=== PATIENT | female | born 1945 | race African-American/Black ===

== ENCOUNTER 2016-08-27 08:21 | Inpatient (IN) | payer MEDICARE, MEDICAID ==
[2016-08-27] MEDS ORDERED: Aspirin Low Dose CHEW TAB* 81 MG PO ONE (08:46)
--- NOTE | 2016-08-27 09:34 | RAD ---
Indication: Chest pain. Single frontal view of the chest performed at 0917 hours was reviewed. Comparison is made with previous exam dated February 03, 2015. No mediastinal shift is noted. There is cardiomegaly. Lung peguero demonstrate no pleural fluid, pneumonia or pneumothorax. IMPRESSION: CARDIOMEGALY WITH NO ACTIVE CARDIOPULMONARY DISEASE.
[2016-08-27] MEDS ORDERED: Ondansetron INJ* 2 MG/ML VIAL ONE (09:47)
[2016-08-27 09:48] LABS: Hematocrit 29 % (35-47); Hemoglobin 9.8 g/dl (12.0-16.0); Mean Corpuscular HGB Conc 34 g/dl (31-36); Mean Corpuscular Hemoglobin 26 pg (27-31); Mean Corpuscular Volume 78 fL (80-97); Mean Platelet Volume 8 um3 (7.4-10.4); Red Blood Count 3.78 10^6/ul (4.0-5.4); Red Cell Distribution Width 16 % (10.5-15); White Blood Count 13.8 10^3/ul (3.5-10.8)
[2016-08-27] MEDS ORDERED: Ondansetron INJ* 2 MG/ML VIAL IV ONE (09:54)
[2016-08-27 10:07] LABS: Albumin 2.9 g/dL (3.2-5.2); BUN/Creatinine Ratio 15.2 (8-20); Calcium 8.8 mg/dL (8.6-10.3); EGFR African American 43.9 (>60); EGFR Non-African American 34.2 (>60); Globulin 6.3 g/dL (2-4); Magnesium 1.9 mg/dL (1.9-2.7); Potassium 3.5 mmol/L (3.5-5.0); Total Bilirubin 0.4 mg/dL (0.2-1.0); Total Protein 9.2 g/dL (6.4-8.9)
[2016-08-27 10:08] LABS: Troponin I 0.03 ng/mL (<0.04)
[2016-08-27 10:43] LABS: T4 8.38 mcg/mL (6.09-12.23)
[2016-08-27 10:44] LABS: TSH (Thyroid Stimulating Horm) 0.89 mcIU/mL (0.34-5.60)
[2016-08-27] MEDS ORDERED: Levofloxacin 750 MG IVPREMIX(* 750 MG/150 ML BAG IVPB ONE (11:44)
[2016-08-27 12:01] LABS: C Reactive Protein 187.73 mg/L (< 5.00)
[2016-08-27 14:02] LABS: Urine Bacteria Absent (Absent); Urine Bilirubin Negative (Negative); Urine Glucose Negative (Negative); Urine Nitrite Negative (Negative)
[2016-08-27] MEDS ORDERED: Acetaminophen SUPP* 650 MG SUPP PR ONE (14:09)
--- NOTE | 2016-08-27 14:19 | RAD ---
Indication: Back pain, known aortic dissection. Real-time sonography of the abdominal was performed. Correlation is made with CTA of the chest dated July 17, 2016 CTA of the abdomen and pelvis dated February 03, 2015. The proximal aorta measures 27 x 27 mm, mid aorta measures 23 x 25 mm, distal aorta measures 21 x 19 mm. There is an intimal flap noted consistent with an aortic dissection. Right common iliac artery demonstrates 13 x 15 mm. The left common iliac artery measures 10 x 14 mm. The aortic dissection appears to be similar in appearance to that of the CT performed on February 03, 2015. No aneurysmal dilatation is noted. No extraluminal hematoma is noted. IMPRESSION: No evidence of abdominal aortic aneurysm is noted. Chronic aortic dissection. No evidence of extraluminal hematoma is noted.
[2016-08-27] MEDS ORDERED: NS 0.9% 1000 ML* 1,000 ML IV ONE ×2 (14:33→14:46)
[2016-08-27] MEDS ORDERED: Vancomycin per Pharmacy* NOTE FOLLOW UP PRN (15:15)
--- NOTE | 2016-08-27 15:29 | RAD ---
HISTORY: Confusion COMPARISONS: Head CT dated December 29, 2014 TECHNIQUE: Multiple contiguous axial CT scans were obtained of the head without intravenous contrast. FINDINGS: HEMORRHAGE/INFARCT: There is no hemorrhage or acute infarct. MASSES/SHIFT: There is no mass or shift. EXTRA-AXIAL SPACES: There are no extra-axial fluid collections. SULCI AND VENTRICLES: The sulci and ventricles are normal in size and position for the patient's stated age. CEREBRUM: There are no focal parenchymal abnormalities. BRAINSTEM: There are no focal parenchymal abnormalities. CEREBELLUM: There are no focal parenchymal abnormalities. VESSELS: The vessels are grossly normal. PARANASAL SINUSES: There is near-fluid level within the left maxillary sinus ORBITS: The orbits are unremarkable. BONES AND SOFT TISSUE: No bone or soft tissue abnormalities are noted. OTHER: None IMPRESSION: NO ACUTE INTRACRANIAL PATHOLOGY. MILD SINUS MUCOSAL INFLAMMATORY DISEASE, WITH AN AIR-FLUID LEVEL IN THE LEFT MAXILLARY SINUS. IN THE CORRECT CLINICAL SETTING, THIS MAY REPRESENT ACUTE SINUSITIS
[2016-08-27] MEDS ORDERED: Vancomycin(*) 1,250 MG in NS 0.9% 250 ML* 250 ML IVPB ONE (15:45)
[2016-08-27] MEDS ORDERED: NS 0.9% 1000 ML* 2,000 ML IV ONE (15:55)
[2016-08-27] MEDS ORDERED: Acetaminophen IV 1GM/100ML * 1,000 MG in PREMIX* 0 ML IVPB ONE (16:03)
[2016-08-27] MEDS ORDERED: Labetalol IV* 5 MG/ML 20 ML VIAL IV PUSH ONE (16:04)
[2016-08-27] MEDS ORDERED: Meropenem 1 GM PREMIX(*) 1 GM/50 ML BAG IV SCH (16:30)
[2016-08-27] MEDS ORDERED: Acetaminophen IV 1GM/100ML * 100 ML ONE (16:32)
[2016-08-27 17:00] LABS: Benzodiazepine Urine Screen None Detected (None Detect)
[2016-08-27] MEDS: Cefepime(*) 1 GM in NS 0.9% 50 ML* 50 ML IVPB SCH (18:08)
--- NOTE | 2016-08-27 18:55 | ED ---
Ankur Estrada Billy, scribed for Erik Pires MD on 08/27/16 at 0843 . HPI Chest Pain - HPI Summary HPI Summary: Patient is a 71 year-old female coming to [facility] for evaluation of ongoing pain behind the left shoulder blade that radiates to the left anterior chest. The pain has been gradually worsening over the last week. Family, who is in the room with her in the ED, states that she began to notice that the patient had become visibly uncomfortable 2 days ago. She also states that the patient had been behaving somewhat differently from normal. Positive dry cough. Denies nausea, vomiting, or abdominal pain. She has a history of an aortic dissection. - History of Current Complaint Chief Complaint: EDChestPainROMI Time Seen by Provider: 08/27/16 08:38 Hx Obtained From: Patient, Family/Evidence Technician Onset/Duration: Started Days Ago Timing: Constant Initial Severity: Moderate Current Severity: Moderate Pain Intensity: 6 Pain Scale Used: 0-10 Numeric Chest Pain Location: Left Anterior Chest Pain Radiates: Yes Chest Pain Radiates To:: Shoulder Associated Signs and Symptoms: Positive: Chest Pain, Nonproductive Cough. Negative: Nausea, Abdominal Pain, Vomiting - Additional Pertinent History Primary Care Physician: ANDRE - Allergy/Home Medications Allergies/Adverse Reactions: Allergies Allergy/AdvReac Type Severity Reaction Status Date / Time Amoxicillin Allergy Intermediate Itching Verified 05/02/16 12:57 Home Medications: Home Medications Labetalol TAB* [Trandate TAB*] 200 mg PO BID 08/27/16 [History Confirmed ] PMH/Surg Hx/FS Hx/Imm Hx Endocrine/Hematology History: Denies: Hx Diabetes Cardiovascular History: Reports: Hx Aneurysm - Ascending Aortic Aneurysm, Hx Embolism - PE, Hx Hypertension Denies: Hx Cardiac Arrest Respiratory History: Reports: Hx Pulmonary Embolism GI History: Reports: Hx Gastroesophageal Reflux Disease Denies: Other GI Disorders History: Denies: Hx Renal Disease Musculoskeletal History: Denies: Hx Arthritis, Hx Osteoporosis Sensory History: Reports: Hx Contacts or Glasses Denies: Hx Hearing Aid Opthamlomology History: Reports: Hx Contacts or Glasses - Cancer History Hx Chemotherapy: No Hx Radiation Therapy: No - Surgical History Surgery Procedure, Year, and Place: right leg fx repair 1987, bunion repair 2014 Hx Anesthesia Reactions: No Infectious Disease History: No Infectious Disease History: Denies: Traveled Outside the [place] in Last 30 Days - Family History Family History: No family history of breast cancer, malignant hyperthermia, or anesthesia reaction. - Social History Alcohol Use: None Substance Use Type: Reports: None Smoking Status (MU): Former Smoker Type: Cigarettes Amount Used/How Often: 5-6/DAY Length of Time of Smoking/Using Tobacco: 46 years Have You Smoked in the Last Year: No Review of Systems Positive: Chest Pain Positive: Cough Negative: Vomiting, Nausea Musculoskeletal: Other - left shoulder blade pain All Other Systems Reviewed And Are Negative: Yes Physical Exam - Summary Physical Exam Summary: VITAL SIGNS: Reviewed. GENERAL: Patient is a well-developed and nourished female who is lying comfortable in the stretcher. Patient is not in any acute respiratory distress. She is slightly anxious. HEAD AND FACE: No signs of trauma. No ecchymosis, hematomas or skull depressions. No sinus tenderness. EYES: PERRLA, EOMI x 2, No injected conjunctiva, no nystagmus. EARS: Hearing grossly intact. Ear canals and tympanic membranes are within normal limits. MOUTH: Oropharynx within normal limits. NECK: Supple, trachea is midline, no adenopathy, no JVD, no carotid bruit, no c- spine tenderness, neck with full ROM. CHEST: Symmetric, no tenderness at palpation LUNGS: Clear to auscultation bilaterally. No wheezing or crackles. CVS: Regular rate and rhythm, S1 and S2 present, no murmurs or gallops appreciated. ABDOMEN: Soft, non-tender. No signs of distention. No rebound no guarding, and no masses palpated. Bowel sounds are normal. EXTREMITIES: FROM in all major joints, no edema, no cyanosis or clubbing. NEURO: Alert and oriented x 3. No acute neurological deficits. Speech is normal and follows commands. SKIN: Dry and warm Triage Information Reviewed: Yes Vital Signs On Initial Exam: Initial Vitals Temp Pulse Resp BP Pulse Ox 100.3 F 114 18 141/72 97 08/27/16 08:28 08/27/16 08:28 08/27/16 08:28 08/27/16 08:28 08/27/16 08:28 Vital Signs Reviewed: Yes Diagnostics - Vital Signs Vital Signs Temp Pulse Resp BP Pulse Ox 08/27/16 08:33 100.3 F 114 18 141/72 97 08/27/16 08:28 100.3 F 114 18 141/72 97 - Laboratory Lab Results: Lab Results 08/27/16 08/27/16 08/27/16 Range/Units 09:37 09:37 09:37 WBC 13.8 H (3.5-10.8) 10^3/ul RBC 3.78 L (4.0-5.4) 10^6/ul Hgb 9.8 L (12.0-16.0) g/dl Hct 29 L (35-47) % MCV 78 L (80-97) fL MCH 26 L (27-31) pg MCHC 34 (31-36) g/dl RDW 16 H (10.5-15) % Plt Count 295 (150-450) 10^3/ul MPV 8 (7.4-10.4) um3 Neut % (Auto) 83.5 H (38-83) % Lymph % (Auto) 9.1 L (25-47) % [place] % (Auto) 6.7 (1-9) % Eos % (Auto) 0.3 (0-6) % Baso % (Auto) 0.4 (0-2) % Absolute Neuts (auto) 11.5 H (1.5-7.7) 10^3/ul Absolute Lymphs (auto) 1.3 (1.0-4.8) 10^3/ul Absolute Monos (auto) 0.9 H (0-0.8) 10^3/ul Absolute Eos (auto) 0 (0-0.6) 10^3/ul Absolute Basos (auto) 0.1 (0-0.2) 10^3/ul Absolute Nucleated RBC 0 10^3/ul Nucleated RBC % 0 Sodium 129 L (133-145) mmol/L Potassium 3.5 (3.5-5.0) mmol/L Chloride 98 L (101-111) mmol/L Carbon Dioxide 24 (22-32) mmol/L Anion Gap 7 (2-11) mmol/L BUN 23 (6-24) mg/dL Creatinine 1.51 H (0.51-0.95) mg/dL Est GFR ( Amer) 43.9 (>60) Est GFR (Non-Af Amer) 34.2 (>60) BUN/Creatinine Ratio 15.2 (8-20) Glucose 136 H (70-100) mg/dL Lactic Acid 1.9 (0.5-2.0) mmol/L Calcium 8.8 (8.6-10.3) mg/dL Magnesium 1.9 (1.9-2.7) mg/dL Total Bilirubin 0.40 (0.2-1.0) mg/dL AST 14 (13-39) U/L ALT 13 (7-52) U/L Alkaline Phosphatase 45 (34-104) U/L Total Creatine Kinase 61 (10-223) U/L Troponin I 0.03 (<0.04) ng/mL C-Reactive Protein 187.73 H (< 5.00) mg/L B-Natriuretic Peptide ( - 100) pg/mL Total Protein 9.2 H (6.4-8.9) g/dL Albumin 2.9 L (3.2-5.2) g/dL Globulin 6.3 H (2-4) g/dL Albumin/Globulin Ratio 0.5 L (1-3) TSH 0.89 (0.34-5.60) mcIU/mL Thyroxine (T4) 8.38 (6.09-12.23) mcg/mL Urine Color Urine Appearance Urine pH (5-9) Ur Specific [place] (1.010-1.030) Urine Protein (Negative) Urine Ketones (Negative) Urine Blood (Negative) Urine Nitrate (Negative) Urine Bilirubin (Negative) Urine Urobilinogen (Negative) Ur Leukocyte Esterase (Negative) Urine WBC (Auto) (Absent) Urine RBC (Auto) (Absent) Ur Squamous Epith Cells (Absent) Urine Bacteria (Absent) Urine Glucose (Negative) 08/27/16 08/27/16 08/27/16 Range/Units 09:37 12:50 13:38 WBC (3.5-10.8) 10^3/ul RBC (4.0-5.4) 10^6/ul Hgb (12.0-16.0) g/dl Hct (35-47) % MCV (80-97) fL MCH (27-31) pg MCHC (31-36) g/dl RDW (10.5-15) % Plt Count (150-450) 10^3/ul MPV (7.4-10.4) um3 Neut % (Auto) (38-83) % Lymph % (Auto) (25-47) % [place] % (Auto) (1-9) % Eos % (Auto) (0-6) % Baso % (Auto) (0-2) % Absolute Neuts (auto) (1.5-7.7) 10^3/ul Absolute Lymphs (auto) (1.0-4.8) 10^3/ul Absolute Monos (auto) (0-0.8) 10^3/ul Absolute Eos (auto) (0-0.6) 10^3/ul Absolute Basos (auto) (0-0.2) 10^3/ul Absolute Nucleated RBC 10^3/ul Nucleated RBC % Sodium (133-145) mmol/L Potassium (3.5-5.0) mmol/L Chloride (101-111) mmol/L Carbon Dioxide (22-32) mmol/L Anion Gap (2-11) mmol/L BUN (6-24) mg/dL Creatinine (0.51-0.95) mg/dL Est GFR ( Amer) (>60) Est GFR (Non-Af Amer) (>60) BUN/Creatinine Ratio (8-20) Glucose (70-100) mg/dL Lactic Acid (0.5-2.0) mmol/L Calcium (8.6-10.3) mg/dL Magnesium (1.9-2.7) mg/dL Total Bilirubin (0.2-1.0) mg/dL AST (13-39) U/L ALT (7-52) U/L Alkaline Phosphatase (34-104) U/L Total Creatine Kinase (10-223) U/L Troponin I 0.04 H* (<0.04) ng/mL C-Reactive Protein (< 5.00) mg/L B-Natriuretic Peptide 224 H ( - 100) pg/mL Total Protein (6.4-8.9) g/dL Albumin (3.2-5.2) g/dL Globulin (2-4) g/dL Albumin/Globulin Ratio (1-3) TSH (0.34-5.60) mcIU/mL Thyroxine (T4) (6.09-12.23) mcg/mL Urine Color Yellow Urine Appearance Clear Urine pH 5.0 (5-9) Ur Specific [place] 1.019 (1.010-1.030) Urine Protein 2+(100 mg/dl) H (Negative) Urine Ketones Negative (Negative) Urine Blood 1+ H (Negative) Urine Nitrate Negative (Negative) Urine Bilirubin Negative (Negative) Urine Urobilinogen Negative (Negative) Ur Leukocyte Esterase Negative (Negative) Urine WBC (Auto) Absent (Absent) Urine RBC (Auto) 1+(3-5/hpf) H (Absent) Ur Squamous Epith Cells Present H (Absent) Urine Bacteria Absent (Absent) Urine Glucose Negative (Negative) Result Diagrams: 08/27/16 09:37 08/27/16 09:37 Lab Statement: Any lab studies that have been ordered have been reviewed, and results considered in the medical decision making process. - Radiology CXR Radiology Interpretation Completed By: Radiologist - Cardiomegaly. No acute findings. - Ultrasound No standard instances Ultrasound Interpretation Completed By: Radiologist - Abdominal aorta ultrasound : No evidence of abdominal aortic aneurysm is noted. Chronic aortic dissection. No evidence of extraluminal hematoma is noted. - EKG 1007 EKG Interpretation: sinus tachycardia 108 bpm, ST depressions in V4-V6 EKG Comparison: No Significant Change - Compared to 02/03/15 Chest Pain Course/Dx - Course Assessment/Plan: Patient is a 71 year-old female coming to [facility] for evaluation of ongoing pain behind the left shoulder blade that radiates to the left anterior chest. The pain has been gradually worsening over the last week. Family , who is in the room with her in the ED, states that she began to notice that the patient had become visibly uncomfortable 2 days ago. She also states that the patient had been behaving somewhat differently from normal. Positive dry cough. Denies nausea, vomiting, or abdominal pain. She has a history of an aortic dissection. Test results WNL except for WBC of 13.8, Hgb of 9.8, Hct of 29. The patient does not have any bandemia. Sodium is 129, BUN of 23, and creatinine of 1.51 which is consistent with acute on chronic renal failure. Glucose is 136. Troponin of 0.03, CRP of 187.73, and BNP is 224. UA is negative for UTI. The second troponin is 0.04. CXR shows cardiomegaly without acute cardiopulmonary disease, however my own review of the CXR shows that the patient may be develop left lower lobe and right lower lobe pneumonia, and since the patient has an increased WBC, CRP, and fever, the patient was given Levaquin and Tylenol as well as continued hydration. The patient has a history of AAA therefore I ordered an ultrasound of the aorta which showed No evidence of abdominal aortic aneurysm is noted. Chronic aortic dissection. No evidence of extraluminal hematoma is noted. At this time, I discussed my physical exam findings with Dr. Benitez who assessed the patient. She also started the patient on Meropenem as well as Vancomycin. - Chest Pain Differential Diagnosis/HQI/PQRI: Acute VA, Angina, CHF, Chest Wall, Lower Respiratory Infection - Diagnoses Provider Diagnoses: pneumonia r/o sepsis, elevated troponin r/o ACS - Provider Notifications Discussed Care Of Patient With: Maritza Benitez - Accepts admission. Time Discussed With Above Provider: 13:44 Discharge - Discharge Plan Condition: Guarded Disposition: ADMITTED TO [facility] The documentation as recorded by the Ankur francois Billy accurately reflects the service I personally performed and the decisions made by me, Erik Pires MD.
--- NOTE | 2016-08-27 21:45 | HP ---
HOSPITAL MEDICINE HISTORY AND PHYSICAL: DATE OF ADMISSION: 08/27/16 PRIMARY CARE PHYSICIAN: Erik Flores MD ATTENDING PHYSICIAN: Dr. Emanuel Kerr* (dictation provided by Lakeisha Marin NP ) CHIEF COMPLAINT: Altered mental status. HISTORY OF PRESENT ILLNESS: Ms. Johnston is a 71-year-old female with a past medical history of hypertension, history of PE, and history of aortic dissection who presents today to the hospital with concern for nausea, vomiting , and altered mental status. Ms. Johnston is quite confused in the emergency room and not able to provide any reliable information. She lives with her daughter, Jesus, but her daughter is also not very clear on the events preceding her presentation to the ED. The best that I can ascertain the patient has been sick for about a week. The daughter noted that she did have some nausea and vomiting and just appeared unwell. She does not know whether the patient had a fever. She saw the patient today and noted that she seemed very confused and therefore brought her to the emergency room for evaluation. In the emergency room, Ms. Johnston again has altered mental status with confusion and lethargy. She does awaken to voice. She has a fever to 103.1. She has mild leukocytosis with a white count of 13.8 and her CRP is elevated at 187.73. Her creatinine is 1.51 which is essentially at her baseline. Her lactic acid is only 1.9. Urine shows no evidence of infection. Chest x-ray is read as showing no infiltrate, but there is concern for possible infiltrate per my view along the left side. PAST MEDICAL HISTORY: 1. Hypertension. 2. PE, on DVT. 3. History of aortic dissection, type B. 4. History of GERD. MEDICATIONS: Outpatient are listed only to be labetalol 200 mg p.o. b.i.d., which the daughter confirms and that she only takes 1 tablet twice daily. ALLERGIES: AMOXICILLIN, which causes itching. FAMILY HISTORY: Unobtainable. SOCIAL HISTORY: Supportive that the patient was a previous smoker, but I am unable to confirm this with her. No report of alcoholism. The patient lives with her daughter, Jesus, with phone number . REVIEW OF SYSTEMS: Unobtainable. PHYSICAL EXAMINATION GENERAL: Ms. Johnston is lying in the bed. She is lying on her side and appears uncomfortable. She awakens easily to voice. She knows her name, but is not able to tell me where she is. She moves all extremities equally. She has some difficulty following instructions, but is able to technology auditor by both hands and follow commands to take deep inspirations for the exam. VITAL SIGNS: Temperature 103.1, heart rate 113, respiratory rate 22, O2 saturation 97% on room air, and blood pressure 201/103. LUNGS: Clear to auscultation bilaterally with no accessory muscle use and good aeration. HEART: S1, S2. No murmur, rub, or gallop and regular. ABDOMEN: Soft and nontender with bowel sounds positive x4. EXTREMITIES: No cyanosis. No edema. SKIN: Intact. DIAGNOSTIC STUDIES/LAB DATA: WBC 13.8, hemoglobin 9.8, hematocrit 29, and platelet count 295. Sodium 129, potassium 3.5, chloride 98, serum bicarbonate 24, BUN 23, creatinine 1.51, glucose 136, and lactic acid 1.9. Troponin 0.03. CRP 187.73. BNP 224. Urine shows no evidence of infection. Chest x-ray is read as showing no infiltrate or acute abnormality. Question whether perhaps there are an early infiltrate on the left. Aorta ultrasound: "No evidence of abdominal aortic aneurysm is noted. Chronic aortic dissection. No evidence of intraluminal hematoma is noted." Brain CT shows "no acute intracranial pathology. Mild sinus mucosal inflammatory disease with air fluid level in the left maxillary sinus." ASSESSMENT: Ms. Johnston is a 71-year-old female with a past medical history of hypertension, aortic dissection, and pulmonary embolism who presents today to the hospital with concern for altered mental status in the setting of a week- long history of illness with nausea and vomiting. In the emergency room, she has tachycardia, fever to 103, and altered mental status consistent with severe sepsis. Our plans are for admission to the intensive care unit for the following : 1. Severe sepsis: The patient received Levaquin in the emergency room. I plan to switch over to broad-spectrum antibiotics with vancomycin and cefepime. The patient has a history of MRSA in a wound in the past. The source of her infection is not clear. She has no focal tenderness in the abdomen or along the spine. Her skin is intact. Chest x-ray is normal. Urine is normal. She is able to move her neck freely on command without any evidence of pain. Plans are for now to continue with broad-spectrum antibiotics and IV fluids and await results from blood cultures to guide further testing. 2. Hypertension: The patient's blood pressure is dramatically elevated in the emergency room to approximately 211 systolically. Plan to hydrate and provide her with a one-time dose of labetalol. We will resume home labetalol when appropriate based on clinical course. 3. History of aortic dissection: The patient's aortic ultrasound showed chronic dissection, but no acute intraluminal hematoma. 4. DVT prophylaxis: Heparin subcu and SCDs. 5. Code status: Full code. TIME SPENT: Approximately 75 minutes was spent in the admission of this patient , more than half of the time was spent with the patient at the bedside reviewing the events leading up to this hospitalization, performing the physical examination, and reviewing my plan of care. LAKEISHA MARIN NP CC: Dr. Flores* [id number]/[facility] #: [id number] GEORGINA
[2016-08-27] MEDS: Acetaminophen TAB* 325 MG PO PRN (21:58)
[2016-08-27] MEDS ORDERED: Heparin VIAL(*) 5000 UNITS/ML VIAL (FIVE THOUSAND) SUBCUT SCH (22:00)
[2016-08-28] MEDS: Vancomycin(*) 1,500 MG in NS 0.9% 250 ML* 250 ML IVPB SCH ×2 (04:10→16:57)
[2016-08-28] MEDS: Cefepime(*) 1 GM in NS 0.9% 50 ML* 50 ML IVPB SCH ×2 (05:46→18:36)
[2016-08-28] MEDS: Acetaminophen TAB* 325 MG PO PRN ×4 (05:47→23:49)
[2016-08-28 06:00] LABS: Hematocrit 28 % (35-47); Hemoglobin 9.5 g/dl (12.0-16.0); Mean Corpuscular HGB Conc 34 g/dl (31-36); Mean Corpuscular Hemoglobin 26 pg (27-31); Mean Corpuscular Volume 77 fL (80-97); Mean Platelet Volume 8 um3 (7.4-10.4); Red Blood Count 3.64 10^6/ul (4.0-5.4); Red Cell Distribution Width 16 % (10.5-15); White Blood Count 12.8 10^3/ul (3.5-10.8)
[2016-08-28 06:11] LABS: BUN/Creatinine Ratio 14.2 (8-20); Calcium 8.5 mg/dL (8.6-10.3); EGFR African American 57.3 (>60); EGFR Non-African American 44.5 (>60); Potassium 3.6 mmol/L (3.5-5.0)
--- NOTE | 2016-08-28 12:22 | PN ---
Progress Note - Progress Note Note: CRITICAL CARE MEDICINE Date: 08/28/16 Time: 1100 SUBJECTIVE: Patient seen and examined. PHYSICAL EXAM: Vital Signs: Reviewed. Neurologic: communicating, nonfocal. HEENT: pupils equal. Sclera anicteric. Trachea midline. Cardiovascular: S1 S2, bp up a little Respiratory: mild rhonchi in left base Abdomen: Soft, nt. No r/g/r. Extremities: Warm. Access: piv LABS: Reviewed. IMAGING: Reviewed. MEDICATIONS: Reviewed. ASSESSMENT/PLAN: 71 F Admitted with sepsis and hypertensive urgency and acute encephlopathy - multifactorial, incl septic. Encephalopathy has dissipated. No clear septic source but BC still pending. Needs f/u to question whether further imaging needed. Pt tells me much of this seemed to come on about a week ago after she ate [place] food. Can check stool culture for what its worth. Question more viral gastroenteritis. On broad spectrum abx for now and again f/u cx. Consider CT abd but no abd complaints nor exam pointing that way currently. HTN is better, but needs to resume her outpt labetalol po Ok for floor Supportive and preventative care as ordered. SUP: po VTE prophylaxis: heparin Mcbride catheter out Disposition: floor Code Status: Full Critical Care Time: 25min FLaury Kerr DO
[2016-08-28] MEDS: Labetalol TAB* 200 MG PO SCH ×2 (12:34→20:58)
[2016-08-28] MEDS: NS 0.9% 1000 ML* 1,000 ML IV SCH (14:30)
[2016-08-28] MEDS: Heparin VIAL(*) 5000 UNITS/ML VIAL (FIVE THOUSAND) SUBCUT SCH ×2 (14:31→21:32)
[2016-08-28] MEDS ORDERED: PROCHLORPERAZINE INJ 5 MG/ML 2 ML VIAL ONE (17:53)
[2016-08-28] MEDS ORDERED: Metoprolol Tartrate IV* 1 MG/ML 5 ML VIAL IV PRN (19:53)
[2016-08-29] MEDS: NS 0.9% 1000 ML* 1,000 ML IV SCH ×2 (02:39→19:45)
[2016-08-29] MEDS: Vancomycin(*) 1,500 MG in NS 0.9% 250 ML* 250 ML IVPB SCH (03:48)
[2016-08-29] MEDS: Heparin VIAL(*) 5000 UNITS/ML VIAL (FIVE THOUSAND) SUBCUT SCH ×3 (05:45→22:11)
[2016-08-29 06:25] LABS: Hematocrit 26 % (35-47); Hemoglobin 8.9 g/dl (12.0-16.0); Mean Corpuscular HGB Conc 34 g/dl (31-36); Mean Corpuscular Hemoglobin 26 pg (27-31); Mean Corpuscular Volume 78 fL (80-97); Mean Platelet Volume 8 um3 (7.4-10.4); Red Blood Count 3.36 10^6/ul (4.0-5.4); Red Cell Distribution Width 16 % (10.5-15); White Blood Count 9.7 10^3/ul (3.5-10.8)
[2016-08-29 06:36] LABS: BUN/Creatinine Ratio 11.9 (8-20); Calcium 8.4 mg/dL (8.6-10.3); EGFR African American 58.4 (>60); EGFR Non-African American 45.4 (>60); Potassium 3.3 mmol/L (3.5-5.0)
[2016-08-29] MEDS: Cefepime(*) 1 GM in NS 0.9% 50 ML* 50 ML IVPB SCH (06:50)
--- NOTE | 2016-08-29 08:58 | PN ---
Subjective Date of Service: 08/29/16 Interval History: Feels better. She states she has had a cough with white sputum for about a week , SOB, both progressive but better today. No new c/o. She states she quit smoking 3 yrs ago. Objective Active Medications: Acetaminophen (Tylenol Tab*) 650 mg PO Q4H PRN PRN Reason: FEVER Last Admin: 08/28/16 23:49 Dose: 650 mg Guaifenesin (Robitussin*) 10 ml PO QID [facility] Heparin Sodium (Porcine) (Heparin Vial(*)) 5,000 units SUBCUT Q8HR [facility] Last Admin: 08/29/16 05:45 Dose: 5,000 units Vancomycin HCl 1,500 mg/ (Sodium Chloride) 250 mls @ 166.667 mls/hr IVPB Q12H [facility] Last Admin: 08/29/16 03:48 Dose: 166.667 mls/hr Cefepime HCl 1 gm/ Sodium (Chloride) 50 mls @ 100 mls/hr IVPB Q12H [facility] Last Admin: 08/29/16 06:50 Dose: 100 mls/hr Sodium Chloride (Ns 0.9% 1000 Ml*) 1,000 mls @ 50 mls/hr IV PER RATE [facility] Labetalol HCl (Trandate Tab*) 200 mg PO BID [facility] Last Admin: 08/28/16 20:58 Dose: 200 mg Metoprolol Tartrate (Lopressor Iv*) 5 mg IV Q6H PRN PRN Reason: BLOOD PRESSURE Pharmacy Consult (Vancomycin Per Pharmacy*) 1 note FOLLOW UP . PRN PRN Reason: PER PROTOCOL Pharmacy Profile Note (Vancomycin Trough Check) 1 note FOLLOW UP 1530 ONE Stop: 08/29/16 15:31 Vital Signs 08/28/16 08/28/16 08/28/16 09:00 10:00 11:00 Temperature 100.6 F 100.8 F 101.5 F Pulse Rate 98 100 90 Respiratory 22 27 26 Rate Blood Pressure 153/96 144/77 165/85 (mmHg) O2 Sat by Pulse 95 94 96 Oximetry 08/28/16 08/28/16 08/28/16 16:21 16:27 19:17 Temperature 99.6 F 99.6 F 100.8 F Pulse Rate 86 86 95 Respiratory 17 17 16 Rate Blood Pressure 136/75 136/75 171/83 (mmHg) O2 Sat by Pulse 96 96 97 Oximetry 08/28/16 08/28/16 08/28/16 19:34 22:45 23:22 Temperature 98.8 F Pulse Rate Respiratory 17 Rate Blood Pressure 172/76 (mmHg) O2 Sat by Pulse Oximetry 08/28/16 08/29/16 08/29/16 23:49 02:16 03:41 Temperature 99.2 F 99.6 F Pulse Rate 86 86 Respiratory 16 20 Rate Blood Pressure 140/79 138/72 (mmHg) O2 Sat by Pulse 99 99 97 Oximetry 08/29/16 07:28 Temperature 100.5 F Pulse Rate 91 Respiratory 17 Rate Blood Pressure 147/83 (mmHg) O2 Sat by Pulse 98 Oximetry Oxygen Devices in Use Now: None Appearance: Alert, in chair. In good spirits. Looks comfortable. Occ mild productive cough. Eyes: No Scleral Icterus Ears/Nose/Mouth/Throat: Clear Oropharnyx, Mucous Membranes Moist Neck: NL Appearance and Movements; NL JVP, No Thyroid Enlargement, Masses Respiratory: Symmetrical Chest Expansion and Respiratory Effort, Clear to Auscultation, Clear to Percussion Cardiovascular: NL Sounds; No Murmurs; No JVD, RRR, No Edema, - Extremities: No Edema, No Clubbing, Cyanosis, - Skin: No Rash or Ulcers, No Nodules or Sclerosis, - Neurological: Alert and Oriented x 3, NL Sensation Result Diagrams: 08/29/16 06:14 08/29/16 06:14 Additional Lab and Data: Lab Results 08/27/16 08/27/16 08/27/16 Range/Units 09:37 09:37 09:37 WBC 13.8 H (3.5-10.8) 10^3/ul RBC 3.78 L (4.0-5.4) 10^6/ul Hgb 9.8 L (12.0-16.0) g/dl Hct 29 L (35-47) % MCV 78 L (80-97) fL MCH 26 L (27-31) pg MCHC 34 (31-36) g/dl RDW 16 H (10.5-15) % Plt Count 295 (150-450) 10^3/ul MPV 8 (7.4-10.4) um3 Neut % (Auto) 83.5 H (38-83) % Lymph % (Auto) 9.1 L (25-47) % Phelps % (Auto) 6.7 (1-9) % Eos % (Auto) 0.3 (0-6) % Baso % (Auto) 0.4 (0-2) % Absolute Neuts (auto) 11.5 H (1.5-7.7) 10^3/ul Absolute Lymphs (auto) 1.3 (1.0-4.8) 10^3/ul Absolute Monos (auto) 0.9 H (0-0.8) 10^3/ul Absolute Eos (auto) 0 (0-0.6) 10^3/ul Absolute Basos (auto) 0.1 (0-0.2) 10^3/ul Absolute Nucleated RBC 0 10^3/ul Nucleated RBC % 0 Sodium 129 L (133-145) mmol/L Potassium 3.5 (3.5-5.0) mmol/L Chloride 98 L (101-111) mmol/L Carbon Dioxide 24 (22-32) mmol/L Anion Gap 7 (2-11) mmol/L BUN 23 (6-24) mg/dL Creatinine 1.51 H (0.51-0.95) mg/dL Est GFR ( Amer) 43.9 (>60) Est GFR (Non-Af Amer) 34.2 (>60) BUN/Creatinine Ratio 15.2 (8-20) Glucose 136 H (70-100) mg/dL Lactic Acid 1.9 (0.5-2.0) mmol/L Calcium 8.8 (8.6-10.3) mg/dL Magnesium 1.9 (1.9-2.7) mg/dL Total Bilirubin 0.40 (0.2-1.0) mg/dL AST 14 (13-39) U/L ALT 13 (7-52) U/L Alkaline Phosphatase 45 (34-104) U/L Total Creatine Kinase 61 (10-223) U/L Troponin I 0.03 (<0.04) ng/mL C-Reactive Protein 187.73 H (< 5.00) mg/L B-Natriuretic Peptide ( - 100) pg/mL Total Protein 9.2 H (6.4-8.9) g/dL Albumin 2.9 L (3.2-5.2) g/dL Globulin 6.3 H (2-4) g/dL Albumin/Globulin Ratio 0.5 L (1-3) TSH 0.89 (0.34-5.60) mcIU/mL Thyroxine (T4) 8.38 (6.09-12.23) mcg/mL Urine Color Urine Appearance Urine pH (5-9) Ur Specific [place] (1.010-1.030) Urine Protein (Negative) Urine Ketones (Negative) Urine Blood (Negative) Urine Nitrate (Negative) Urine Bilirubin (Negative) Urine Urobilinogen (Negative) Ur Leukocyte Esterase (Negative) Urine WBC (Auto) (Absent) Urine RBC (Auto) (Absent) Ur Squamous Epith Cells (Absent) Urine Bacteria (Absent) Urine Glucose (Negative) 08/27/16 08/27/16 08/27/16 Range/Units 09:37 12:50 13:38 WBC (3.5-10.8) 10^3/ul RBC (4.0-5.4) 10^6/ul Hgb (12.0-16.0) g/dl Hct (35-47) % MCV (80-97) fL MCH (27-31) pg MCHC (31-36) g/dl RDW (10.5-15) % Plt Count (150-450) 10^3/ul MPV (7.4-10.4) um3 Neut % (Auto) (38-83) % Lymph % (Auto) (25-47) % Phelps % (Auto) (1-9) % Eos % (Auto) (0-6) % Baso % (Auto) (0-2) % Absolute Neuts (auto) (1.5-7.7) 10^3/ul Absolute Lymphs (auto) (1.0-4.8) 10^3/ul Absolute Monos (auto) (0-0.8) 10^3/ul Absolute Eos (auto) (0-0.6) 10^3/ul Absolute Basos (auto) (0-0.2) 10^3/ul Absolute Nucleated RBC 10^3/ul Nucleated RBC % Sodium (133-145) mmol/L Potassium (3.5-5.0) mmol/L Chloride (101-111) mmol/L Carbon Dioxide (22-32) mmol/L Anion Gap (2-11) mmol/L BUN (6-24) mg/dL Creatinine (0.51-0.95) mg/dL Est GFR ( Amer) (>60) Est GFR (Non-Af Amer) (>60) BUN/Creatinine Ratio (8-20) Glucose (70-100) mg/dL Lactic Acid (0.5-2.0) mmol/L Calcium (8.6-10.3) mg/dL Magnesium (1.9-2.7) mg/dL Total Bilirubin (0.2-1.0) mg/dL AST (13-39) U/L ALT (7-52) U/L Alkaline Phosphatase (34-104) U/L Total Creatine Kinase (10-223) U/L Troponin I 0.04 H* (<0.04) ng/mL C-Reactive Protein (< 5.00) mg/L B-Natriuretic Peptide 224 H ( - 100) pg/mL Total Protein (6.4-8.9) g/dL Albumin (3.2-5.2) g/dL Globulin (2-4) g/dL Albumin/Globulin Ratio (1-3) TSH (0.34-5.60) mcIU/mL Thyroxine (T4) (6.09-12.23) mcg/mL Urine Color Yellow Urine Appearance Clear Urine pH 5.0 (5-9) Ur Specific [place] 1.019 (1.010-1.030) Urine Protein 2+(100 mg/dl) H (Negative) Urine Ketones Negative (Negative) Urine Blood 1+ H (Negative) Urine Nitrate Negative (Negative) Urine Bilirubin Negative (Negative) Urine Urobilinogen Negative (Negative) Ur Leukocyte Esterase Negative (Negative) Urine WBC (Auto) Absent (Absent) Urine RBC (Auto) 1+(3-5/hpf) H (Absent) Ur Squamous Epith Cells Present H (Absent) Urine Bacteria Absent (Absent) Urine Glucose Negative (Negative) Microbiology and Other Data: Microbiology 08/28/16 05:36 Aerobic Blood Culture - Preliminary Blood Venous No Growth Day 1 Anaerobic Blood Culture - Preliminary No Growth Day 1 Assess/Plan/Problems-Billing Assessment: - Patient Problems (1) Severe sepsis Current Visit: Yes Status: Acute Code(s): A41.9 - SEPSIS, UNSPECIFIED ORGANISM; R65.20 - SEVERE SEPSIS WITHOUT SEPTIC SHOCK SNOMED Code(s): 90815402 Comment: With metabolic encephalopathy. Due to COPD exacerbation/acute bronchitis. Improved. Continue cefepime, vanco. Add guaifenesin. (2) HTN (hypertension) Current Visit: Yes Status: Acute Code(s): I10 - ESSENTIAL (PRIMARY) HYPERTENSION SNOMED Code(s): 11547850 Comment: Continue labetalol.
[2016-08-29] MEDS: guaiFENesin LIQ* 100 MG/5 ML UDC PO SCH ×4 (09:13→19:39)
[2016-08-29] MEDS: Labetalol TAB* 200 MG PO SCH ×2 (09:13→19:38)
[2016-08-29] MEDS: Acetaminophen TAB* 325 MG PO PRN ×2 (09:13→19:38)
[2016-08-29] MEDS ORDERED: Vancomycin Trough Check NOTE FOLLOW UP ONE (15:30)
[2016-08-29] MEDS: DOXYcycline IV* 100 MG in NS 0.9% 250 ML* 250 ML IVPB SCH (17:47)
[2016-08-30] MEDS: NS 0.9% 1000 ML* 1,000 ML IV SCH (01:22)
[2016-08-30] MEDS: Heparin VIAL(*) 5000 UNITS/ML VIAL (FIVE THOUSAND) SUBCUT SCH ×3 (05:30→21:21)
[2016-08-30] MEDS: DOXYcycline IV* 100 MG in NS 0.9% 250 ML* 250 ML IVPB SCH (05:31)
[2016-08-30] MEDS: Labetalol TAB* 200 MG PO SCH ×2 (09:13→20:34)
[2016-08-30] MEDS: guaiFENesin LIQ* 100 MG/5 ML UDC PO SCH ×4 (09:13→20:34)
[2016-08-30] MEDS ORDERED: amLODIPine TAB* 5 MG PO SCH (14:00)
--- NOTE | 2016-08-30 15:30 | PN ---
Subjective Date of Service: 08/30/16 Interval History: pt feels well. still has occasional dry cough. Poor historian. Had left flank pain that resolved several days ago. Denies diarrhea or abd pain. does not remember any symptoms prior to her arrival to ED apart for feeing unwell and fever x 2-3 days. Objective Active Medications: Acetaminophen (Tylenol Tab*) 650 mg PO Q4H PRN PRN Reason: FEVER Last Admin: 08/29/16 19:38 Dose: 650 mg Amlodipine Besylate (Norvasc Tab*) 5 mg PO DAILY [facility] Last Admin: 08/30/16 14:22 Dose: 5 mg Doxycycline Hyclate (Vibramycin Cap(*)) 100 mg PO BID [facility] Guaifenesin (Robitussin*) 10 ml PO QID [facility] Last Admin: 08/30/16 12:40 Dose: 10 ml Heparin Sodium (Porcine) (Heparin Vial(*)) 5,000 units SUBCUT Q8HR [facility] Last Admin: 08/30/16 12:46 Dose: 5,000 units Labetalol HCl (Trandate Tab*) 200 mg PO BID [facility] Last Admin: 08/30/16 09:13 Dose: 200 mg Metoprolol Tartrate (Lopressor Iv*) 5 mg IV Q6H PRN PRN Reason: BLOOD PRESSURE Vital Signs 08/29/16 08/29/16 08/29/16 19:16 19:49 20:44 Temperature 100.2 F 99.3 F Pulse Rate 87 80 Respiratory 16 22 Rate Blood Pressure 172/85 114/70 (mmHg) O2 Sat by Pulse 98 97 Oximetry 08/29/16 08/30/16 08/30/16 23:13 03:43 07:38 Temperature 98.8 F 98.3 F 98.8 F Pulse Rate 85 83 82 Respiratory 18 21 Rate Blood Pressure 136/70 152/81 165/80 (mmHg) O2 Sat by Pulse 97 99 99 Oximetry 08/30/16 08:00 Temperature Pulse Rate Respiratory 16 Rate Blood Pressure (mmHg) O2 Sat by Pulse Oximetry Oxygen Devices in Use Now: None Appearance: 71 yo F in nAD, aAOx3, poor historian Eyes: No Scleral Icterus, PERRLA Ears/Nose/Mouth/Throat: NL Teeth, Lips, Gums, Mucous Membranes Moist Neck: NL Appearance and Movements; NL JVP, Trachea Midline Respiratory: Symmetrical Chest Expansion and Respiratory Effort, Clear to Auscultation Cardiovascular: NL Sounds; No Murmurs; No JVD, RRR Abdominal: NL Sounds; No Tenderness; No Distention, No Hepatosplenomegaly Lymphatic: No Cervical Adenopathy Extremities: No Edema, No Clubbing, Cyanosis Skin: No Rash or Ulcers, No Nodules or Sclerosis Neurological: Alert and Oriented x 3, NL Muscle Strength and Tone Result Diagrams: 08/29/16 06:14 08/29/16 06:14 Additional Lab and Data: Lab Results 08/27/16 08/27/16 08/27/16 Range/Units 09:37 09:37 09:37 WBC 13.8 H (3.5-10.8) 10^3/ul RBC 3.78 L (4.0-5.4) 10^6/ul Hgb 9.8 L (12.0-16.0) g/dl Hct 29 L (35-47) % MCV 78 L (80-97) fL MCH 26 L (27-31) pg MCHC 34 (31-36) g/dl RDW 16 H (10.5-15) % Plt Count 295 (150-450) 10^3/ul MPV 8 (7.4-10.4) um3 Neut % (Auto) 83.5 H (38-83) % Lymph % (Auto) 9.1 L (25-47) % Pettis % (Auto) 6.7 (1-9) % Eos % (Auto) 0.3 (0-6) % Baso % (Auto) 0.4 (0-2) % Absolute Neuts (auto) 11.5 H (1.5-7.7) 10^3/ul Absolute Lymphs (auto) 1.3 (1.0-4.8) 10^3/ul Absolute Monos (auto) 0.9 H (0-0.8) 10^3/ul Absolute Eos (auto) 0 (0-0.6) 10^3/ul Absolute Basos (auto) 0.1 (0-0.2) 10^3/ul Absolute Nucleated RBC 0 10^3/ul Nucleated RBC % 0 Sodium 129 L (133-145) mmol/L Potassium 3.5 (3.5-5.0) mmol/L Chloride 98 L (101-111) mmol/L Carbon Dioxide 24 (22-32) mmol/L Anion Gap 7 (2-11) mmol/L BUN 23 (6-24) mg/dL Creatinine 1.51 H (0.51-0.95) mg/dL Est GFR ( Amer) 43.9 (>60) Est GFR (Non-Af Amer) 34.2 (>60) BUN/Creatinine Ratio 15.2 (8-20) Glucose 136 H (70-100) mg/dL Lactic Acid 1.9 (0.5-2.0) mmol/L Calcium 8.8 (8.6-10.3) mg/dL Magnesium 1.9 (1.9-2.7) mg/dL Total Bilirubin 0.40 (0.2-1.0) mg/dL AST 14 (13-39) U/L ALT 13 (7-52) U/L Alkaline Phosphatase 45 (34-104) U/L Total Creatine Kinase 61 (10-223) U/L Troponin I 0.03 (<0.04) ng/mL C-Reactive Protein 187.73 H (< 5.00) mg/L B-Natriuretic Peptide ( - 100) pg/mL Total Protein 9.2 H (6.4-8.9) g/dL Albumin 2.9 L (3.2-5.2) g/dL Globulin 6.3 H (2-4) g/dL Albumin/Globulin Ratio 0.5 L (1-3) TSH 0.89 (0.34-5.60) mcIU/mL Thyroxine (T4) 8.38 (6.09-12.23) mcg/mL Urine Color Urine Appearance Urine pH (5-9) Ur Specific [place] (1.010-1.030) Urine Protein (Negative) Urine Ketones (Negative) Urine Blood (Negative) Urine Nitrate (Negative) Urine Bilirubin (Negative) Urine Urobilinogen (Negative) Ur Leukocyte Esterase (Negative) Urine WBC (Auto) (Absent) Urine RBC (Auto) (Absent) Ur Squamous Epith Cells (Absent) Urine Bacteria (Absent) Urine Glucose (Negative) 08/27/16 08/27/16 08/27/16 Range/Units 09:37 12:50 13:38 WBC (3.5-10.8) 10^3/ul RBC (4.0-5.4) 10^6/ul Hgb (12.0-16.0) g/dl Hct (35-47) % MCV (80-97) fL MCH (27-31) pg MCHC (31-36) g/dl RDW (10.5-15) % Plt Count (150-450) 10^3/ul MPV (7.4-10.4) um3 Neut % (Auto) (38-83) % Lymph % (Auto) (25-47) % Pettis % (Auto) (1-9) % Eos % (Auto) (0-6) % Baso % (Auto) (0-2) % Absolute Neuts (auto) (1.5-7.7) 10^3/ul Absolute Lymphs (auto) (1.0-4.8) 10^3/ul Absolute Monos (auto) (0-0.8) 10^3/ul Absolute Eos (auto) (0-0.6) 10^3/ul Absolute Basos (auto) (0-0.2) 10^3/ul Absolute Nucleated RBC 10^3/ul Nucleated RBC % Sodium (133-145) mmol/L Potassium (3.5-5.0) mmol/L Chloride (101-111) mmol/L Carbon Dioxide (22-32) mmol/L Anion Gap (2-11) mmol/L BUN (6-24) mg/dL Creatinine (0.51-0.95) mg/dL Est GFR ( Amer) (>60) Est GFR (Non-Af Amer) (>60) BUN/Creatinine Ratio (8-20) Glucose (70-100) mg/dL Lactic Acid (0.5-2.0) mmol/L Calcium (8.6-10.3) mg/dL Magnesium (1.9-2.7) mg/dL Total Bilirubin (0.2-1.0) mg/dL AST (13-39) U/L ALT (7-52) U/L Alkaline Phosphatase (34-104) U/L Total Creatine Kinase (10-223) U/L Troponin I 0.04 H* (<0.04) ng/mL C-Reactive Protein (< 5.00) mg/L B-Natriuretic Peptide 224 H ( - 100) pg/mL Total Protein (6.4-8.9) g/dL Albumin (3.2-5.2) g/dL Globulin (2-4) g/dL Albumin/Globulin Ratio (1-3) TSH (0.34-5.60) mcIU/mL Thyroxine (T4) (6.09-12.23) mcg/mL Urine Color Yellow Urine Appearance Clear Urine pH 5.0 (5-9) Ur Specific [place] 1.019 (1.010-1.030) Urine Protein 2+(100 mg/dl) H (Negative) Urine Ketones Negative (Negative) Urine Blood 1+ H (Negative) Urine Nitrate Negative (Negative) Urine Bilirubin Negative (Negative) Urine Urobilinogen Negative (Negative) Ur Leukocyte Esterase Negative (Negative) Urine WBC (Auto) Absent (Absent) Urine RBC (Auto) 1+(3-5/hpf) H (Absent) Ur Squamous Epith Cells Present H (Absent) Urine Bacteria Absent (Absent) Urine Glucose Negative (Negative) Microbiology and Other Data: Microbiology 08/28/16 05:36 Aerobic Blood Culture - Preliminary Blood Venous No Growth Day 1 Anaerobic Blood Culture - Preliminary No Growth Day 1 Assess/Plan/Problems-Billing Assessment: 71 yo F with h/o HTN, thoracic aortic dissection (chronic), CKD stage 3 due to HTN presents with confusion, fever of 101 and SBP>200. - Patient Problems (1) Severe sepsis Comment: With metabolic encephalopathy. Due to COPD exacerbation/acute bronchitis. Improved. continue doxy Cefepime /Vanco discontinued on 08/29/16 (2) Hypertensive urgency Comment: Resolved SBP's in 160's range, will add Norvasc to Labetalol (3) DVT prophylaxis Comment: heparin sc (4) Confusion Comment: due to a combination of severe sepsis and HTN resolved mental status back to baseline (5) Aortic dissection Comment: on current medical tx. denies abd pain Status and Disposition: inpatient, plan to d/c in AM
[2016-08-30] MEDS: DOXYcycline CAP(*) 100 MG PO SCH (20:34)
[2016-08-31] MEDS: Heparin VIAL(*) 5000 UNITS/ML VIAL (FIVE THOUSAND) SUBCUT SCH (05:28)
[2016-08-31 05:40] LABS: Hematocrit 26 % (35-47); Hemoglobin 8.8 g/dl (12.0-16.0); Mean Corpuscular HGB Conc 34 g/dl (31-36); Mean Corpuscular Hemoglobin 26 pg (27-31); Mean Corpuscular Volume 77 fL (80-97); Mean Platelet Volume 8 um3 (7.4-10.4); Red Blood Count 3.33 10^6/ul (4.0-5.4); Red Cell Distribution Width 16 % (10.5-15); White Blood Count 6.5 10^3/ul (3.5-10.8)
[2016-08-31 05:55] LABS: BUN/Creatinine Ratio 11.4 (8-20); Calcium 8.6 mg/dL (8.6-10.3); EGFR African American 66.8 (>60)
[2016-08-31] MEDS ORDERED: Potassium Chlor TAB* 20 MEQ TAB.ER PO ONE (08:41)
[2016-08-31] MEDS ORDERED: amLODIPine TAB* 5 MG PO SCH (08:41)
[2016-08-31 08:55] VITALS: BP 164/85
[2016-08-31] MEDS: guaiFENesin LIQ* 100 MG/5 ML UDC PO SCH (09:26)
[2016-08-31] MEDS: DOXYcycline CAP(*) 100 MG PO SCH (09:27)
[2016-08-31] MEDS: Labetalol TAB* 100 MG ONE ×2 (09:28→09:30)
[2016-08-31] MEDS: Labetalol TAB* 200 MG PO SCH (10:17)
--- NOTE | 2016-09-01 02:31 | DS ---
DISCHARGE SUMMARY:* DATE OF ADMISSION: 08/27/16 DATE OF DISCHARGE: 08/31/16 ADDENDUM: Please also note that the patient had acute kidney injury on presentation to our facility and that resolved by the time of discharge. The patient's creatinine at admission was 1.51 and went back to 1.05 at discharge. The patient does have a history of chronic kidney disease, stage 2 to 3. The discharge summary was originally dictated on the same day, which is . [id number]/[facility] #: [id number] [facility] HOSPITALRachid
--- NOTE | 2016-09-01 03:12 | DS ---
DISCHARGE SUMMARY: DATE OF ADMISSION: 08/27/16 DATE OF DISCHARGE: 08/31/16 PRIMARY CARE PROVIDER: Erik Flores MD DISCHARGE DIAGNOSES: 1. Severe sepsis, most likely due to acute bronchitis. 2. Altered mental status and encephalopathy due to condition of sepsis and hypotensive emergency that did resolve. SECONDARY DIAGNOSES: 1. History of hypertension. 2. History of pulmonary embolism. 3. History of aortic dissection, type B. 4. History of gastroesophageal reflux disease. MEDICATIONS AT DISCHARGE: Include: 1. Labetalol 200 mg b.i.d. 2. Norvasc 10 mg daily. 3. Doxycycline 100 p.o. b.i.d. for 5 days total. 4. Guaifenesin 10 mL syrup up to 4 times a day for cough. LABORATORY DATA AND STUDIES PERFORMED DURING THE HOSPITAL STAY: Included: On , sodium of 134, potassium 3.0, chloride 105, carbon dioxide 26, BUN 12, and creatinine 1.05. CBC: White blood cell count of 6.5, hemoglobin of 8.8, hematocrit of 26, and platelets of 386. Urinalysis was unremarkable at admission apart from trace blood and 1 to 3 rbcs. Toxicology at admission was positive for cannabinoids. Brain CT obtained on 08/27/16. Impression: "No acute intracranial pathology. Mild sinus mucosal inflammatory disease with an air-fluid level in the left maxillary sinus. In the correct clinical setting, this may represent acute sinusitis." Aortic ultrasound obtained on 08/27/16. Impression: "No evidence of abdominal aortic aneurysm is noted. Chronic aortic dissection. No evidence of extraluminal hematoma is noted." Portable chest x-ray at admission. Impression: "Cardiomegaly with no active cardiopulmonary disease." HOSPITALIZATION COURSE: Holli Johnston is a 71-year-old female with history of uncontrolled hypertension in the past and chronic type B thoracic aortic dissection, who presented to the hospital with many nonspecific symptoms and altered mental status. The patient was noted to have fever for approximately 3 days and cough. The patient also had some history of gastroenteritis in the recent past. She was placed on broad-spectrum antibiotics. She was also noted to have systolic blood pressures of over 200 range. She was admitted to the intensive care unit and aggressively treated for her hypertension. Once her high blood pressure normalized, her mental status improved dramatically. By the time of discharge, she was back to normal and ambulating without support. The patient required an addition of Norvasc to her normal daily labetalol dose to control her hypertension. Nevertheless, we could not find any definite infection present apart from bronchitis and possibility of maxillary sinusitis noted on brain CT. The patient's blood cultures were unremarkable and the patient's leukocytosis normalized while she was taking antibiotics. She was switched to p.o. doxycycline on 08/29/16 with good results and continued treatment with good results. She still continued to have mild cough. At this point, the presumption is that the patient developed acute sinusitis and acute bronchitis and developed sepsis through that. The encephalopathy was most likely due to a combination of sepsis and hypertensive emergency. At discharge, the patient is recommended to follow up with her primary care provider in approximately 4 to 7 days. She was signed up for visiting nurse's visits. PHYSICAL EXAMINATION AT THE TIME OF DISCHARGE: Vital Signs: Blood pressure 164 /85 that is prior to the increase of her amlodipine, it was increased from 5 to 10 mg today, heart rate of 80 and regular, respiratory rate 18, oxygen saturation 98% on room air, and temperature 98.4. General: The patient is a very pleasant 71-year- old female who is in no acute distress. Alert, awake, and oriented x3. HEENT: Head atraumatic and normocephalic. Eyes: Pupils are equal, round, and reactive to light and accommodation. Oropharynx clear. Mucosa moist. Neck: Supple. No JVD. No bruits bilaterally. Cardiovascular: Regular, rate, and rhythm. No murmur. Respiratory: Clear to auscultation bilaterally. Abdomen: Soft, nontender. Bowel sounds present in all 4 quadrants. Extremities: There is no edema. Pulses present 2+ bilaterally. No clubbing or cyanosis. Neuro Evaluation: Speech clear. Cranial nerves II through XII grossly intact. Motor strength is 5/5 bilaterally. Please note this is a short summary of the patient's hospital stay. Please refer to further medical records for details. TIME SPENT: Approximately 40 minutes was spent on the patient's discharge. ADDENDUM: Please also note that the patient had acute kidney injury on presentation to our facility and that resolved by the time of discharge. The patient's creatinine at admission was 1.51 and went back to 1.05 at discharge. The patient does have a history of chronic kidney disease, stage 2 to 3. The discharge summary was originally dictated on the same day, which is . CC: Dr. Flores * [id number]/[facility] #: [id number] [id number]/[facility] #: [id number] [facility]
== END 2016-08-31 12:20 | disposition home or self-care (01) | DRG 871 ==
LOC: ED 08:21 → ICU 14:43 → MED 08-28 16:19
PROVIDERS: ADMIT Hospitalist; ATTEND Internal Medicine
DX: A41.9 Sepsis, unspecified organism (principal); G93.41 Metabolic encephalopathy; I71.00 Dissection of unspecified site of aorta; N17.9 Acute kidney failure, unspecified; J44.1 Chronic obstructive pulmonary disease with (acute) exacerbation; J44.0 Chronic obstructive pulmonary disease with (acute) lower respiratory infection; I16.1 Hypertensive emergency; J20.9 Acute bronchitis, unspecified; R65.20 Severe sepsis without septic shock; J01.00 Acute maxillary sinusitis, unspecified; I10 Essential (primary) hypertension; K21.9 Gastro-esophageal reflux disease without esophagitis; Z79.899 Other long term (current) drug therapy; Z88.1 Allergy status to other antibiotic agents; Z86.711 Personal history of pulmonary embolism; Z87.891 Personal history of nicotine dependence
CPT/HCPCS: 36415; 70450; 71010; 76775; 80048; 80053; 80202; 80307; 81003; 81015; 82550; 83605; 83735; 83880; 84436; 84443; 84484; 85025; 86140; 87040; 93005; 94760; 95810; A9270-GY; J0692; J0780; J1644; J2185; J2405; J3370

== ENCOUNTER 2016-11-26 09:56 | Emergency (ER) | payer MEDICARE, MEDICAID ==
[2016-11-26] MEDS ORDERED: NS 0.9% 1000 ML* 2,000 ML IV ONE (10:22)
[2016-11-26 10:47] LABS: Hematocrit 29 % (35-47); Hemoglobin 9.9 g/dl (12.0-16.0); Mean Corpuscular HGB Conc 34 g/dl (31-36); Mean Corpuscular Hemoglobin 26 pg (27-31); Mean Corpuscular Volume 77 fL (80-97); Mean Platelet Volume 8 um3 (7.4-10.4); Red Blood Count 3.77 10^6/ul (4.0-5.4); Red Cell Distribution Width 15 % (10.5-15)
[2016-11-26 10:59] LABS: ALT 17 U/L (7-52); AST 31 U/L (13-39); Albumin 3.2 g/dL (3.2-5.2); Alkaline Phosphatase 61 U/L (34-104); Anion Gap 4 mmol/L (2-11); BUN/Creatinine Ratio 13.8 (8-20); Blood Urea Nitrogen 23 mg/dL (6-24); CO2 Carbon Dioxide 26 mmol/L (22-32); Calcium 9.4 mg/dL (8.6-10.3); Chloride 100 mmol/L (101-111); Creatine Kinase 121 U/L (10-223); EGFR African American 39.1 (>60); EGFR Non-African American 30.4 (>60); Globulin 6.3 g/dL (2-4); Glucose 138 mg/dL (70-100); Magnesium 2.3 mg/dL (1.9-2.7); Potassium 3.8 mmol/L (3.5-5.0); Sodium 130 mmol/L (133-145); Total Protein 9.5 g/dL (6.4-8.9)
--- NOTE | 2016-11-26 10:59 | RAD ---
HISTORY: Seizure, pneumonia, CHF COMPARISONS: August 27, 2016 VIEWS: 2: Frontal and lateral views of the chest. FINDINGS: CARDIOMEDIASTINAL SILHOUETTE: The cardiac silhouette is mildly enlarged. The cardiomediastinal silhouette is otherwise normal. MARY: The mary are normal. PLEURA: The costophrenic angles are sharp. No pleural abnormalities are noted. LUNG PARENCHYMA: There is hyperinflation with flattening of the diaphragm and expansion of the AP diameter of the chest. ABDOMEN: The upper abdomen is clear. There is no subphrenic gas. BONES AND SOFT TISSUES: No bone or soft tissue abnormalities are noted. OTHER: None. IMPRESSION: CARDIOMEGALY. COPD.
[2016-11-26 11:06] LABS: Alcohol < 10 mg/dL (<10)
--- NOTE | 2016-11-26 11:20 | RAD ---
INDICATION: Seizure, bleed. COMPARISON: Comparison is made with a prior CT of the brain from August 27, 2016. TECHNIQUE: Contiguous axial sections of the brain were obtained from the skull base to the vertex without contrast. FINDINGS: The ventricles, cisterns and sulci are enlarged consistent with age-related atrophy. There are small areas of decreased density in the subcortical and periventricular white matter suggestive of mild chronic small vessel ischemic changes. There are calcifications within the lentiform nuclei. No other focal abnormality or mass effect is seen. There is no evidence for hemorrhage. No significant focal osseous abnormality is seen. The visualized portion of the paranasal sinuses and mastoid air cells appear clear. IMPRESSION: NO EVIDENCE FOR ACUTE INTRACRANIAL ABNORMALITY.
[2016-11-26 13:04] VITALS: BP 155/105
--- NOTE | 2016-11-26 18:23 | ED ---
Jonathan Estrada Angela, scribed for Dewey Andrade MD on 11/26/16 at 1024 . Neurological HPI - HPI Summary HPI Summary: This pt is a 71 y/o female [place] presenting to [facility] [place]/p [place] today. Pt reports she was on her way to [place] for an eye exam when she stopped at [employer] to have something to eat. Pt remembers waking up but can't recall what happened during her seizure. She denies headache, urinary symptoms, fever, chills, chest pain, SOB, abd pain, visual changes, weakness and numbness in LE or UE. Pt notes never having seizures before. Per EMS, pt experienced 2 grand mal seizures and had a glucose level of 153. 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 She denies tobacco or alcohol use today. Hx of ETOH abuse, EMS stated patient admitted to smoking two joints this morning.Pt is not anticoagulated. Pt had bowel preparation yesterday and today she was supposed to have a colonoscopy. - History of Current Complaint Chief Complaint: EDSeizure Stated Complaint: POSS SEIZURE Hx Obtained From: Patient Onset/Duration: Sudden Onset Current Severity: None Number of Seizures: 2 Pain Intensity: 0 Character: Confusion - Additional Pertinent History Primary Care Physician: [id number] - Allergy/Home Medications Allergies/Adverse Reactions: Allergies Allergy/AdvReac Type Severity Reaction Status Date / Time Amoxicillin Allergy Intermediate Itching Verified 11/07/16 11:20 Home Medications: Home Medications Triamterene/HCTZ 37.5-25 MG* [Dyazide CAP*] 1 cap PO EVERY OTHER DAY 11/26/16 [ History Confirmed 11/26/16] PMH/Surg Hx/FS Hx/Imm Hx Endocrine/Hematology History: Denies: Hx Diabetes Cardiovascular History: Reports: Hx Aneurysm - Ascending Aortic Aneurysm, Hx Embolism - PE, Hx Hypertension Denies: Hx Cardiac Arrest Respiratory History: Reports: Hx Pulmonary Embolism GI History: Reports: Hx Gastroesophageal Reflux Disease Denies: Other GI Disorders History: Denies: Hx Renal Disease Musculoskeletal History: Denies: Hx Arthritis, Hx Osteoporosis Sensory History: Reports: Hx Contacts or Glasses Denies: Hx Hearing Aid Opthamlomology History: Reports: Hx Contacts or Glasses - Cancer History Hx Chemotherapy: No Hx Radiation Therapy: No - Surgical History Surgery Procedure, Year, and Place: right leg fx repair 1987, bunion repair 2014 Hx Anesthesia Reactions: No Infectious Disease History: No Infectious Disease History: Reports: Hx of Known/Suspected MRSA - PREVIOUS HX IN WOUND Denies: Traveled Outside the [place] in Last 30 Days - Family History Family History: No family history of breast cancer, malignant hyperthermia, or anesthesia reaction. - Social History Alcohol Use: None Substance Use Type: Reports: None Smoking Status (MU): Former Smoker Type: Cigarettes Amount Used/How Often: 5-6/DAY Length of Time of Smoking/Using Tobacco: 46 years Have You Smoked in the Last Year: No Review of Systems Negative: Fever, Chills Eyes: Negative Negative: Blurred Vision ENT: Negative Negative: Chest Pain Negative: Shortness Of Breath Negative: Abdominal Pain, Vomiting Negative: burning, dysuria, frequency, hematuria, urgency Negative: Decreased ROM, Edema Negative: Rash, Bruising Negative: Headache All Other Systems Reviewed And Are Negative: Yes Physical Exam - Summary Physical Exam Summary: The patient is well-nourished in no acute distress and in no acute pain. The skin is warm and dry and skin color reflects adequate perfusion. HEENT: The head is normocephalic and atraumatic. The pupils are equal and reactive. Extra ocular movements are intact. The conjunctivae are clear and without drainage. Nares are patent and without drainage. Mouth reveals moist mucous membranes and the throat is without erythema and exudate. Tongue is midline. The external ears are intact. The ear canals are patent and without drainage. The tympanic membranes are intact. There is no facial droop. There is no Raccoon eyes and no Bucio's sign. Neck is supple with full range of motion and non-tender. There are no carotid bruits. There is no neck vein distension. Respiratory: Chest is non-tender. Lungs are clear to auscultation and breath sounds are symmetrical and equal. Cardiovascular: Hear is regular rate and rhythm. There is no murmur or rub auscultated. Abdomen: The abdomen is soft and non-tender. There are normal bowel sounds heard in all four quadrants and there is no organomegaly palpated. Musculoskeletal: There is no back pain noted. Extremities are non-tender with full range of motion. There is good capillary refill. There is no peripheral edema or calf tenderness elicited. There are good pulses distally. Neurological: Patient is alert and oriented to person, place and time. The patient has symmetrical motor strength in all four extremities. Cranial nerves are grossly intact. There is good motor strength. Psychiatric: The patient has an appropriate affect and does not exhibit any anxiety or depression. Triage Information Reviewed: Yes Vital Signs On Initial Exam: Initial Vitals Temp Pulse Resp BP Pulse Ox 97.9 F 82 18 86/59 96 11/26/16 10:05 11/26/16 10:05 11/26/16 10:05 11/26/16 10:05 11/26/16 10:05 Vital Signs Reviewed: Yes Diagnostics - Vital Signs Vital Signs Temp Pulse Resp BP Pulse Ox 11/26/16 10:05 97.1 F 86 20 86/59 96 - Laboratory Lab Results: Lab Results 11/26/16 11/26/16 11/26/16 Range/Units 10:18 10:18 10:18 WBC 5.0 (3.5-10.8) 10^3/ul RBC 3.77 L (4.0-5.4) 10^6/ul Hgb 9.9 L (12.0-16.0) g/dl Hct 29 L (35-47) % MCV 77 L (80-97) fL MCH 26 L (27-31) pg MCHC 34 (31-36) g/dl RDW 15 (10.5-15) % Plt Count 237 (150-450) 10^3/ul MPV 8 (7.4-10.4) um3 Neut % (Auto) 65.3 (38-83) % Lymph % (Auto) 24.6 L (25-47) % Giles % (Auto) 7.1 (1-9) % Eos % (Auto) 2.3 (0-6) % Baso % (Auto) 0.7 (0-2) % Absolute Neuts (auto) 3.2 (1.5-7.7) 10^3/ul Absolute Lymphs (auto) 1.2 (1.0-4.8) 10^3/ul Absolute Monos (auto) 0.3 (0-0.8) 10^3/ul Absolute Eos (auto) 0.1 (0-0.6) 10^3/ul Absolute Basos (auto) 0 (0-0.2) 10^3/ul Absolute Nucleated RBC 0.01 10^3/ul Nucleated RBC % 0.1 INR (Anticoag Therapy) 1.05 (0.89-1.11) Sodium 130 L (133-145) mmol/L Potassium 3.8 (3.5-5.0) mmol/L Chloride 100 L (101-111) mmol/L Carbon Dioxide 26 (22-32) mmol/L Anion Gap 4 (2-11) mmol/L BUN 23 (6-24) mg/dL Creatinine 1.67 H (0.51-0.95) mg/dL Est GFR ( Amer) 39.1 (>60) Est GFR (Non-Af Amer) 30.4 (>60) BUN/Creatinine Ratio 13.8 (8-20) Glucose 138 H (70-100) mg/dL Lactic Acid (0.5-2.0) mmol/L Calcium 9.4 (8.6-10.3) mg/dL Magnesium 2.3 (1.9-2.7) mg/dL Total Bilirubin 0.30 (0.2-1.0) mg/dL AST 31 (13-39) U/L ALT 17 (7-52) U/L Alkaline Phosphatase 61 (34-104) U/L Total Creatine Kinase 121 (10-223) U/L Troponin I 0.00 (<0.04) ng/mL Total Protein 9.5 H (6.4-8.9) g/dL Albumin 3.2 (3.2-5.2) g/dL Globulin 6.3 H (2-4) g/dL Albumin/Globulin Ratio 0.5 L (1-3) TSH 2.40 (0.34-5.60) mcIU/mL Serum Alcohol < 10 (<10) mg/dL 11/26/16 Range/Units 10:18 WBC (3.5-10.8) 10^3/ul RBC (4.0-5.4) 10^6/ul Hgb (12.0-16.0) g/dl Hct (35-47) % MCV (80-97) fL MCH (27-31) pg MCHC (31-36) g/dl RDW (10.5-15) % Plt Count (150-450) 10^3/ul MPV (7.4-10.4) um3 Neut % (Auto) (38-83) % Lymph % (Auto) (25-47) % Giles % (Auto) (1-9) % Eos % (Auto) (0-6) % Baso % (Auto) (0-2) % Absolute Neuts (auto) (1.5-7.7) 10^3/ul Absolute Lymphs (auto) (1.0-4.8) 10^3/ul Absolute Monos (auto) (0-0.8) 10^3/ul Absolute Eos (auto) (0-0.6) 10^3/ul Absolute Basos (auto) (0-0.2) 10^3/ul Absolute Nucleated RBC 10^3/ul Nucleated RBC % INR (Anticoag Therapy) (0.89-1.11) Sodium (133-145) mmol/L Potassium (3.5-5.0) mmol/L Chloride (101-111) mmol/L Carbon Dioxide (22-32) mmol/L Anion Gap (2-11) mmol/L BUN (6-24) mg/dL Creatinine (0.51-0.95) mg/dL Est GFR ( Amer) (>60) Est GFR (Non-Af Amer) (>60) BUN/Creatinine Ratio (8-20) Glucose (70-100) mg/dL Lactic Acid 1.5 (0.5-2.0) mmol/L Calcium (8.6-10.3) mg/dL Magnesium (1.9-2.7) mg/dL Total Bilirubin (0.2-1.0) mg/dL AST (13-39) U/L ALT (7-52) U/L Alkaline Phosphatase (34-104) U/L Total Creatine Kinase (10-223) U/L Troponin I (<0.04) ng/mL Total Protein (6.4-8.9) g/dL Albumin (3.2-5.2) g/dL Globulin (2-4) g/dL Albumin/Globulin Ratio (1-3) TSH (0.34-5.60) mcIU/mL Serum Alcohol (<10) mg/dL Result Diagrams: 11/26/16 10:18 11/26/16 10:18 Lab Statement: Any lab studies that have been ordered have been reviewed, and results considered in the medical decision making process. - Radiology Chest XR Xray Interpretation: Positive (See Comments) - IMPRESSION: Cardiomegaly. COPD. ED physician has reviewed this radiology report and agrees. Radiology Interpretation Completed By: Radiologist - CT CT Brain CT Interpretation: No Acute Changes - IMPRESSION: No evidence for acute intracranial abnormality. ED physician has reviewed this radiology report and agrees. CT Interpretation Completed By: Radiologist - EKG 10:50 Cardiac Rate: NL - 76 bpm EKG Rhythm: Sinus Rhythm ST Segment: Non-Specific EKG Interpretation: LVH with IVCD EKG Comparison: No Significant Change - to an EKG from 02/04/15 NIH Scale - NIH Scale Level of Consciousness: Alert/Keenly Responsive Ask Patient the Month and His/Her Age: Both Correct Ask Pt to Open/Close Eyes and Precision Lens Generator/Release Non-Paretic Hand: Both Correctly Best Gaze (Only Horizontal Eye Movement): Normal Visual Field Testing: No Visual Loss Facial Paresis-Pt to Smile & Close Eyes or Grimace Symmetry: Normal/Symmetrical Motor Function - Right Arm: No Drift-Holds 10 Seconds Motor Function - Left Arm: No Drift-Holds 10 Seconds Motor Function - Right Leg: No Drift-Holds 10 Seconds Motor Function - Left Leg: No Drift-Holds 10 Seconds Limb Ataxia-Must be out of Proportion to Weakness Present: Absent Sensory (Use Pinprick to Test Arms/Legs/Trunk/Face): Normal Best Language (Describe Picture, Name Items): No Aphasia Dysarthria (Read Several Words): Normal Extinction and Inattention: No Abnormality Total Score: 0 Re-Evaluation - Re-Evaluation First Eval Re-Evaluation Time: 13:06 Comment: Pt was offered admission but she declined. Course/Dx - Course Course Of Treatment: This pt is a 71 y/o female presenting to [facility] via EMS after two reported grand mal seizures. Pt denies any headache, abd pain, chest pain, dizziness. In the ED course pt was given IV fluids and labs were ordered. Pt declined admission, so pt will be discharged and is advised to follow up with her PCP. - Differential Dx Differential Diagnoses Neuro: Positive: Cerebrovascular Accident, Coronary Artery Disease, Hypovolemia, Seizure Disorder, Vasovagal Reaction, Other - dehydration, - Diagnoses Provider Diagnoses: Syncope Discharge - Discharge Plan Condition: Stable Disposition: HOME Patient Education Materials: Syncope (ED) Referrals: Erik Flores MD [Primary Care Provider] - Additional Instructions: Please follow up with your primary care provider, Dr. Flores. The documentation as recorded by the Jonathan francois Angela accurately reflects the service I personally performed and the decisions made by me, Dewey Andrade MD.
== END 2016-11-26 13:32 | disposition home or self-care (01) ==
LOC: ED 09:56
DX: R55 Syncope and collapse (principal); I51.7 Cardiomegaly; J44.9 Chronic obstructive pulmonary disease, unspecified
CPT/HCPCS: 36415; 70450; 71020; 80053; 80320; 82550; 83605; 83735; 84443; 84484; 85025; 85610; 93005; 99283; G0480

== ENCOUNTER 2016-12-31 07:31 | Day surgery (SDC) | payer MEDICARE, MEDICAID ==
[~2016-12-31 07:31] MED LIST: Buffered Lidocaine 0.9% SYRIN* 5 ML/SYR SYRINGE INTRADERM ONE; Vancomycin(*) 1,000 MG in NS 0.9% 250 ML* 250 ML IVPB ONE
[2016-12-31] MEDS ORDERED: Buffered Lidocaine 0.9% SYRIN* 5 ML/SYR SYRINGE ONE (07:42)
[2016-12-31] MEDS ORDERED: Lidocaine 1% MPF wEPI 200,000* 30 ML SDV ONE (09:22)
[2016-12-31] MEDS ORDERED: Midazolam* 1 MG/ML 2 ML VIAL (2 MG) ONE (09:47)
[2016-12-31] MEDS ORDERED: fentaNYL* 50 MCG/ML 2 ML VIAL (100 MCG VIAL) ONE (09:47)
[2016-12-31] MEDS ORDERED: Propofol* 10 MG/ML 20 ML BTL IV PUSH ONE (09:48)
[2016-12-31] MEDS ORDERED: Labetalol TAB* 200 MG PO ONE (10:00)
--- NOTE | 2016-12-31 10:45 | SURGPN ---
Brief Operative Note - Surgery Procedures: Procedures Pre-OP Diagnoses: Metastatic adenocarcinoma Post-op Diagnosis: same Procedure: Insertion of powerport Surgeon: Nancy Asst: none Anethesia: local, MAC EBL: minimal IVF: minimal Specimen: none Drains: none 8Fr single lumen power port via R SCV
[2016-12-31 11:03] VITALS: BP 157/91
--- NOTE | 2016-12-31 11:30 | RAD ---
INDICATION: Power port insertion. COMPARISON: There are no prior studies available for comparison. TECHNIQUE: 10 seconds of intermittent fluoroscopic guidance were any signal spot film of the chest centered on the right side was obtained in the operating room. FINDINGS: The films demonstrate a power port central venous catheter entering on the right side. The catheter tip projects over the region of the right atrium. IMPRESSION: INTRAOPERATIVE CONTROL FILMS. CPT II Codes: 6045F
--- NOTE | 2017-01-15 04:30 | OP ---
CC: Dr. Neymar Cho * DATE OF OPERATION: 12/31/16 - [facility] DATE OF : 49 SURGEON: Ben Cruz MD EXCAVATION LABORER: None. ANESTHESIOLOGIST: Jaswant Bergman MD ANESTHESIA: Local MAC anesthesia. PRE-OP DIAGNOSIS: Metastatic adenocarcinoma. POST-OP DIAGNOSIS: Metastatic adenocarcinoma. OPERATIVE PROCEDURE: Insertion of PowerPort. ESTIMATED BLOOD LOSS: Minimal blood loss. FLUIDS: Minimal crystalloid fluid given. DRAINS: An 8-[place] Lucian single-lumen PowerPort inserted via the right subclavian vein. DESCRIPTION OF PROCEDURE: The patient was identified in the preoperative area, marked, brought to the OR, placed on the operating table in supine position. Preoperative antibiotics were given. Sequential devices were placed in bilateral lower extremities. The patient's right upper chest and neck were prepped and draped in the standard surgical fashion, a time-out was performed. The right subclavian vein was accessed and a wire inserted into the superior vena cava under fluoroscopy, incision was made inferior to this and the wire was brought out through this incision site, a pocket was made. Next, the right subclavian vein was dilated under fluoroscopy. A split-away catheter was inserted and then 8-St Lucian tubing was inserted through this. This was cut to size and attached to the pre-flushed PowerPort. It was attached to the PowerPort along with a hub and sutured into the pocket at the medial aspect and lateral aspect and at the hub. The wound was irrigated and reapproximated. Steri-Strips were placed. The patient tolerated the procedure well and was transferred to the PACU in stable condition. [id number]/[facility] #: [id number] [facility]
== END 2016-12-31 11:41 | disposition home or self-care (01) ==
LOC: OR 07:31
PROVIDERS: ATTEND Surgery
DX: C78.5 Secondary malignant neoplasm of large intestine and rectum (principal); I12.9 Hypertensive chronic kidney disease with stage 1 through stage 4 chronic kidney disease, or unspecified chronic kidney disease; N18.9 Chronic kidney disease, unspecified; I35.1 Nonrheumatic aortic (valve) insufficiency; I73.9 Peripheral vascular disease, unspecified; I65.29 Occlusion and stenosis of unspecified carotid artery; C78.7 Secondary malignant neoplasm of liver and intrahepatic bile duct; D64.9 Anemia, unspecified; Z51.11 Encounter for antineoplastic chemotherapy; Z87.891 Personal history of nicotine dependence; Z88.1 Allergy status to other antibiotic agents; C18.9 Malignant neoplasm of colon, unspecified
CPT/HCPCS: 71010; 96367; 96413; 96415; 96416; 96417; A9270-GY; C1788; J0640; J1100; J1642; J2001; J2250; J2469; J2704; J3010; J3370; J9035; J9190; J9263

== ENCOUNTER 2017-02-20 16:30 | Emergency (ER) | payer MEDICARE ==
[2017-02-20] MEDS ORDERED: NS 0.9% 1000 ML* 1,000 ML IV SCH (19:15)
[2017-02-20 19:55] LABS: Hematocrit 27 % (35-47); Hemoglobin 9.3 g/dl (12.0-16.0); Mean Corpuscular HGB Conc 34 g/dl (31-36); Mean Corpuscular Hemoglobin 27 pg (27-31); Mean Corpuscular Volume 78 fL (80-97); Mean Platelet Volume 8 um3 (7.4-10.4); Red Blood Count 3.51 10^6/ul (4.0-5.4); Red Cell Distribution Width 18 % (10.5-15); White Blood Count 4.4 10^3/ul (3.5-10.8)
[2017-02-20 20:06] LABS: Albumin 3.1 g/dL (3.2-5.2); BUN/Creatinine Ratio 15.6 (8-20); Calcium 9.5 mg/dL (8.6-10.3); EGFR African American 36.1 (>60); EGFR Non-African American 28.1 (>60); Globulin 6.1 g/dL (2-4); Potassium 4.2 mmol/L (3.5-5.0); Total Bilirubin 0.4 mg/dL (0.2-1.0); Total Protein 9.2 g/dL (6.4-8.9)
[2017-02-20] MEDS ORDERED: NS 0.9% 1000 ML* 1,000 ML IV ONE (20:14)
[2017-02-20 21:08] LABS: Urine Bacteria Absent (Absent); Urine Bilirubin Negative (Negative); Urine Glucose Negative (Negative); Urine Nitrite Negative (Negative)
[2017-02-20 23:52] VITALS: BP 164/87
--- NOTE | 2017-03-08 21:09 | ED ---
Ernestina Estrada SooYoung, scribed for Ara Gutiérrez MD on 02/20/17 at 1843 . Neurological HPI - HPI Summary HPI Summary: A 71 y/o F [place] presents to ED with c/o sudden onset weakness this afternoon at approx 1430 while shopping. Associated sx: "felt flushed," pale, dizziness since resolved. Denies diaphoresis, syncope. Pt has a secondary c/o intermittent R-sided low back pain onset two weeks ago after her last round of chemo. Pt takes Tylenol for the pain. She has chemo again in four days. Pert PMHx: CA, aortic dissection. She did take her BP and nausea medications today. She last saw her vascular surgeon approx 6 months ago. - History of Current Complaint Chief Complaint: EDWeakness Stated Complaint: GENERAL ILLNESS Time Seen by Provider: 02/20/17 18:41 Hx Obtained From: Patient Onset/Duration: Sudden Onset Onset Severity: Moderate Current Severity: Mild Pain Intensity: 0 Pain Scale Used: 0-10 Numeric Character: Weak, Dizzy Associated Signs and Symptoms: Positive: Dizziness. Negative: Loss of Consciousness, Diaphoresis - Additional Pertinent History Primary Care Physician: ANDRE - Allergy/Home Medications Allergies/Adverse Reactions: Allergies Allergy/AdvReac Type Severity Reaction Status Date / Time Amoxicillin Allergy Intermediate Itching Verified 12/31/16 07:51 PMH/Surg Hx/FS Hx/Imm Hx Previously Healthy: No Endocrine/Hematology History: Reports: Hx Anemia Denies: Hx Bone Marrow Disease, Hx Diabetes, Hx Sickle Cell Disease Cardiovascular History: Reports: Hx Aneurysm - Ascending Aortic Aneurysm, Hx Coronary Artery Disease - CAROTID DISEASE, Hx Embolism - PE, Hx Hypertension, Hx Peripheral Vascular Disease, Other Cardiovascular Problems/Disorders - DX THORACIC AORTIC ANEURYSM, DYSLIPIDEMIA Denies: Hx Cardiac Arrest Respiratory History: Reports: Hx Pulmonary Embolism - 12/2014, Other Respiratory Problems/Disorders - FREQUENT SOB GI History: Reports: Hx Gastroesophageal Reflux Disease, Other GI Disorders - DX 12/14 MALIGNANT NEOPLASM OF ASCENDING COLON History: Denies: Hx Renal Disease Musculoskeletal History: Reports: Other Musculoskeletal History - 1987 FX RIGHT ANKLE, LEFT BUNIONECTOMY 11/2014 Denies: Hx Arthritis, Hx Osteoporosis Sensory History: Reports: Hx Contacts or Glasses - GLASSES Denies: Hx Cataracts, Hx Glaucoma, Hx Hearing Aid Opthamlomology History: Reports: Hx Contacts or Glasses - GLASSES Denies: Hx Cataracts, Hx Glaucoma Neurological History: Reports: Hx Seizures - 10/2016 GRAND MAL SEIZURE PER ED NOTES, PT DENIES Denies: Other Neuro Impairments/Disorders Psychiatric History: Reports: Hx Anxiety - MILD - Cancer History Hx Chemotherapy: Yes - 01/10/17 STARTED CHEMOTHERAPY Hx Radiation Therapy: No - Surgical History Surgery Procedure, Year, and Place: ORIF FX RIGHT ANKLE- 1987[place] [facility] [place]- 11[place]2014[place] [facility] [place] Anesthesia Reactions: No Infectious Disease History: No Infectious Disease History: Reports: Hx Hepatitis - 2014 HEP C, TREATED, Hx of Known/Suspected MRSA - PREVIOUS HX IN WOUND Denies: Traveled Outside the [place] in Last 30 Days - Family History Family History: No family history of breast cancer, malignant hyperthermia, or anesthesia reaction. - Social History Occupation: Unemployed Lives: With Family Alcohol Use: None Alcohol Amount: Hx of heavy drinking Hx Substance Use: Yes Substance Use Comment - Amount & Last Used: NOT RECENT Hx Tobacco Use: Yes Smoking Status (MU): Former Smoker Type: Cigarettes Amount Used/How Often: 5-6/DAY 25 YRS Length of Time of Smoking/Using Tobacco: 25 YRS Have You Smoked in the Last Year: No Review of Systems Positive: Other - pos: felt flushed. Negative: Fever, Skin Diaphoresis Positive: Other - pos: R-sided low back pain Positive: Other - pos: pale Neurological: Other - pos: dizziness Positive: Weakness. Negative: Syncope All Other Systems Reviewed And Are Negative: Yes Physical Exam - Summary Physical Exam Summary: VITAL SIGNS: Reviewed. GENERAL: Patient is a well-developed and nourished FEMALE who is lying comfortable in the stretcher. Patient is not in any acute respiratory distress. HEAD AND FACE: No signs of trauma. No ecchymosis, hematomas or skull depressions. No sinus tenderness. EYES: PERRLA, EOMI x 2, no injected conjunctiva, no nystagmus. EARS: Hearing grossly intact. Ear canals and tympanic membranes are within normal limits. MOUTH: Oropharynx is within normal limits. NECK: Supple, trachea is midline, no adenopathy, no JVD, no carotid bruit, no c- spine tenderness, neck with full ROM. CHEST: Symmetric, no tenderness at palpation LUNGS: Clear to auscultation bilaterally. No wheezing or crackles. CVS: Regular rate and rhythm, S1 and S2 present, no murmurs or gallops appreciated. ABDOMEN: Soft, non-tender. No signs of distention. No rebound, no guarding, and no masses palpated. Bowel sounds are normal. EXTREMITIES: FROM in all major joints, no edema, no cyanosis, no clubbing. NEURO: Alert and oriented x 3. No acute neurological deficits. Speech is normal and follows commands. SKIN: Dry and warm Triage Information Reviewed: Yes Vital Signs On Initial Exam: Initial Vitals Temp Pulse Resp BP Pulse Ox 98.3 F 78 18 116/70 97 02/20/17 17:08 02/20/17 17:08 02/20/17 17:08 02/20/17 17:08 02/20/17 17:08 Vital Signs Reviewed: Yes - [place] Coma Scale Coma Scale Total: 15 Diagnostics - Vital Signs Vital Signs Temp Pulse Resp BP Pulse Ox 02/20/17 18:36 77 99 02/20/17 18:34 152/84 02/20/17 17:08 98.3 F 78 18 116/70 97 - Laboratory Result Diagrams: 02/20/17 19:40 02/20/17 19:40 Lab Statement: Any lab studies that have been ordered have been reviewed, and results considered in the medical decision making process. - EKG 1929 Cardiac Rate: NL EKG Rhythm: Sinus Rhythm - at 78bpm ST Segment: Non-Specific EKG Interpretation: LVH Re-Evaluation - Re-Evaluation 1 Re-Evaluation Time: 20:42 Change: Improved Comment: Pt states she is feeling, no longer dizzy. She is hungry. Will provide her something to eat and ambulation challenge her. 2 Re-Evaluation Time: 22:04 Change: Improved Comment: Pt ate and is feeling OK. Discussed with pt that her kidney function has been declining. Recommended she speak with her oncologist about this. Pt voiced understanding. 3 Re-Evaluation Time: 23:06 Comment: Speaking with pt's relative regarding the renal insufficiency and need to monitor. Relative voiced understanding. Course/Dx - Course Course Of Treatment: A 71 y/o F [place] presents to ED with c/o sudden onset weakness this afternoon at approx 1430. Associated sx: "felt flushed," pale, dizziness since resolved. Denies diaphoresis, syncope. Pt has a secondary c/o intermittent R-sided low back pain onset two weeks ago after her last round of chemo. Pt takes Tylenol for the pain. She has chemo again in four days. Pert PMHx: CA, aortic dissection. She did take her BP and nausea medications today. She last saw her vascular surgeon approx 6 months ago. Pt given fluids in ED. Will not perform CTA due to pt's poor kidney function. UA results show 2+ protein, 1+, squamous epithelia present, ascorbic acid present. Upon reeval, discussed with pt her declining kidney function. She feels OK, I believe sx are most likely due to dehydration. Recommend pt see her oncologist as scheduled and to discuss the possibility of a urology consult. Pt voiced understanding. - Diagnoses Provider Diagnoses: Dehydration, Weakness, Renal insufficiency Discharge - Discharge Plan Condition: Stable Disposition: HOME Patient Education Materials: Dehydration (ED), Chronic Kidney Disease (ED), Weakness (ED) Referrals: Erik Flores MD [Primary Care Provider] - Additional Instructions: See you oncologist as scheduled on Thursday. We recommend a urologist consult, discuss with your oncologist. Please return to the ED if you experience new or worsening symptoms. The documentation as recorded by the Ernestina francois SooYoung accurately reflects the service I personally performed and the decisions made by me, Ara Gutiérrez MD.
== END 2017-02-20 23:51 | disposition home or self-care (01) ==
LOC: ED 16:30
DX: E86.0 Dehydration (principal); R53.1 Weakness; N28.9 Disorder of kidney and ureter, unspecified; R42 Dizziness and giddiness; Z87.891 Personal history of nicotine dependence
CPT/HCPCS: 36415; 80053; 81003; 81015; 85025; 85610; 85730; 93005; 96360; 99282; J1642

== ENCOUNTER → 2017-02-27 11:02 | Emergency (ER) | payer MEDICARE ==
[~2017-02-27 11:02] MED LIST changes: -Buffered Lidocaine 0.9% SYRIN* 5 ML/SYR SYRINGE INTRADERM ONE; +HYDROmorphone INJ* 1 MG/ML CARPUJECT SYRINGE IV ONE; +NS 0.9% 1000 ML* 1,000 ML IV ONE; +Ondansetron INJ* 2 MG/ML VIAL IV ONE; -Vancomycin(*) 1,000 MG in NS 0.9% 250 ML* 250 ML IVPB ONE
--- NOTE | 2017-02-27 12:43 | RAD ---
INDICATION: Metastatic colon carcinoma. Back pain. COMPARISON: CT abdomen pelvis January 28, 2017 TECHNIQUE: Noncontrast axial source images was performed from the thoracolumbar junction to the sacrum. Coronal and and sagittal reformatted images were generated. FINDINGS: Vertebrae: There is new T12 compression fracture with cortical disruption along the superior and inferior cortical margins. There is a mild biconcave appearance as well and overall mild loss in vertical dimension of the vertebrae. There is no significant bony retropulsion. The findings are new since the January 28, 2017 examination. There are no additional acute bony findings. There is minor vertebral spurring at L4 and L5. There is moderate facet overgrowth at L4-L5 and L5-S1. These latter findings are unchanged. Alignment: The lumbar vertebrae are normally aligned. Central Canal: There are no significant CT abnormalities of the central canal or foramina. MR imaging is a more sensitive method to evaluate the canal and foramina. Intervertebral disc spaces: The disc spaces are maintained. Soft tissues: The paravertebral soft tissues are normal. Other: There are extensive liver metastasis included on the periphery of the window. There is aortic dissection. Both represent previously documented findings IMPRESSION: ACUTE COMPRESSION TYPE DEFORMITY OF T12 DESCRIBED. ADDITIONAL IMAGING FINDINGS HAVE BEEN DOCUMENTED PREVIOUSLY.
[2017-02-27 12:59] LABS: C Reactive Protein 5.03 mg/L (< 5.00); Calcium 9.3 mg/dL (8.6-10.3); EGFR African American 48.3 (>60); EGFR Non-African American 37.6 (>60); Globulin 5.5 g/dL (2-4); Potassium 3.7 mmol/L (3.5-5.0); Total Bilirubin 0.5 mg/dL (0.2-1.0); Total Protein 8.5 g/dL (6.4-8.9)
[2017-02-27 13:13] LABS: Hematocrit 28 % (35-47); Hemoglobin 9.6 g/dl (12.0-16.0); Mean Corpuscular HGB Conc 34 g/dl (31-36); Mean Corpuscular Hemoglobin 27 pg (27-31); Mean Corpuscular Volume 78 fL (80-97); Mean Platelet Volume 8 um3 (7.4-10.4); Red Cell Distribution Width 19 % (10.5-15)
[2017-02-27 13:21] LABS: Comments Flag Yes
[2017-02-27 13:22] LABS: White Blood Count 2.2 10^3/ul (3.5-10.8)
--- NOTE | 2017-02-27 13:24 | RAD ---
Indication: Hemoptysis. Single view of the chest demonstrates tortuous descending aorta. Lung peguero appear clear. No alveolar consolidation is noted. Port-A-Cath is in place. No changes noted since previous exam of January 28, 2017. IMPRESSION: No active disease is noted.
[2017-02-27 14:47] VITALS: BP 162/64
--- NOTE | 2017-02-27 16:45 | ED ---
Anton Estrada Gabriel, scribed for Zane Oliveros MD on 02/27/17 at 1206 . Respiratory - HPI Summary HPI Summary: This patient is a 71 year old F presenting to [facility] with a chief complaint of coughing up blood since earlier today. Patient reports constipation, chest congestion, epistaxis, and lower back pain. The patient rates the pain 7/10 in severity. Patient denies CP, edema, and fever. Patient was getting a CAT scan when she began to cough up blood, she was sent to the ED after. Patient states that coughing does not aggravate her lower back pain. She is currently undergoing chemo for colon cancer. - History of Current Complaint Chief Complaint: EDShortnessOfBreath Stated Complaint: COUGH UP BLOOD, SOB Time Seen by Provider: 02/27/17 11:39 Onset/Duration: Sudden Onset, Still Present Timing: Constant Pain Intensity: 7 Sputum Amount: Small Sputum Color: Red (Blood) Associated Signs and Symptoms: Negative - CP, edema, and fever - Allergy/Home Medications Allergies/Adverse Reactions: Allergies Allergy/AdvReac Type Severity Reaction Status Date / Time Amoxicillin Allergy Intermediate Itching Verified 12/31/16 07:51 Home Medications: Home Medications Cholecalciferol TAB* [Vitamin D TAB*] 400 unit PO DAILY 02/27/17 [History Confirmed 02/27/17] Cyanocobalamin TAB* [Vitamin B12 TAB*] 1,000 mcg PO DAILY 02/27/17 [History Confirmed 02/27/17] Ketorolac 0.5% OPHTH (NF) 1 drop OPHTHALMIC DAILY PRN 02/27/17 [History Confirmed 02/27/17] Multivitamins/Minerals TAB* [Theragran/minerals TAB*] 1 tab PO DAILY 02/27/17 [ History Confirmed 02/27/17] Ondansetron TAB* [Zofran 4 MG Tab*] 4 mg PO Q4HR PRN 02/27/17 [History Confirmed 02/27/17] Polyethylene Glycol 3350* [Miralax*] 17 gm PO DAILY PRN 02/27/17 [History Confirmed 02/27/17] Prochlorperazine TAB* [Compazine Tab*] 10 mg PO QID PRN 02/27/17 [History Confirmed 02/27/17] prednisoLONE 1% OPHTH.SUSP* [Pred Forte 1%*] 1 drop OPHTHALMIC BID 02/27/17 [ History Confirmed 02/27/17] traMADol TAB* [Ultram*] 50 mg PO Q6HR PRN 02/27/17 [History Confirmed 02/27/17] PMH/Surg Hx/FS Hx/Imm Hx Previously Healthy: No Endocrine/Hematology History: Reports: Hx Anemia Denies: Hx Bone Marrow Disease, Hx Diabetes, Hx Sickle Cell Disease Cardiovascular History: Reports: Hx Aneurysm - Ascending Aortic Aneurysm, Hx Coronary Artery Disease - CAROTID DISEASE, Hx Embolism - PE, Hx Hypertension, Hx Peripheral Vascular Disease, Other Cardiovascular Problems/Disorders - DX THORACIC AORTIC ANEURYSM, DYSLIPIDEMIA Denies: Hx Cardiac Arrest Respiratory History: Reports: Hx Pulmonary Embolism - 12/2014, Other Respiratory Problems/Disorders - FREQUENT SOB GI History: Reports: Hx Gastroesophageal Reflux Disease, Other GI Disorders - DX 12/14 MALIGNANT NEOPLASM OF ASCENDING COLON History: Denies: Hx Renal Disease Musculoskeletal History: Reports: Other Musculoskeletal History - 1987 FX RIGHT ANKLE, LEFT BUNIONECTOMY 11/2014 Denies: Hx Arthritis, Hx Osteoporosis Sensory History: Reports: Hx Contacts or Glasses - GLASSES Denies: Hx Cataracts, Hx Glaucoma, Hx Hearing Aid Opthamlomology History: Reports: Hx Contacts or Glasses - GLASSES Denies: Hx Cataracts, Hx Glaucoma Neurological History: Reports: 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 LEFT BUNIONECTOMY- 11/2014- [facility] – [place] Hx Anesthesia Reactions: No Infectious Disease History: No Infectious Disease History: Reports: Hx Hepatitis - 2014 HEP C, TREATED, Hx of Known/Suspected MRSA - PREVIOUS HX IN WOUND Denies: Traveled Outside the [place] in Last 30 Days - Family History Family History: No family history of breast cancer, malignant hyperthermia, or anesthesia reaction. - Social History Alcohol Use: None Alcohol Amount: Hx of heavy drinking Substance Use Type: Reports: None Substance Use Comment - Amount & Last Used: NOT RECENT Smoking Status (MU): Former Smoker Type: Cigarettes Amount Used/How Often: 5-6/DAY 25 YRS Length of Time of Smoking/Using Tobacco: 25 YRS Have You Smoked in the Last Year: No Review of Systems Negative: Fever Positive: Epistaxis Negative: Chest Pain Positive: Cough - with blood , Other - chest congestion Positive: Other - constipation Positive: Other - lower back pain . Negative: Edema All Other Systems Reviewed And Are Negative: Yes Physical Exam - Summary Physical Exam Summary: Appearance: The patient is well-nourished in no acute distress and in no acute pain. Skin: The skin is warm and dry and skin color reflects adequate perfusion. HEENT: ~The head is normocephalic and atraumatic. The pupils are equal and reactive. The conjunctivae are clear and without drainage. ~Nares are patent and without drainage. ~Mouth reveals moist mucous membranes and the throat is without erythema and exudate. ~The external ears are intact. The ear canals are patent and without drainage. The tympanic membranes are intact. Neck: the neck is supple with full range of motion and non-tender. There are no carotid bruits. ~There is no neck vein distension. Respiratory: Chest is non-tender. Crackles in lungs more on the right than left Cardiovascular: Heart is regular rate and rhythm. ~There is no murmur or rub auscultated. ~~There is no peripheral edema and pulses are symmetrical and equal. Abdomen: The abdomen is soft and non-tender. ~There are normal bowel sounds heard in all four quadrants and there is no organomegaly palpated. Musculoskeletal: Extremities are non-tender with full range of motion. ~There is good capillary refill. ~There is no peripheral edema or calf tenderness elicited. Tender in left para lumbar area Neurological: Patient is alert and oriented to person, place and time. ~The patient has symmetrical motor strength in all four extremities. ~Cranial nerves are grossly intact. Deep tendon reflexes are symmetrical and equal in all four extremities. Psychiatric: The patient has an appropriate affect and does not exhibit any anxiety or depression. Triage Information Reviewed: Yes Vital Signs On Initial Exam: Initial Vitals Temp Pulse Resp BP Pulse Ox 98.7 F 83 20 158/89 97 02/27/17 11:12 02/27/17 11:12 02/27/17 11:12 02/27/17 11:12 02/27/17 11:12 Vital Signs Reviewed: Yes - [place] Coma Scale Coma Scale Total: 15 Diagnostics - Vital Signs Vital Signs Temp Pulse Resp BP Pulse Ox 02/27/17 11:12 98.7 F 83 20 158/89 97 - Laboratory Lab Results: Lab Results 02/27/17 02/27/17 Range/Units 12:33 12:33 WBC 2.2 L (3.5-10.8) 10^3/ul RBC 3.60 L (4.0-5.4) 10^6/ul Hgb 9.6 L (12.0-16.0) g/dl Hct 28 L (35-47) % MCV 78 L (80-97) fL MCH 27 (27-31) pg MCHC 34 (31-36) g/dl RDW 19 H (10.5-15) % Plt Count 169 (150-450) 10^3/ul MPV 8 (7.4-10.4) um3 Neut % (Auto) 51.6 (38-83) % Lymph % (Auto) 38.6 (25-47) % [place] % (Auto) 6.1 (1-9) % Eos % (Auto) 2.9 (0-6) % Baso % (Auto) 0.8 (0-2) % Absolute Neuts (auto) 1.1 L (1.5-7.7) 10^3/ul Absolute Lymphs (auto) 0.8 L (1.0-4.8) 10^3/ul Absolute Monos (auto) 0.1 (0-0.8) 10^3/ul Absolute Eos (auto) 0.1 (0-0.6) 10^3/ul Absolute Basos (auto) 0 (0-0.2) 10^3/ul Absolute Nucleated RBC 0 10^3/ul Nucleated RBC % 0.1 Sodium 133 (133-145) mmol/L Potassium 3.7 (3.5-5.0) mmol/L Chloride 103 (101-111) mmol/L Carbon Dioxide 24 (22-32) mmol/L Anion Gap 6 (2-11) mmol/L BUN 32 H (6-24) mg/dL Creatinine 1.39 H (0.51-0.95) mg/dL Est GFR ( Amer) 48.3 (>60) Est GFR (Non-Af Amer) 37.6 (>60) BUN/Creatinine Ratio 23.0 H (8-20) Glucose 110 H (70-100) mg/dL Calcium 9.3 (8.6-10.3) mg/dL Total Bilirubin 0.50 (0.2-1.0) mg/dL AST 47 H (13-39) U/L ALT 27 (7-52) U/L Alkaline Phosphatase 135 H (34-104) U/L C-Reactive Protein 5.03 H (< 5.00) mg/L Total Protein 8.5 (6.4-8.9) g/dL Albumin 3.0 L (3.2-5.2) g/dL Globulin 5.5 H (2-4) g/dL Albumin/Globulin Ratio 0.5 L (1-3) Result Diagrams: 02/27/17 12:33 02/27/17 12:33 Lab Statement: Any lab studies that have been ordered have been reviewed, and results considered in the medical decision making process. - Radiology CXR Radiology Interpretation Completed By: Radiologist - No active disease is noted. ED physician has reviewed this radiology report and agrees. - CT CT L-spine CT Interpretation Completed By: Radiologist - ACUTE COMPRESSION TYPE DEFORMITY OF T12 DESCRIBED. ADDITIONAL IMAGING FINDINGS HAVE BEEN DOCUMENTED PREVIOUSLY. ED physician has reviewed this radiology report and agrees. - EKG 11:46 Cardiac Rate: NL EKG Rhythm: Sinus Rhythm - 84 BPM EKG Interpretation: Diffuse ST/T wave changes EKG Comparison: No Significant Change - in comparison with EKG from 02/20/17 Disposition - Course Course Of Treatment: Ms. Johnston had no more coughing or vomiting of blood here. Her major concern was a new back pain that was found to be a new compression fracture with no obvious pathological etiology. She was give pain control which gave her a lot of relief and I will continue that. If her hemoptysis persists, she will need more W/U. - Diagnoses Provider Diagnoses: Lumbar compression fracture - Physician Notifications Discussed Care Of Patient With: Neymar Cho Time Discussed With Above Provider: 15:14 Instructed by Provider To: Other - Discussed patient care plan with Dr. Cho and he agreed with the plan. Discharge - Discharge Plan Condition: Stable Disposition: HOME Prescriptions: HYDROcodone/ACETAMIN 5-325 MG* [Antonito 5-325 TAB*] 1 tab PO Q6H PRN #20 tab MDD 4 PRN Reason: Pain Patient Education Materials: Hydrocodone/Acetaminophen (By mouth), Thoracolumbar Fracture (ED) Referrals: Erik Flores MD [Primary Care Provider] - Additional Instructions: RETURN TO THE EMERGENCY DEPARTMENT FOR CHANGING OR WORSENING SYMPTOMS. The documentation as recorded by the Anton francois Gabriel accurately reflects the service I personally performed and the decisions made by me, Zane Oliveros MD.
== END | disposition home or self-care (01) ==
LOC: ED 11:02
DX: S32.009A Unspecified fracture of unspecified lumbar vertebra, initial encounter for closed fracture (principal); C18.9 Malignant neoplasm of colon, unspecified; Z88.0 Allergy status to penicillin; Z86.711 Personal history of pulmonary embolism; D64.9 Anemia, unspecified; K21.9 Gastro-esophageal reflux disease without esophagitis; Z87.891 Personal history of nicotine dependence; R04.2 Hemoptysis; X58.XXXA Exposure to other specified factors, initial encounter; Y92.9 Unspecified place or not applicable
CPT/HCPCS: 36415; 71020; 72131; 80053; 85025; 86140; 93005; 96360; 96374; 96375; 99283; J1170; J1642; J2405

== ENCOUNTER 2017-03-16 15:18 | Observation (INO) | payer MEDICARE ==
[2017-03-16] MEDS ORDERED: NS 0.9% 1000 ML* 1,000 ML IV SCH ×2 (16:15→19:09)
--- NOTE | 2017-03-16 16:26 | ED ---
Anton Estrada Gabriel, scribed for Taisha Rondon MD on 03/16/17 at 1605 . Dizziness - HPI Summary HPI Summary: This patient is a 71 year old female BIBA to [facility] with a chief complaint of dizziness and near syncope / syncope [employer]. Pt states was standing in line to pay at store when started to feel lightheaded. Pt states she was assisted to a chair - does not think she passed out,but states there is some time she does not remember. Patient reports previously feeling weak and dizzy due to decreased appetite secondary to chemotherapy. Pt states since Thursday has had frequent, "heavy" nosebleeds. pt states she blows out clots. Pt denies n/v/D. No cp, sob, abd pain. Pt has had mild low back pain - not new. pt has take APAP with some relief. Pt is not current in discomfort although had epistaxis in my presence. No conde, vision changes Patient has history of colon cancer, HTN, aortic aneurysm, and epitaxies, but previously less severe. Pt is not on anticoagulation Last chemo last week Pt's medications reviewed this visit - History Of Current Complaint Chief Complaint: EDDizziness Stated Complaint: NEAR SYNCOPE Time Seen by Provider: 03/16/17 15:29 Hx Obtained From: Patient Onset/Duration: Still Present, Suddenly Timing: Constant - epitaxis Severity Initially: Moderate Severity Currently: Mild Character: Lightheaded Aggravating Factor(s): Nothing Alleviating Factor(s): Nothing Associated Signs And Symptoms: Positive: Other: - recurrent epistaxis - Allergies/Home Medications Allergies/Adverse Reactions: Allergies Allergy/AdvReac Type Severity Reaction Status Date / Time Amoxicillin Allergy Intermediate Itching Verified 12/31/16 07:51 PMH/Surg Hx/FS Hx/Imm Hx Previously Healthy: Yes Endocrine/Hematology History: Reports: Hx Anemia Denies: Hx Anticoagulant Therapy, Hx Bone Marrow Disease, Hx Diabetes, Hx Sickle Cell Disease Cardiovascular History: Reports: Hx Aneurysm - Ascending Aortic Aneurysm, Hx Coronary Artery Disease - CAROTID DISEASE, Hx Embolism - PE, Hx Hypertension, Hx Peripheral Vascular Disease, Other Cardiovascular Problems/Disorders - DX THORACIC AORTIC ANEURYSM, DYSLIPIDEMIA Denies: Hx Cardiac Arrest Respiratory History: Reports: Hx Pulmonary Embolism - 12/2014, Other Respiratory Problems/Disorders - FREQUENT SOB GI History: Reports: Hx Gastroesophageal Reflux Disease, Other GI Disorders - DX 12/14 MALIGNANT NEOPLASM OF ASCENDING COLON History: Denies: Hx Renal Disease Musculoskeletal History: Reports: Other Musculoskeletal History - 1987 FX RIGHT ANKLE, LEFT BUNIONECTOMY 11/2014 Denies: Hx Arthritis, Hx Osteoporosis Sensory History: Reports: Hx Contacts or Glasses - GLASSES Denies: Hx Cataracts, Hx Glaucoma, Hx Hearing Aid Opthamlomology History: Reports: Hx Contacts or Glasses - GLASSES Denies: Hx Cataracts, Hx Glaucoma Neurological History: Reports: 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 LEFT BUNIONECTOMY- 11/2014- [facility] [place] Hx Anesthesia Reactions: No Infectious Disease History: No Infectious Disease History: Reports: Hx Hepatitis - 2014 HEP C, TREATED, Hx of Known/Suspected MRSA - PREVIOUS HX IN WOUND Denies: Traveled Outside the [place] in Last 30 Days - Family History Family History: No family history of breast cancer, malignant hyperthermia, or anesthesia reaction. - Social History Lives: Alone - ambulates freely Alcohol Use: None Alcohol Amount: Hx of heavy drinking Substance Use Type: Reports: None Substance Use Comment - Amount & Last Used: NOT RECENT Hx Tobacco Use: Yes Smoking Status (MU): Former Smoker Type: Cigarettes Amount Used/How Often: 5-6/DAY 25 YRS Length of Time of Smoking/Using Tobacco: 25 YRS Have You Smoked in the Last Year: No Review of Systems Negative: Other - lightheaded episode Eyes: Negative Positive: Epistaxis Negative: Chest Pain Negative: hematuria Neurological: Other - dizziness Positive: Weakness All Other Systems Reviewed And Are Negative: Yes Physical Exam Triage Information Reviewed: Yes Vital Signs On Initial Exam: Initial Vitals Temp Pulse Resp BP Pulse Ox 98.1 F 82 20 126/79 100 03/16/17 15:39 03/16/17 15:39 03/16/17 15:39 03/16/17 15:39 03/16/17 15:39 Vital Signs Reviewed: Yes Appearance: Positive: Well-Appearing, No Pain Distress, Well-Nourished Skin: Positive: Warm, Skin Color Reflects Adequate Perfusion, Dry, Other - palpable mediport Head/Face: Positive: Normal Head/Face Inspection Eyes: Positive: Normal, EOMI, BETO ENT: Positive: Pharyngeal erythema, Other - Pt with fresh clot b/l nostrils - pt developed epistaxis in my prescence. Pressure held x 5 min with stasis - RN notified. if recurrent, will consider packing Neck: Positive: Supple, Nontender, No Lymphadenopathy Respiratory/Lung Sounds: Positive: Clear to Auscultation, Breath Sounds Present Cardiovascular: Positive: Normal, RRR, Murmur Abdomen Description: Positive: Nontender, No Organomegaly, Soft Bowel Sounds: Positive: Present Musculoskeletal: Positive: Normal Neurological: Positive: Normal, Sensory/Motor Intact, Alert, Oriented to Person Place, Time Psychiatric: Positive: Normal AVPU Assessment: Alert - Nico Coma Scale Best Eye Response: 4 - Spontaneous Best Motor Response: 6 - Obeys Commands Best Verbal Response: 5 - Oriented Coma Scale Total: 15 Diagnostics - Vital Signs Vital Signs Temp Pulse Resp BP Pulse Ox 03/16/17 15:39 98.1 F 82 20 126/79 100 - Laboratory Result Diagrams: 03/16/17 16:27 03/16/17 16:27 Lab Statement: Any lab studies that have been ordered have been reviewed, and results considered in the medical decision making process. - Radiology CXR Radiology Interpretation Completed By: Radiologist - NO ACTIVE DISEASE. ED physician has reviewed this radiology report and agrees. - EKG 15:43 Cardiac Rate: NL EKG Rhythm: Sinus Rhythm - at 83 BPM EKG Interpretation: inverted T waves in V5 and V6 EKG Comparison: No Significant Change - in comparison with EKG from 02/27/17 Re-Evaluation - Re-Evaluation First Eval Re-Evaluation Time: 16:51 Change: Improved - The patients epistaxis has ceased. Second Eval Re-Evaluation Time: 17:48 Change: Unchanged - They patients epistaxis still has not reoccurred. She knows she will be admitted and that we are still waiting for oncology to return our call. Third Eval Change: Unchanged - no bleeding Pt reports feeling congested and "can't breath" through mouth pt aware will be admitted - spoke with Dr. Cho - will admit, urine pending Dizzy Course/Dx - Course Assessment/Plan: Pt with a near syncopal episode in line a grocery store. Pt with recurrent epistaxis x 3 days. Pt actively receiving chemotherapy. Will check labs. EKG. cxr. epistaxis control. Pt comfortable and in agreement with plan - Diagnoses Provider Diagnoses: Syncope, Epistaxis, Anemia - Provider Notifications Discussed Care Of Patient With: Neymar Cho - will admit Time Discussed With Above Provider: 17:52 Instructed by Provider To: Admit As Observation - We discussed patient care with Dr. Cho, oncology and they he agreed to admit Discharge - Discharge Plan Condition: Stable Disposition: ADMITTED TO [facility] Referrals: Erik Flores MD [Primary Care Provider] - The documentation as recorded by the Anton francois Gabriel accurately reflects the service I personally performed and the decisions made by , Taisha Rondon MD.
[2017-03-16 16:58] LABS: ABS Basophils 0 10^3/ul (0-0.2); ABS Eosinophils 0 10^3/ul (0-0.6); ABS Lymphocytes 0.7 10^3/ul (1.0-4.8); ABS Monocytes 0.2 10^3/ul (0-0.8); ABS Neutrophils 2.9 10^3/ul (1.5-7.7); ABS Nucleated RBC 0 10^3/ul; Eosinophil % 0.5 % (0-6); Hematocrit 21 % (35-47); Hemoglobin 7.2 g/dl (12.0-16.0); Lymphocyte % 19.2 % (25-47); Mean Corpuscular HGB Conc 35 g/dl (31-36); Mean Corpuscular Hemoglobin 28 pg (27-31); Mean Corpuscular Volume 80 fL (80-97); Mean Platelet Volume 8 um3 (7.4-10.4); Nucleated Red Blood Cells % 0.1; Platelet Count 137 10^3/ul (150-450); Red Cell Distribution Width 20 % (10.5-15); White Blood Count 3.9 10^3/ul (3.5-10.8)
--- NOTE | 2017-03-16 17:14 | RAD ---
INDICATION: Syncope COMPARISON: February 27, 2017 TECHNIQUE: An AP portable view obtained at 1640 hours is submitted. FINDINGS: Bones/Soft Tissues: There are no acute bony findings. There is a right-sided [id number] catheter Cardiomediastinal: The cardiac silhouette is enlarged with uncoiling of the thoracic aorta which markedly ectatic, unchanged. Lungs: There are no infiltrates. Pleura: There are no pleural effusions. Other: None IMPRESSION: NO ACTIVE DISEASE.
[2017-03-16] MEDS ORDERED: KETOROLAC 0.5% OPHTHALMIC PRN (19:11)
[2017-03-16] MEDS ORDERED: traMADol TAB* 50 MG PO PRN (19:11)
[2017-03-16] MEDS ORDERED: Prochlorperazine TAB* 10 MG PO PRN (19:11)
[2017-03-16] MEDS ORDERED: Polyethylene Glycol 3350* 17 GM PACKET PO PRN (19:13)
[2017-03-16] MEDS: HYDROcodone/ACETAMIN 5-325 MG* 1 TAB PO PRN (21:58)
[2017-03-17] MEDS: prednisoLONE 1% OPHTH.SUSP* 5 ML OPHTH.SUSP BOTH EYES SCH ×3 (01:09→20:46)
[2017-03-17 05:13] LABS: ABS Basophils 0 10^3/ul (0-0.2); ABS Eosinophils 0 10^3/ul (0-0.6); ABS Lymphocytes 1.2 10^3/ul (1.0-4.8); ABS Monocytes 0.3 10^3/ul (0-0.8); ABS Neutrophils 3.4 10^3/ul (1.5-7.7); ABS Nucleated RBC 0.01 10^3/ul; Eosinophil % 0.2 % (0-6); Hematocrit 24 % (35-47); Hemoglobin 8.2 g/dl (12.0-16.0); Lymphocyte % 25.1 % (25-47); Mean Corpuscular HGB Conc 35 g/dl (31-36); Mean Corpuscular Hemoglobin 28 pg (27-31); Mean Corpuscular Volume 81 fL (80-97); Mean Platelet Volume 8 um3 (7.4-10.4); Nucleated Red Blood Cells % 0.2; Platelet Count 122 10^3/ul (150-450); Red Blood Count 2.91 10^6/ul (4.0-5.4); Red Cell Distribution Width 19 % (10.5-15)
[2017-03-17 05:24] LABS: INR 1.05 (0.77-1.02)
[2017-03-17 05:41] LABS: EGFR Non-African American 39.6 (>60)
[2017-03-17] MEDS: Labetalol TAB* 200 MG PO SCH ×2 (06:04→20:45)
[2017-03-17] MEDS: Saline NASAL SPRAY 0.65%* BTL BOTH NARES PRN ×2 (07:46→19:41)
[2017-03-17] MEDS: Cyanocobalamin TAB* 500 MCG PO SCH (08:03)
[2017-03-17] MEDS: Cholecalciferol TAB* 400 UNIT PO SCH (08:03)
[2017-03-17] MEDS: HYDROcodone/ACETAMIN 5-325 MG* 1 TAB PO PRN (10:36)
[2017-03-17] MEDS: Potassium Chlor TAB* 20 MEQ TAB.ER PO SCH ×2 (10:36→20:44)
[2017-03-17] MEDS: Ondansetron TAB* 4 MG PO PRN (17:53)
[2017-03-18] MEDS: HYDROcodone/ACETAMIN 5-325 MG* 1 TAB PO PRN (02:28)
[2017-03-18] MEDS: Cyanocobalamin TAB* 500 MCG PO SCH (08:29)
[2017-03-18] MEDS: Labetalol TAB* 200 MG PO SCH (08:29)
[2017-03-18] MEDS: Cholecalciferol TAB* 400 UNIT PO SCH (08:29)
[2017-03-18] MEDS: prednisoLONE 1% OPHTH.SUSP* 5 ML OPHTH.SUSP BOTH EYES SCH (08:29)
[2017-03-18] MEDS: Potassium Chlor TAB* 20 MEQ TAB.ER PO SCH (08:29)
[2017-03-18 11:51] VITALS: BP 160/87
[2017-03-18] MEDS: Ondansetron TAB* 4 MG PO PRN (13:58)
== END 2017-03-18 16:08 | disposition home or self-care (01) ==
LOC: ED 15:18 → MEDTELE 19:03 → ED 20:03
PROVIDERS: ADMIT Internal Medicine Hematology & Oncology; ATTEND Internal Medicine Hematology & Oncology
DX: R55 Syncope and collapse (principal); R04.0 Epistaxis; D64.9 Anemia, unspecified; Z85.038 Personal history of other malignant neoplasm of large intestine; Z86.79 Personal history of other diseases of the circulatory system; R53.1 Weakness; Z87.891 Personal history of nicotine dependence; R42 Dizziness and giddiness
CPT/HCPCS: 36415; 36430; 71010; 80048; 80053; 83735; 84484; 85025; 85610; 85730; 86078; 86850; 86900; 86901; 86922; 87641; 93005; 99232; 99238; 99285; A9270-GY; G0378; P9040

== ENCOUNTER 2017-03-19 04:40 | Emergency (ER) | payer MEDICARE ==
[2017-03-19] MEDS ORDERED: Thrombin 20,000 UNITS* KIT - spray for topical use - TOPICAL ONE (05:30)
[2017-03-19 06:24] LABS: Hematocrit 24 % (35-47); Hemoglobin 8.3 g/dl (12.0-16.0); Mean Corpuscular HGB Conc 35 g/dl (31-36); Mean Corpuscular Hemoglobin 29 pg (27-31); Mean Corpuscular Volume 81 fL (80-97); Mean Platelet Volume 8 um3 (7.4-10.4); Red Blood Count 2.89 10^6/ul (4.0-5.4); Red Cell Distribution Width 19 % (10.5-15); White Blood Count 6.2 10^3/ul (3.5-10.8)
[2017-03-19 06:30] LABS: Add Diff/Slide Review? Slide Review Added; Comments Flag Yes
[2017-03-19 06:37] LABS: Albumin 2.9 g/dL (3.2-5.2); BUN/Creatinine Ratio 15.7 (8-20); Calcium 9.2 mg/dL (8.6-10.3); EGFR African American 47.9 (>60); EGFR Non-African American 37.3 (>60); Globulin 5.2 g/dL (2-4); Potassium 4.6 mmol/L (3.5-5.0); Total Bilirubin 0.6 mg/dL (0.2-1.0); Total Protein 8.1 g/dL (6.4-8.9)
[2017-03-19] MEDS ORDERED: Phenylephrine 0.5% NASAL* BTL BOTH NARES ONE (06:42)
--- NOTE | 2017-03-19 06:47 | ED ---
Elizabeth Estrada Emily, scribed for Vahid Mendez on 03/19/17 at 0527 . Throat Pain/Nasal Congestion - HPI Summary HPI Summary: This patient is a 71 year old F BIBA to [facility] with a chief complaint of epistaxis that began at 1700 yesterday. The patient rates the pain 0/10 in severity. Symptoms aggravated by nothing. Symptoms alleviated by nothing. Patient denies fever. Pt was admitted to [facility] on 03/16/2017 for an epistaxis. - History of Current Complaint Chief Complaint: EDEpistaxis Time Seen by Provider: 03/19/17 05:07 Hx Obtained From: Patient Onset/Duration: Sudden Onset, Lasting Hours, Resolved Severity: Mild - Allergies/Home Medications Allergies/Adverse Reactions: Allergies Allergy/AdvReac Type Severity Reaction Status Date / Time Amoxicillin Allergy Intermediate Itching Verified 03/19/17 04:49 PMH/Surg Hx/FS Hx/Imm Hx Previously Healthy: No Endocrine/Hematology History: Reports: Hx Anemia Denies: Hx Anticoagulant Therapy, Hx Bone Marrow Disease, Hx Diabetes, Hx Sickle Cell Disease Cardiovascular History: Reports: Hx Aneurysm - Ascending Aortic Aneurysm, Hx Coronary Artery Disease - CAROTID DISEASE, Hx Embolism - PE, Hx Hypertension, Hx Peripheral Vascular Disease, Other Cardiovascular Problems/Disorders - DX THORACIC AORTIC ANEURYSM, DYSLIPIDEMIA Denies: Hx Cardiac Arrest Respiratory History: Reports: Hx Pulmonary Embolism - 12/2014, Other Respiratory Problems/Disorders - FREQUENT SOB GI History: Reports: Hx Gastroesophageal Reflux Disease, Other GI Disorders - DX 12/14 MALIGNANT NEOPLASM OF ASCENDING COLON History: Denies: Hx Renal Disease Musculoskeletal History: Reports: Other Musculoskeletal History - 1987 FX RIGHT ANKLE, LEFT BUNIONECTOMY 11/2014 Denies: Hx Arthritis, Hx Osteoporosis Sensory History: Reports: Hx Contacts or Glasses Denies: Hx Cataracts, Hx Glaucoma, Hx Hearing Aid Opthamlomology History: Reports: Hx Contacts or Glasses Denies: Hx Cataracts, Hx Glaucoma Neurological History: Reports: Hx Seizures - 10/2016 GRAND MAL SEIZURE PER ED NOTES, PT DENIES Denies: Other Neuro Impairments/Disorders Psychiatric History: Reports: Hx Anxiety - MILD - Cancer History Cancer Type, Location and Year: COLON W/ METS Hx Chemotherapy: Yes - 01/10/17 STARTED CHEMOTHERAPY Hx Radiation Therapy: No - Surgical History Surgery Procedure, Year, and Place: ORIF FX RIGHT ANKLE- 1987[place] [facility]UNION[place]OM[place]- 11/2014[place] [facility] Hx Anesthesia Reactions: No - Immunization History Date of Influenza Vaccine: 02/2017 Infectious Disease History: No Infectious Disease History: Reports: Hx Hepatitis - 2014 HEP C, TREATED, Hx of Known/Suspected MRSA - PREVIOUS HX IN WOUND Denies: Traveled Outside the [place] in Last 30 Days - Family History Known Family History: Positive: None Family History: No family history of breast cancer, malignant hyperthermia, or anesthesia reaction. - Social History Occupation: Retired Lives: Alone Alcohol Use: None Alcohol Amount: Hx of heavy drinking Substance Use Type: Reports: None Substance Use Comment - Amount & Last Used: NOT RECENT Hx Tobacco Use: Yes Smoking Status (MU): Former Smoker Type: Cigarettes Amount Used/How Often: 5-6/DAY 25 YRS Length of Time of Smoking/Using Tobacco: 25 YRS Have You Smoked in the Last Year: No Review of Systems Negative: Fever Positive: Epistaxis All Other Systems Reviewed And Are Negative: Yes Physical Exam Triage Information Reviewed: Yes Vital Signs On Initial Exam: Initial Vitals Temp Pulse Resp BP Pulse Ox 98.2 F 94 16 146/90 100 03/19/17 04:40 03/19/17 04:40 03/19/17 04:40 03/19/17 04:40 03/19/17 04:40 Vital Signs Reviewed: Yes Appearance: Positive: Well-Appearing, No Pain Distress Skin: Positive: Warm, Skin Color Reflects Adequate Perfusion, Dry Head/Face: Positive: Normal Head/Face Inspection Eyes: Positive: EOMI, BETO ENT: Positive: Other - Dried blood in R nostril Neck: Positive: Supple, Nontender Respiratory/Lung Sounds: Positive: Clear to Auscultation, Breath Sounds Present Cardiovascular: Positive: RRR, Pulses are Symmetrical in both Upper and Lower Extremities Abdomen Description: Positive: Nontender, Soft Bowel Sounds: Positive: Present Musculoskeletal: Positive: Normal, Strength/ROM Intact Neurological: Positive: Normal, Sensory/Motor Intact, Alert, Oriented to Person Place, Time Psychiatric: Positive: Affect/Mood Appropriate Diagnostics - Vital Signs Vital Signs Temp Pulse Resp BP Pulse Ox 03/19/17 04:52 92 99 03/19/17 04:50 146/83 03/19/17 04:40 98.2 F 94 16 146/90 100 - Laboratory Result Diagrams: 03/19/17 06:02 03/19/17 06:02 Lab Statement: Any lab studies that have been ordered have been reviewed, and results considered in the medical decision making process. Re-Evaluation - Re-Evaluation First Eval Re-Evaluation Time: 05:45 Change: Improved Comment: Treatment of thrombin nasal spray. Pt tolerated treatment well. EENT Course/Dx - Course Assessment/Plan: This patient is a 71 year old F BIBA to [facility] with a chief complaint of epistaxis that began at 1700 yesterday. Pt was admitted to [facility] on 03/16/2017 for an epistaxis. Physical Exam Findings. Dried blood in R nostril. Bloodwork obtained. Re-eval of pt at 0545. Pt tolerated thrombin nasal spray treatment well. Patient will be discharged with follow up from PCP. The patient is agreeable with this plan. - Diagnoses Provider Diagnoses: Epistaxis, History of anemia Discharge - Discharge Plan Condition: Stable Disposition: HOME Patient Education Materials: Nosebleed (ED) Referrals: Erik Flores MD [Primary Care Provider] - 3 Days Additional Instructions: RETURN TO THE EMERGENCY DEPARTMENT FOR NEW OR WORSENING SYMPTOMS The documentation as recorded by the Elizabeth francois Emily accurately reflects the service I personally performed and the decisions made by , Vahid Mendez.
[2017-03-19 07:29] VITALS: BP 140/84
== END 2017-03-19 07:27 | disposition home or self-care (01) ==
LOC: ED 04:40
DX: R04.0 Epistaxis (principal); D64.9 Anemia, unspecified; Z87.891 Personal history of nicotine dependence; B19.20 Unspecified viral hepatitis C without hepatic coma; I25.10 Atherosclerotic heart disease of native coronary artery without angina pectoris; I10 Essential (primary) hypertension; Z86.711 Personal history of pulmonary embolism; I73.9 Peripheral vascular disease, unspecified; E78.5 Hyperlipidemia, unspecified; K21.9 Gastro-esophageal reflux disease without esophagitis; C18.9 Malignant neoplasm of colon, unspecified
CPT/HCPCS: 36415; 80053; 85025; 85060; 85610; 85730; 99282; A9270-GY

== ENCOUNTER 2017-03-22 16:29 | Emergency (ER) | payer MEDICARE ==
[2017-03-22] MEDS ORDERED: NS 0.9% 1000 ML* 1,000 ML IV ONE (17:25)
[2017-03-22] MEDS ORDERED: Saline NASAL DROPS 0.65%* 1 DROP BTL BOTH NARES ONE (17:25)
[2017-03-22 18:32] LABS: ABS Basophils 0 10^3/ul (0-0.2); ABS Eosinophils 0 10^3/ul (0-0.6); ABS Lymphocytes 0.4 10^3/ul (1.0-4.8); ABS Monocytes 0.4 10^3/ul (0-0.8); ABS Neutrophils 1.9 10^3/ul (1.5-7.7); ABS Nucleated RBC 0.04 10^3/ul; Eosinophil % 0 % (0-6); Hematocrit 41 % (35-47); Lymphocyte % 15.2 % (25-47); Mean Corpuscular HGB Conc 34 g/dl (31-36); Mean Corpuscular Hemoglobin 28 pg (27-31); Mean Corpuscular Volume 82 fL (80-97); Mean Platelet Volume 9 um3 (7.4-10.4); Nucleated Red Blood Cells % 1.4; Platelet Count 68 10^3/ul (150-450); Red Blood Count 4.98 10^6/ul (4.0-5.4); Red Cell Distribution Width 19 % (10.5-15); White Blood Count 2.7 10^3/ul (3.5-10.8)
[2017-03-22 18:42] LABS: EGFR Non-African American 39.2 (>60)
--- NOTE | 2017-03-22 22:04 | ED ---
Progress - Progress Note Progress Note: Pt's niece came to the hospital with concerns about aunt's recurring bloody noses. She was upset that she's being d/c'd as she doesn't understand why they keep happening. They are interfering with patient's quality of life as when she gets a nose bleed, she can't focus on anything else (ie. eating, drinking, hobbies, etc). Her niece reports it was quite purchasing/receiving pt's apartment (well above 68F). Pt has not been using saline nasal spray, does not have a humidifier , and has not been eating/drinking much as she has reduce appetite from colon cancer/cancer treatments and recurring epistaxis. After a long conversation about pt's overall health and that she's stable for d/c tonight, niece agrees to help aunt w/ heat control, humidification and saline spray provided here tonight. Niece will also contact Dr. Cho this week to discuss possible medication to help with appetite. Pt's platelets are low as well which are most likely not helping her epistaxis when it occurs however pt does not have a bloody nose now and has not had one since she's been here - has dried blood in her nares and on her face/hands - this was cleaned by nursing and pt feels much better. Provided education about return of epistaxis including adequate consistent pressure for at least 20 minutes. If bleeding is not controlled with these recommendations, advised to return to ED. Niece will call ENT this week as well for evaluation. Niece will also contact pt's PCP to arrange for home health services, including Me[employer] on Wheels. Pt and niece agree w/ plan and seem satisfied with short and usp plans. NOTE: upon inspecting pt's nares and TM's, a thin purulent drainage was coming from pt's Rt EAC - no erythema, no edema, mastoid NTTP but pt is concerned about this. Otic anbx rx'd tonight and pt will f/u w/ PCP or ENT (whomever can get her in first) for recheck. She will seek f/u if she has issues prior. PETEY RAWLS 03/22/2017 22:05 Course/Dx - Diagnoses Provider Diagnoses: Epistaxis
[2017-03-23 00:08] VITALS: BP 141/71
[2017-03-23] MEDS ORDERED: Ofloxacin 0.3% OTIC.SOL* 5 ML BTL RIGHT EAR ONE (21:44)
--- NOTE | 2017-04-02 10:37 | ED ---
Jos Estrada Abhishek, scribed for Chico Ray MD on 03/22/17 at 1728 . Throat Pain/Nasal Congestion - HPI Summary HPI Summary: This patient is a 71 year old F BIBA with a chief complaint of Epistaxis since today at 1000. Pt states she was here on last Thursday and for epistaxis and HTN. Not on aspirin or other blood thinners. The patient rates the pain 0/ 10 in severity. Symptoms aggravated by nothing. Symptoms alleviated by nothing. Patient reports lightheadedness ear popping. Patient denies SOB, dizziness, and weakness. - History of Current Complaint Chief Complaint: EDEpistaxis Time Seen by Provider: 03/22/17 16:42 Hx Obtained From: Patient Onset/Duration: Sudden Onset - this morning at 1000, Resolved - Allergies/Home Medications Allergies/Adverse Reactions: Allergies Allergy/AdvReac Type Severity Reaction Status Date / Time Amoxicillin Allergy Intermediate Itching Verified 03/22/17 16:43 PMH/Surg Hx/FS Hx/Imm Hx Endocrine/Hematology History: Reports: Hx Anemia Denies: Hx Anticoagulant Therapy, Hx Bone Marrow Disease, Hx Diabetes, Hx Sickle Cell Disease Cardiovascular History: Reports: Hx Aneurysm - Ascending Aortic Aneurysm, Hx Coronary Artery Disease - CAROTID DISEASE, Hx Embolism - PE, Hx Hypertension, Hx Peripheral Vascular Disease, Other Cardiovascular Problems/Disorders - DX THORACIC AORTIC ANEURYSM, DYSLIPIDEMIA Denies: Hx Cardiac Arrest Respiratory History: Reports: Hx Pulmonary Embolism - 12/2014, Other Respiratory Problems/Disorders - FREQUENT SOB GI History: Reports: Hx Gastroesophageal Reflux Disease, Other GI Disorders - DX 12/14 MALIGNANT NEOPLASM OF ASCENDING COLON History: Denies: Hx Renal Disease Musculoskeletal History: Reports: Other Musculoskeletal History - 1987 FX RIGHT ANKLE, LEFT BUNIONECTOMY 11/2014 Denies: Hx Arthritis, Hx Osteoporosis Sensory History: Reports: Hx Contacts or Glasses Denies: Hx Cataracts, Hx Glaucoma, Hx Hearing Aid Opthamlomology History: Reports: Hx Contacts or Glasses Denies: Hx Cataracts, Hx Glaucoma Neurological History: Reports: 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 LEFT BUNIONECTOMY- 11/2014- [facility] [place] Hx Anesthesia Reactions: No - Immunization History Date of Influenza Vaccine: 02/2017 Infectious Disease History: No Infectious Disease History: Reports: Hx Hepatitis - 2014 HEP C, TREATED, Hx of Known/Suspected MRSA - PREVIOUS HX IN WOUND Denies: Traveled Outside the [place] in Last 30 Days - Family History Known Family History: Positive: Other - aneurysm and peripheral vascular disease Family History: No family history of breast cancer, malignant hyperthermia, or anesthesia reaction. - Social History Alcohol Use: None Alcohol Amount: Hx of heavy drinking Substance Use Type: Reports: None Substance Use Comment - Amount & Last Used: NOT RECENT Hx Tobacco Use: Yes Smoking Status (MU): Former Smoker Type: Cigarettes Amount Used/How Often: 5-6/DAY 25 YRS Length of Time of Smoking/Using Tobacco: 25 YRS Have You Smoked in the Last Year: No Review of Systems Constitutional: Negative Eyes: Negative ENT: Other - "ear popping" Positive: Epistaxis Cardiovascular: Negative Negative: Shortness Of Breath Gastrointestinal: Negative Genitourinary: Negative Musculoskeletal: Negative Skin: Negative Neurological: Other - Lightheadness and Negative dizziness Negative: Weakness Psychological: Normal All Other Systems Reviewed And Are Negative: Yes Physical Exam - Summary Physical Exam Summary: Constitutional: Well-developed, Well-nourished, Alert. (-) Distressed Skin: Warm, Dry HENT: Small amount of blood in left nare, no active bleeding Eyes: Conjunctiva normal Neck: Musculoskeletal ROM normal neck. (-) JVD, (-) Stridor, (-) Tracheal deviation Cardio:Pulse of 102 bpm Pulmonary/Chest wall: Effort normal. (-) Respiratory distress, (-) Wheezes, (-) Rales Abd: Soft, (-) Tenderness, (-) Distension, (-) Guarding, (-) Rebound Musculoskeletal: (-) Edema Lymph: (-) Cervical adenopathy Neuro: Alert, Oriented x3 Psych: Mood and affect Normal Triage Information Reviewed: Yes Vital Signs On Initial Exam: Initial Vitals Temp Pulse Resp BP Pulse Ox 97.3 F 96 16 126/73 100 03/22/17 16:30 03/22/17 16:30 03/22/17 16:30 03/22/17 16:30 03/22/17 16:30 Vital Signs Reviewed: Yes - Byers Coma Scale Coma Scale Total: 15 Diagnostics - Vital Signs Vital Signs Temp Pulse Resp BP Pulse Ox 03/22/17 17:00 98 32 100 03/22/17 16:40 100 24 99 03/22/17 16:30 97.3 F 96 16 126/73 100 - Laboratory Result Diagrams: 03/22/17 18:15 03/22/17 18:15 Lab Statement: Any lab studies that have been ordered have been reviewed, and results considered in the medical decision making process. - EKG 1735 EKG Rhythm: Sinus Rhythm - 98 bpm EKG Interpretation: An EKG at 1735 reveals negative STEMI and ST segment EENT Course/Dx - Course Course Of Treatment: This patient is a 71 year old F BIBA with a chief complaint of Epistaxis since today at 1000. Pt states she was here on last Thursday and for epistaxis and HTN. Not on aspirin or other blood thinners. Patient reports lightheadedness ear popping. Patient denies SOB, dizziness, and weakness. Patient will be discharged home. Dx will be epistaxis. We recommended patient use humidifer and use saline in both nostrils. - Diagnoses Provider Diagnoses: Epistaxis Discharge - Discharge Plan Condition: Stable Disposition: HOME Patient Education Materials: Nosebleed (ED) Referrals: Vance Gupta MD [Medical Doctor] - (Follow up with ENT wtihin 2 to 3 days.) Erik Flores MD [Primary Care Provider] - Additional Instructions: RETURN TO THE EMERGENCY DEPARTMENT FOR CHANGING OR WORSENING SYMPTOMS. We recommend using a humidifier in your bed room and using saline in both nostrils The documentation as recorded by the Jos francois Abhishek accurately reflects the service I personally performed and the decisions made by , Chico Ray MD.
== END 2017-03-22 22:10 | disposition home or self-care (01) ==
LOC: ED 16:29
DX: R04.0 Epistaxis (principal); I10 Essential (primary) hypertension; Z88.3 Allergy status to other anti-infective agents; Z87.891 Personal history of nicotine dependence
CPT/HCPCS: 36415; 36430; 80053; 83605; 84484; 85025; 86850; 86900; 86901; 86922; 93005; 99283; A9270-GY; J1642; P9040

== ENCOUNTER 2017-03-28 21:34 | Inpatient (IN) | payer MEDICARE, MEDICAID ==
[2017-03-28] MEDS ORDERED: LORazepam INJ* 2 MG/ML 1 ML VIAL IV PUSH ONE ×3 (21:45→23:28)
[2017-03-28] MEDS ORDERED: NS 0.9% 1000 ML* 1,000 ML IV ONE ×2 (21:48→22:12)
--- NOTE | 2017-03-28 21:59 | RAD ---
INDICATION: Respiratory distress COMPARISON: Most recent comparison chest x-ray is dated March 16, 2017 TECHNIQUE: Single AP portable view of the chest was obtained. FINDINGS: Image quality is compromised due to the relative inferiority of a portable chest x-ray. Again seen is a right subclavian vein power port with the tip terminating at the superior vena cava. The heart and mediastinum exhibit normal size and contour. The lungs are grossly clear. There is no evidence of a large pleural effusion. Visualized bones are normal for the patient's age. IMPRESSION: No radiographic evidence for acute cardiopulmonary abnormality on this portable chest x-ray.
[2017-03-28] MEDS ORDERED: diPHENhydraMINE IV* 50 MG/ML 1 ml VIAL (BENADRYL) IV ONE (22:01)
[2017-03-28] MEDS ORDERED: diPHENhydraMINE IV* 50 MG/ML 1 ml VIAL (BENADRYL) ONE (22:02)
[2017-03-28 22:05] LABS: ABS Basophils 0.1 10^3/ul (0-0.2); ABS Eosinophils 0 10^3/ul (0-0.6); ABS Lymphocytes 0.8 10^3/ul (1.0-4.8); ABS Monocytes 0.5 10^3/ul (0-0.8); ABS Neutrophils 25.2 10^3/ul (1.5-7.7); ABS Nucleated RBC 0.02 10^3/ul; Eosinophil % 0.1 % (0-6); Hematocrit 29 % (35-47); Hemoglobin 10.1 g/dl (12.0-16.0); Lymphocyte % 2.9 % (25-47); Mean Corpuscular HGB Conc 35 g/dl (31-36); Mean Corpuscular Hemoglobin 28 pg (27-31); Mean Corpuscular Volume 81 fL (80-97); Mean Platelet Volume 8 um3 (7.4-10.4); Nucleated Red Blood Cells % 0.1; Platelet Count 413 10^3/ul (150-450); Red Cell Distribution Width 20 % (10.5-15); White Blood Count 26.5 10^3/ul (3.5-10.8)
[2017-03-28] MEDS ORDERED: Piperacillin/Tazobac ADVAN(*) 3.375 GM in NS 0.9% 100 ML* 100 ML IVPB ONE (22:11)
[2017-03-28 22:17] LABS: EGFR Non-African American 42.9 (>60)
[2017-03-28 22:22] LABS: Urine Appearance Clear; Urine Blood 2+ (Negative); Urine Color Yellow; Urine Ketones Negative (Negative); Urine Protein 1+(30 mg/dL) (Negative); Urine Specific Gravity 1.013 (1.010-1.030); Urine Urobilinogen Negative (Negative)
[2017-03-28] MEDS ORDERED: Iodixanol* (CONTRAST) 320 MG/ML 100 ML SDV IV ONE (22:39)
[2017-03-28 23:04] LABS: INR 1.43 (0.77-1.02)
[2017-03-28] MEDS ORDERED: Morphine INJ* 2 MG/ML 1 ML SYRINGE (TWO MG - NEW SYRINGE VERSION) IV PRN (23:44)
[2017-03-28] MEDS ORDERED: Albuterol 2.5 MG/3 ML NEB.SOL* (0.083%) INH PRN (23:44)
[2017-03-28] MEDS ORDERED: Ondansetron INJ* 2 MG/ML VIAL IV PRN (23:44)
[2017-03-28] MEDS ORDERED: NS 0.9% 1000 ML* 2,000 ML IV ONE (23:44)
[2017-03-28] MEDS ORDERED: Vancomycin(*) 1,000 MG VIAL IVPB SCH (23:45)
[2017-03-28] MEDS ORDERED: Lidocaine 1%* 5 ML VIAL ONE (23:56)
[2017-03-29] MEDS ORDERED: Vancomycin(*) 1,000 MG in NS 0.9% 250 ML* 250 ML IVPB ONE (00:30)
[2017-03-29] MEDS ORDERED: Metoprolol Tartrate IV* 1 MG/ML 5 ML VIAL IV ONE (00:37)
[2017-03-29] MEDS ORDERED: hydrALAZINE IV* 20 MG/ML VIAL ONE (02:41)
[2017-03-29] MEDS ORDERED: hydrALAZINE IV* 20 MG/ML VIAL IV SLOW PU ONE (02:43)
[2017-03-29] MEDS ORDERED: Labetalol IV* 5 MG/ML 20 ML VIAL IV PUSH ONE (03:19)
[2017-03-29] MEDS ORDERED: Labetalol IV* 5 MG/ML 20 ML VIAL ONE (03:23)
[2017-03-29] MEDS ORDERED: Morphine VIAL* 10 MG/ML 1 ML VIAL IV STA (03:27)
[2017-03-29] MEDS ORDERED: Morphine INJ* 4 MG/ML 1 ML CARPUJECT ONE (03:28)
[2017-03-29] MEDS ORDERED: Diltiazem IV VIAL* 125 MG/25 ML VIAL ONE (03:54)
[2017-03-29] MEDS: Labetalol IV* 5 MG/ML 20 ML VIAL IVPB SCH ×4 (04:00→21:44)
[2017-03-29] MEDS ORDERED: Morphine INJ* 4 MG/ML 1 ML CARPUJECT IV STA (04:22)
[2017-03-29] MEDS ORDERED: Vancomycin per Pharmacy* NOTE FOLLOW UP PRN (06:26)
[2017-03-29] MEDS ORDERED: hydrALAZINE IV* 20 MG/ML VIAL IV SLOW PU PRN (06:43)
[2017-03-29] MEDS: Diltiazem IV* 5 MG/ML 5 ML VIAL (for loading dose/IV Push) (25 MG) IV SLOW PU SCH ×4 (06:50→23:57)
[2017-03-29] MEDS: KCL premix 10MEQ/50 ML x 6 RUNS IV SCH ×6 (06:51→20:12)
[2017-03-29] MEDS ORDERED: KCL 20 MEQ/100 ML IVPREMIX* 20 MEQ/100 ML BAG IV SCH (07:00)
[2017-03-29 07:18] LABS: ABS Basophils 0.1 10^3/ul (0-0.2); ABS Eosinophils 0 10^3/ul (0-0.6); ABS Lymphocytes 0.6 10^3/ul (1.0-4.8); ABS Monocytes 1.5 10^3/ul (0-0.8); ABS Neutrophils 20.1 10^3/ul (1.5-7.7); ABS Nucleated RBC 0.04 10^3/ul; Eosinophil % 0.1 % (0-6); Hematocrit 32 % (35-47); Hemoglobin 10.9 g/dl (12.0-16.0); Lymphocyte % 2.7 % (25-47); Mean Corpuscular HGB Conc 34 g/dl (31-36); Mean Corpuscular Hemoglobin 27 pg (27-31); Mean Corpuscular Volume 81 fL (80-97); Mean Platelet Volume 8 um3 (7.4-10.4); Nucleated Red Blood Cells % 0.2; Platelet Count 277 10^3/ul (150-450); Red Cell Distribution Width 20 % (10.5-15); White Blood Count 22.3 10^3/ul (3.5-10.8)
[2017-03-29 08:45] LABS: Monocytes % 3 % (0-13)
--- NOTE | 2017-03-29 08:57 | RAD ---
INDICATION: Difficulty breathing COMPARISON: CT of the brain dated November 26, 2016 TECHNIQUE: Contiguous axial sections of the brain were obtained from the skull base to the vertex without contrast. FINDINGS: The ventricles, cisterns and sulci mild symmetric involutional changes similar in appearance to the previous CT of the brain. There is periventricular and subcortical white matter hypoattenuation most consistent with chronic microvascular disease. The yuen-white matter differentiation is adequately maintained and there is no sulcal effacement. No significant focal abnormality or mass effect is present. There is no evidence for intracranial hemorrhage. No significant focal osseous abnormality is present. There is mild mucosal thickening of the left maxillary sinus. There is partial mastoid air cell effusion of the dependent bilateral mastoid air cells. IMPRESSION: 1. Evidence of chronic microvascular disease without noncontrast CT appearance of acute territorial infarction or acute intracranial hemorrhage. 2. Bilateral mastoid air cell effusion new since the November 26, 2016 CT of the brain.
--- NOTE | 2017-03-29 09:17 | RAD ---
STUDY: CT angiography of the chest, abdomen and pelvis. INDICATION: Abdominal pain radiating to the back. COMPARISON: CT urogram dated February 27, 2017 and CTA of the chest July 25, 2016 TECHNIQUE: Multidetector CT angiography of the chest, abdomen and pelvis were obtained from the lung apices to the ischial tuberosities after the intravenous injection of 100 mL Visipaque 320. Reformats were created in the coronal and sagittal planes. 3-D vascular imaging was created from the source images and reviewed as well. ANGIOGRAPHIC FINDINGS: Measured at the level of the right pulmonary artery the ascending aorta measures 4.5 x 4.6 cm and the descending aorta measures 3.7 x 4.3 cm in the axial plane unchanged from the previous CTA of the chest. The 3 major branch vessels of the aortic arch appear to fill adequately. Beginning immediately beyond the branch point of the left subclavian artery there is an aortic dissection that extends down the thoracic aorta inferiorly into the abdominal aorta the celiac trunk and superior mesenteric artery branch off of the false lumen. Dissection extends into the superior mesenteric artery. The bilateral renal arteries appear to branch off of the true lumen of the dissection. The dissection extends as far as the iliac bifurcation and extends inferiorly into the bilateral common iliac arteries. The dissection is seen as far as the right external iliac artery. NON ANGIOGRAPHIC FINDINGS: Chest: The right subclavian vein Mediport is unchanged in position with the tip terminating at the superior vena cava. Lungs exhibit mild groundglass opacification. There is no mediastinal or hilar lymphadenopathy. The heart is grossly normal in appearance. Abdomen & Pelvis: Again seen are innumerable low-attenuation liver lesions. The largest is a conglomeration of lesions in the right lobe of the liver measuring approximately 6.2 x 6.6 cm, previously 5.9 x 6.1 cm. The spleen, pancreas and adrenal glands are grossly normal in appearance. The gallbladder is normal. The kidneys are normal in appearance without solid focal mass, calcification or signs of hydronephrosis. The renal cortices enhance promptly and symmetrically on arterial phase imaging. A Mcbride catheter is noted in the urinary bladder. Evaluation of the gastrointestinal tract is limited without oral contrast. The small and large bowel are not distended. A large pericaval lymph node measuring 3.4 x 4 cm (axial image 123) appears similar to the previous CT examination. There are at least 2 enlarged celiac lymph nodes measuring 1.5 and 1.7 cm in short axis diameter (image 105 and 98). The pelvic viscera is normal in appearance. There is a new compression deformity of the T12 vertebral body (sagittal image 71). Degenerative changes are seen at other levels unchanged from the prior CT examinations. IMPRESSION: 1. Interval appearance of diffuse groundglass opacification in the lungs could be due to mild pulmonary edema. 2. There is a new compression deformity at the T12 vertebral body without retropulsion of fragments that was not seen on the July 25, 2016 CT examination and was only partially visualized on the February 27, 2017 CT examination. 3. The type B aortic dissection extending as far as the right external iliac artery appears unchanged when compared to the 02/27/2017 and 07/25/2016 CT examinations. 4. Aneurysmal dilatation of the thoracic aorta is unchanged since the February 27, 2017 CT examination. 5. Innumerable metastases in the liver as well as pericaval lymph nodes are similar in appearance to the February 27, 2017 CT examination. 6. Additional chronic, degenerative and iatrogenic findings described in body the report.
--- NOTE | 2017-03-29 11:24 | HP ---
CC: Dr. Flores; Dr. Cho * HISTORY AND PHYSICAL: DATE OF ADMISSION: 03/29/17 TIME OF MY EVALUATION: 1:00 a.m. PRIMARY CARE PROVIDER: Dr. Erik Flores CMA. ONCOLOGIST: Dr. Cho. CHIEF COMPLAINT: Altered mental status, brought in by ambulance. HISTORY OF PRESENT ILLNESS: Ms. Johnston is a 71-year-old female with an altered mental status since the evening of 03/28/17. At approximately 8:30 p.m., the patient had a friend who alerted EMS because the patient was found by her on the ground unresponsive and sweaty. The patient was found in the field with a blood sugar of 121, was tachycardic at approximately 130 beats per minute and she was tachypneic. There was originally a report of prior dialysis and end- stage renal disease, but this was an error; she does not have CRF. The patient was brought into the hospital and was triaged with a normal temperature of 97.3 , a pulse rate of 150 (sinus rhythm), and respirations in the mid to high 20s. Oxygen saturation 99% on room air and a very elevated blood pressure at 230/ 120. A stat head CT was done, which did not show any intracranial hemorrhage, but did show mastoiditis bilaterally. The patient was treated with antibiotics following a white blood cell count value of 26.5 with 95% neutrophils raising the concern for an infectious etiology to her presentation. Again, the head CT did show new severe mastoiditis and that guided antibiotic choice. The patient's blood pressure was controlled with IV hydralazine and IV labetalol in the emergency room and this did improve her pressures into the high 100 systolics, but did not resolve that issue. The patient herself could not give any meaningful history. The patient was moving randomly and not demonstrating focal weakness. There was a known history of aortic dissection based on the review of her records and there was reported abdominal pain prior to today's event and so a CT of the chest and abdomen was also done, which informally shows no change in the known aortic dissection that will be described below. The patient is being placed in the ICU as she has a very altered mental status and hemodynamic lability. PAST MEDICAL HISTORY: 1. Metastatic colon cancer, currently on chemotherapy with fluorouracil status post multiple doses - specifically last dose unknown. 2. History of aortic dissection in 2014 - stable on CT angiography studies today. 3. GERD. 4. Hypertension. 5. History of PE - not on anticoagulation currently. 6. Bunionectomy. OUTPATIENT MEDICATIONS: Reconciliation underway, but includes: 1. Vitamin C 500 mg by mouth daily. 2. Vitamin D 400 units by mouth daily. 3. Vitamin B12 1000 micrograms by mouth daily. 4. Diltiazem 60 mg by mouth twice daily. 5. Fluorouracil 5000 mg IV every 2 weeks (chemotherapy). 6. [place] 5/325 mg strength one tablet by mouth every 6 hours as needed for pain. 7. Ketorolac ophthalmic solution 0.5% strength one drop applied daily. 8. Labetalol 200 mg by mouth twice daily. 9. Multivitamin/minerals one tablet by mouth once daily. 10. Ofloxacin 0.3% otic solution 10 drops to right ear twice daily. 11. Ondansetron/Zofran 4 mg by mouth every 4 hours p.r.n. nausea. 12. Polyethylene glycol 17 g by mouth daily. 13. Prednisolone 1% ophthalmic solution one drop twice daily. 14. Compazine 10 mg by mouth four times daily as needed for nausea. 15. Tramadol 50 mg by mouth every 6 hours p.r.n. pain. ALLERGIES: AMOXICILLIN. FAMILY HISTORY: Significant for mother with aneurysm and father with peripheral vascular disease and a maternal aunt with breast cancer. SOCIAL HISTORY: The patient is a former 20 year a pack smoker, but quit in 2014. She denies alcohol intake at a prior admission. Occasional marijuana use noted. No history of alcohol use to suggest an alcohol withdrawal. REVIEW OF SYSTEMS: A review of 14 systems was accomplished and is negative except for that which is noted in the HPI and Past Medical History. PHYSICAL EXAMINATION VITAL SIGNS: On admission, temperature 98.6 degrees Fahrenheit, pulse rate is ranging between 110 and 120 beats per minute after initial control in the emergency room. Respirations are mid-to-high 20s and often labored. Oxygen saturation is high 90s on room air or small amounts of oxygen. Blood pressure is extremely elevated with initial pressures 229/126. She has later come up to similar pressures again, but does respond to IV agents. HEENT: Normocephalic atraumatic. She is currently unresponsive. Her pupils are equal and round and reactive. CHEST: Lungs are clear to auscultation anteriorly bilaterally. Pacemaker in situ on right. HEART: Tachycardic with no murmurs appreciated. ABDOMEN: Obese, soft, and nontender. NEUROLOGIC: I cannot have a cooperative neurologic exam although she does move her extremities equally. PSYCH: Unable to assess secondary to altered sensorium EXTREMITIES: Warm, well perfused. Normal muscle mass. No edema. DIAGNOSTIC STUDIES/LAB DATA: Admission data: The patient had a CTA chest abdomen and pelvis with a lower extremity runoff and this showed a stable descending thoracic aortic dissection. There was a 4.6 cm ascending aortic aneurysm and a 3.5 cm descending thoracic aortic aneurysm with the abdominal aortic dissection extended to both common iliac arteries, the right external artery, the superior mesenteric artery and the right renal artery ostium unclear if changed. There were multiple new hepatic lesions likely representing metastases and a large portacaval node. It is likely a metastasis and a small stable left adrenal nodule may be an adenoma. I note that there was a report to the ED doctor that despite the wording above, that the dissection did indeed appear similar to previous studies. Separately, the patient had a CT head, which showed no acute intracranial pathology, but new severe bilateral mastoiditis. Admission labs included a white blood cell count of 26.5 with 90% neutrophils, hemoglobin 10.1, compared to the most previous value at 8.3 the day prior (ER visit). She was 6.3 several days before that status post transfusion for epistaxis I believe. Platelets 413. INR elevated at 1.43 (not on Coumadin). Blood gas significant for arterial pH 7.53/pCO2 26/pO2 104. Blood chemistries were generally unremarkable, say the creatinine of 1.24. This is at or below her baseline. I note earlier in February she was 1.4 on the 03/19/17. She was as high as 1.79 back in late January 2017. Her initial lactic acid was 4.2, her alkaline phosphatase is 162, AST and ALT are 34 and 22, respectively, total protein 9.8 and albumin 2.4. Urinalysis showed 2+ blood, 1+ protein, 3+ rbc's, 2+glucose. Toxicology negative for any illicit substance and negative for serum alcohol. IMPRESSION: Ms. Johnston is a 71-year-old female who comes in with an acute alteration in her level of consciousness. She has multiple significant lab abnormalities including a white blood cell count of almost 30,000 with a profound left shift. She obviously has an encephalopathy of some sort. She has malignant hypertension. She has a concerning medical history of a metastatic colon cancer primarily to liver undergoing chemo, which makes her vulnerable to a host of infections. Finally, she has got evidence on head CT of bilateral mastoiditis. One possibility is severe hypertensive encephalopathy. The patient is on fairly substantial outpatient blood pressure control and she is being dosed with IV hydralazine, IV labetalol and now IV Cardizem. The patient is going to target a systolic blood pressure in the 160 to 180 not to over correct her and hopefully this will lead to a correction. The patient did have a lumbar puncture attempted by the ED attending, but this failed secondary to severe scoliosis and difficult anatomy, but the patient was dosed with IV vancomycin and IV Zosyn to cover [employer] infections like meningitis, but also the bilateral mastoiditis. If sufficiently severe, mastoiditis could explain her altered mental status and sepsis. This would also explain the patient's elevated white blood cell count. She may have an endovascular infections that has simply not declared itself. Blood cultures were drawn and are pending in the labs. The patient has an elevated lactic acid, which could be evidence of hypoperfusion and again, blood cultures will be followed closely Toxicology as an explanation is less likely given the negative tox screen and no history to this effect. Another possibility is hepatic encephalopathy though an ammonia level checked in the emergency room was not sufficiently high to explain this, but with liver metastases that would be another possibility. Could this be an oncologic emergency like diffuse brain metastases that are not visible on CT brain? (i.e., carcinomatous meningitis or something to that effect ). We will consider other imaging modalities or tests to explore this when patient is hemodynamically stable. Consider anesthesia support for a successful lumbar puncture, which may be necessary if this remains high in the differential. At this point, the patient is full code. She is stable though tenuous. She is being placed in the ICU. Further decision to be based on her clinical progress. Medication reconciliation efforts are ongoing. TIME SPENT: Total time taken to admit Ms. Johnston was 75 minutes, greater than half that time spent at the bedside conducting my history and physical examination and communicating with the ED staff, later the ICU staff and managing her blood pressure and agitation at several points throughout the first 12 hours of hospitalization. [id number]/[facility] #: [id number] GEORGINA
--- NOTE | 2017-03-29 14:01 | PN ---
Critical Care Services: 71 y/o female with stage IV colon CA admitted last night with altered mental status that likely represents pneumococcal meningitis (i.e., blood cultures growing pneumococcus and CSF shows gram-positive organisms, a high CSF protein, and CSF glucose < 10). Current Rx is high-dose ceftriaxone and vancomycin ( pending sensitivities). CSF also shows gram-negative coccobacilli, which could be Hemophilus influenzae (and should be covered by ceftriaxone). Vital Signs: Temp Pulse Resp BP SpO2 FiO2 96.1 F 90 16 148/79 99 2L/min Physical Exam: Gen:Eyes open but unresponsive to verbal commands. HEENT: Pupils midposition and reactive. Has dysconjugate gaze. Lungs: Clear Cardiac: No murmurs or rubs. Abdomen: Not distended. Extremities:Warm. No cyanosis or edema. Fluid Balance (Past 24 Hours): 03/29/17 06:59 Input (IVs) 3000 Output Total 3000 Balance 0 Weight 155 lb Output: Mcbride 3000 Labs: 03/29/17 03/29/17 03/29/17 03:15 06:45 06:45 WBC 22.3 Hgb 10.9 L Hct 32 L Plt Count 277 Sodium 136 Potassium 3.4 Chloride 106 Carbon Dioxide 25 BUN 18 Creatinine 1.00 Glucose 102 H Lactic Acid 2.6 1.9 Calcium 8.8 Total Bilirubin 0.70 AST 42 ALT 21 Alkaline Phosphatase 157 Total Protein 8.2 Albumin 2.1 03/29/17 03/29/17 10:18 10:18 Fluid Source Cerebrospinal Fluid Volume 1.5 Fluid Color Blanding Fluid Appearance Cloudy Fluid WBC 434 H* Fluid RBC 305 Fluid Tot Cell Count 100 Fluid Neutrophils 89 Fluid Lymphocytes 11 CSF Cell Count Tube # 4 CSF Glucose < 10 L* CSF Total Protein 1142 H Studies: 1. Blood cultures (X2) - positive for strep pneumoniae. 2. CSF Gram's stain: 4+ neutrophils, 4+ gram-positive cocci, 4+ gram-negative coccobacilli Nutrition: None at present time. 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 CSF Gram's stain also shows coccobacillary forms consistent with H flu, so it is possible ( although less likely) that 2 microbes are involved. Plan: 1. High-dose ceftriaxone and vancomycin, with target vancomycin trough level of 20-25 mcg/mL. Will also add steroids to reduce risk of neurologic complications. 2. Wii send ID consult. Critical Care Time: 40 minutes (not including time for the lumbar puncture).
[2017-03-29] MEDS: cefTRIAXone(*) 2 GM in NS 0.9% 100 ML* 100 ML IVPB SCH (14:19)
[2017-03-29] MEDS: Vancomycin(*) 750 MG in NS 0.9% 250 ML* 250 ML IVPB SCH (16:22)
[2017-03-30] MEDS: cefTRIAXone(*) 2 GM in NS 0.9% 100 ML* 100 ML IVPB SCH ×2 (01:23→14:22)
[2017-03-30] MEDS: Vancomycin(*) 750 MG in NS 0.9% 250 ML* 250 ML IVPB SCH ×2 (02:05→15:32)
[2017-03-30] MEDS: Labetalol IV* 5 MG/ML 20 ML VIAL IVPB SCH ×4 (04:24→22:15)
[2017-03-30] MEDS: Diltiazem IV* 5 MG/ML 5 ML VIAL (for loading dose/IV Push) (25 MG) IV SLOW PU SCH ×3 (05:53→18:01)
[2017-03-30] MEDS: Artificial Tear OPHTH.OINT* 3.5 GM BOTH EYES PRN ×2 (06:15→09:16)
[2017-03-30 06:32] LABS: Hematocrit 26 % (35-47); Hemoglobin 8.7 g/dl (12.0-16.0); Mean Corpuscular HGB Conc 33 g/dl (31-36); Mean Corpuscular Hemoglobin 27 pg (27-31); Mean Corpuscular Volume 81 fL (80-97); Mean Platelet Volume 8 um3 (7.4-10.4); Platelet Count 296 10^3/ul (150-450); Red Blood Count 3.22 10^6/ul (4.0-5.4); Red Cell Distribution Width 20 % (10.5-15); White Blood Count 33.7 10^3/ul (3.5-10.8)
[2017-03-30 06:53] LABS: EGFR Non-African American 47.3 (>60)
[2017-03-30] MEDS: methylPREDNISolone 125 MG* 2 ML VIAL IV SCH (09:14)
--- NOTE | 2017-03-30 09:35 | PRO ---
PROCEDURE NOTE: DATE OF PROCEDURE: 03/29/17 PROCEDURE: Lumbar puncture. DESCRIPTION OF THE PROCEDURE: This patient is a 71-year-old female who is admitted with altered mental status and blood cultures growing gram-positive cocci. Because of the possibility of a meningitis, a lumbar puncture was performed. With the patient adequately prepped, the L5-S1 interspace was entered with a 20-gauge spinal needle and approximately 3 cc of fluid were withdrawn for analysis. The fluid was yellow in color and opaque. Fluid will be sent for Gram stain, culture, cell count, protein and glucose. The patient tolerated the procedure, and there were no apparent complications. [id number]/[facility] #: [id number] [facility]
[2017-03-30] MEDS ORDERED: LORazepam INJ* 2 MG/ML 1 ML VIAL ONE ×3 (09:40→18:40)
[2017-03-30] MEDS ORDERED: Succinylcholine* 20 MG/ML 10 ML VIAL ONE (09:53)
[2017-03-30] MEDS ORDERED: levETIRAcetam IV* 1,000 MG in NS 100 mL IVPB ONE (10:00)
[2017-03-30] MEDS ORDERED: fentaNYL* 50 MCG/ML 5 ML VIAL (250 MCG VIAL) ONE (10:02)
[2017-03-30] MEDS ORDERED: Propofol* 100 ML ONE (10:07)
[2017-03-30] MEDS ORDERED: LORazepam INJ* 2 MG/ML 1 ML VIAL IV PUSH ONE ×2 (10:20→20:00)
[2017-03-30] MEDS ORDERED: fentaNYL* 50 MCG/ML 2 ML VIAL (100 MCG VIAL) IV SLOW PU ONE (10:20)
[2017-03-30] MEDS: Propofol* 100 ML IV SCH ×2 (10:38→19:44)
--- NOTE | 2017-03-30 10:53 | RAD ---
Indication: Endotracheal tube placement. Altered mental status and sepsis. Comparison: 1027 hours exam of the same date. Technique: AP portable chest 1022 hours. Upright AP portable chest 1030 hours. Report: Endotracheal tube projects into the ostium of the RIGHT mainstem bronchus and should be pulled back approximately 3.5 cm. Subsequent exam of 1030 hours documents appropriately positioned ET tube. Tip of RIGHT chest port is at level of superior vena cava directed central. Elevated lung volumes. Minimal prominence of the interstitial markings. Negative for pleural effusion or pneumothorax. IMPRESSION: Appropriately positioned ET tube. Elevated lung volumes which may reflect obstructive lung disease. No evidence for pneumonia. Mild cardiomegaly without evidence for pulmonary edema.
[2017-03-30] MEDS ORDERED: levETIRAcetam IV* 1,000 MG in NS 0.9% 100 ML* 100 ML IVPB SCH (11:00)
--- NOTE | 2017-03-30 14:05 | PN ---
Critical Care Services: Patient remained comatose overnight and this AM had a generalized seizure, which stopped spontaneously. Patient was given ativan and keppra with no further seizure activity. Patient was also intubated (to protect the airway). Vital Signs: Temp Pulse Resp BP SpO2 FiO2 97.9 F 95 23 89/63 100 100 Physical Exam: Gen:Unresponsive (on propofol) HEENT: Corneal and pupillary reflexes absent. Lungs: Scattered rhonchi Cardiac: Carlo rhythm Extremities:Warm. No cyanosis. Neuro: No seizure activity. Fluid Balance (Past 24 Hours): 03/30/17 06:59 Intake Total 1509 Output Total 1040 Balance +469 Weight 167 lb Intake: IV Fluids 773 LR 773 IVPB 736 LR 736 Output: Mcbride 1040 Labs: 03/30/17 03/30/17 05:54 05:54 WBC 33.7 Hgb 8.7 Hct 26 Plt Count 296 Sodium 137 Potassium 4.4 Chloride 110 Carbon Dioxide 22 BUN 29 Creatinine 1.14 Glucose 107 Calcium 9.2 Total Bilirubin 0.40 AST 62 H ALT 25 Alkaline Phosphatase 146 Total Protein 8.4 Albumin 2.0 Studies: Strep pneumoniae in all blood cultures. Nutrition: None Impression: Clinical condition is deteriorating. Loss of corneal and pupillary light reflexes is an ominous sign. Plan: 1. Anticonvulsant Rx with keppra (1 gm q 12h). 2. Continue ceftriaxone and vancomycin 3. Spoke with the son (healthcare proxy) this AM and he is coming up from [facility] - will speak to him about end-of-life decisions, as prognosis here is very poor. Critical Care Time: 45 minutes (not including time for intubation).
[2017-03-30] MEDS ORDERED: Vancomycin Trough Check NOTE FOLLOW UP ONE (15:00)
[2017-03-30] MEDS ORDERED: levETIRAcetam 500 MG IVPREMIX* 500 MG/100 ML BAG IV ONE (20:00)
--- NOTE | 2017-03-30 22:08 | PRO ---
PROCEDURE REPORT: DATE OF PROCEDURE: 03/30/17 PROCEDURE: Endotracheal intubation. INDICATION: This patient is a 71-year-old female who was admitted with a pneumococcal meningitis and has had persistent coma since admission and this morning had a grand mal seizure and because of conc erns about protecting the airway, a semi-elective endotracheal intubation was performed. PROCEDURE IN DETAIL: The patient was pre-sedated with 250 mcg of fentanyl and paralyzed with 100 mg of succinylcholine. A size 8 endotracheal tube was inserted into the airway under videoscopic contro l and the airway location was verified by CO2 detection. Tube position was verified by chest x-ray. The patient tolerated the procedure and there were no apparent complications. [id number]/[facility] #: [id number]
[2017-03-31] MEDS ORDERED: levETIRAcetam IV* 1,500 MG in NS 0.9% 100 ML* 100 ML IVPB SCH ×2
[2017-03-31] MEDS: Propofol* 100 ML IV SCH ×5 (00:06→23:05)
[2017-03-31] MEDS: Diltiazem IV* 5 MG/ML 5 ML VIAL (for loading dose/IV Push) (25 MG) IV SLOW PU SCH ×5 (00:12→23:42)
[2017-03-31] MEDS: cefTRIAXone(*) 2 GM in NS 0.9% 100 ML* 100 ML IVPB SCH ×2 (00:50→14:14)
[2017-03-31] MEDS ORDERED: Vancomycin(*) 500 MG in NS 0.9% 250 ML* 250 ML IVPB SCH (04:00)
[2017-03-31] MEDS ORDERED: Fosphenytoin(*) 1,500 MG in NS 0.9% 100 ML* 100 ML IVPB ONE ×2 (04:00→16:09)
[2017-03-31] MEDS: Labetalol IV* 5 MG/ML 20 ML VIAL IVPB SCH ×4 (04:15→22:17)
[2017-03-31] MEDS ORDERED: LORazepam INJ* 2 MG/ML 1 ML VIAL IV PUSH ONE (06:10)
[2017-03-31] MEDS ORDERED: LORazepam INJ* 2 MG/ML 1 ML VIAL ONE (06:23)
[2017-03-31] MEDS ORDERED: VALPROIC ACID IVPB ONE (08:15)
[2017-03-31] MEDS ORDERED: NS 0.9% IVPB ONE ×2 (08:15→11:00)
[2017-03-31 08:51] LABS: EGFR Non-African American 18.3 (>60)
[2017-03-31] MEDS ORDERED: Midazolam* 1 MG/ML 10 ML VIAL (10 MG) IV ONE (09:00)
[2017-03-31] MEDS: Midazolam IV for DRIP 100 MG in NS 0.9% IV SCH ×2 (09:13→09:24)
[2017-03-31 09:19] LABS: ABS Basophils 0.1 10^3/ul (0-0.2); ABS Eosinophils 0 10^3/ul (0-0.6); ABS Lymphocytes 0.7 10^3/ul (1.0-4.8); ABS Monocytes 1.5 10^3/ul (0-0.8); ABS Neutrophils 28.1 10^3/ul (1.5-7.7); ABS Nucleated RBC 0.02 10^3/ul; Eosinophil % 0.1 % (0-6); Hematocrit 21 % (35-47); Hemoglobin 7.2 g/dl (12.0-16.0); Lymphocyte % 2.3 % (25-47); Mean Corpuscular HGB Conc 34 g/dl (31-36); Mean Corpuscular Hemoglobin 27 pg (27-31); Mean Corpuscular Volume 81 fL (80-97); Mean Platelet Volume 8 um3 (7.4-10.4); Nucleated Red Blood Cells % 0.1; Platelet Count 244 10^3/ul (150-450); Red Blood Count 2.64 10^6/ul (4.0-5.4); Red Cell Distribution Width 21 % (10.5-15); White Blood Count 30.5 10^3/ul (3.5-10.8)
[2017-03-31] MEDS ORDERED: Midazolam IV for DRIP 100 MG in NS 0.9% IV SCH (10:00)
[2017-03-31] MEDS ORDERED: Midazolam PREMIX BAG 1 MG/ML* 100 MG/100 ML BAG IV ONE ×2 (10:09→10:15)
[2017-03-31] MEDS: methylPREDNISolone 125 MG* 2 ML VIAL IV SCH (10:14)
[2017-03-31] MEDS ORDERED: Norepinephrine VIAL* 1 MG/ML 4 ML VIAL ONE (10:51)
[2017-03-31] MEDS ORDERED: Norepinephrine 8 mg in 500 mL NS (Pharmacy Admixed Drip) IV SCH (11:00)
[2017-03-31] MEDS: MIDAZOLAM IV SCH ×7 (11:00→23:38)
[2017-03-31] MEDS: [UNRECOGNIZED DRUG - OTHER] IV SCH ×7 (11:00→23:38)
[2017-03-31] MEDS ORDERED: PHENYTOIN IVPB ONE (11:00)
[2017-03-31] MEDS: NS 0.9% IV SCH ×7 (11:00→23:38)
[2017-03-31] MEDS: levETIRAcetam IV* 1,000 MG in NS 0.9% 100 ML* 100 ML IVPB SCH ×2 (13:40→23:42)
[2017-03-31] MEDS ORDERED: Vancomycin(*) 500 MG in D5W 250 ML BAG* 250 ML IVPB SCH (16:00)
[2017-03-31] MEDS: Fosphenytoin(*) 100 MG/2 ML VIAL IV SLOW PU SCH ×2 (16:02→21:09)
[2017-03-31] MEDS: Valproic Acid IV(*) 500 MG in NS 0.9% 100 ML* 100 ML IVPB SCH (16:17)
--- NOTE | 2017-03-31 16:45 | PN ---
Critical Care Services: Major problem today has been status epilepticus - requiring keppra (1.5 gm q 12h ), fosphenytoin (load 1500 mg, repeat 700 mg, then 100 mg TID), propofol (30 mcg /kg/min) and midazolam (2 mg/kg/hr). Neuro service following, and continuous EEG monitoring in place. Vital Signs: Temp Pulse Resp BP SpO2 FiO2 93.9 F 63 23 100/61 100 30 Physical Exam: Gen:Unresponsive HEENT: No corneal or pupillary light reflexes. Lungs: Clear Extremities: No cyanosis or edema Fluid Balance (Past 24 Hours): 03/31/17 06:59 Intake Total 2761 Output Total 325 Balance +2436 Weight 165 lb Intake: IV Fluids 2400 LR 2004 NS (0.9%) 395 valproic acid IVPB 120 LR fosphenytoin 120 Medicated IV 241 CC - Norepinephrine/ Levophed CC - Propofol/Diprivan 241 Output: Mcbride 325 Labs: 03/31/17 08:04 WBC 30.5 H Hgb 7.2 Hct 21 L Plt Count 244 03/31/17 03/31/17 08:04 14:24 Sodium 137 Potassium 5.0 Chloride 109 Carbon Dioxide 20 BUN 60 Creatinine 2.60 Glucose 136 H Calcium 8.7 Phenytoin 9.9 Valproic Acid 98.0 Studies: Continuous EEG monitoring Nutrition: None (other than propofol infusion) Impression: Pneumococcal meningitis with refractory status epilepticus - prognosis very poor. Plan: Continue present management, with input from Neurology service. Will speak with patient's son (hopefully tonight) about end-of-life decisions. Critical Care Time: 45 minutes
--- NOTE | 2017-03-31 20:56 | CONS ---
NEUROLOGY CONSULTATION: DATE OF CONSULT: 03/31/17 LOCATION: The patient is in the ICU. REQUESTING PHYSICIAN: Luis Leal MD. 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 HISTORY OF PRESENT ILLNESS: Holli Johnston is a 71-year-old -[place] woman with a history of somewhat recently diagnosed stage 4 colon cancer, on Fluorouracil chemotherapy, as well as history of hypertension and aortic dissection in 2014, who came into the emergency department on the evening of when her friend found her unresponsive at home. The patient's friend who found her was present in the room on my evaluation today and reports that she had last spoken with the patient on the evening of 03/27/17. At that point, she was complaining of some abdominal cramping. The following day, on 03/28/17 , around noon, the friend tried to contact Mrs. Johnston and was unable to get her on the phone. The friend had to go to work and then stopped by her home around 8:30 and at that point found her unresponsive in her bedroom. She was initially very tachycardic and very hypertensive in the emergency department. She was also tachypneic, but was maintaining her airway. She was given multiple doses of medication to try and control her blood pressure, but found it to be refractory. Her white count was very elevated and she was placed on initial antibiotics, vancomycin and Zosyn. A lumbar puncture was attempted in the emergency room when no clear source of infection was found, but this was unsuccessful secondary to scoliosis. Subsequently, Dr. Leal obtained the lumbar puncture and the results are summarized below. Of note, her head CT showed changes consistent with bilateral mastoiditis, which was a change from a CT scan a few months ago. Yesterday morning, the patient reportedly had a generalized seizure, but Dr. Leal reports that the left side was more involved. She was initially treated with Ativan as well as levetiracetam. He then intubated her for airway protection given the need for multiple doses of Ativan and the fact that her overall clinical condition was deteriorating. Since then, she has continued to have focal seizures on the left consisting of left facial twitching, left head twitching, and left arm twitching as well. Dr. Leal added on additional medications including fosphenytoin 1500 mg, which was given at 4 a.m. this morning as well as valproic acid 3 g which was given at 8:30 this morning. She was also given 1500 mg of levetiracetam just after midnight today. She was on a propofol drip which has been increased to the current dose of 40 mcg/kg/min. I spoke with Dr. Leal this morning about the patient and, at that point, midazolam drip was also initiated, which is now being dosed based on weight at 150 mg/hour. After a Phenytoin level came back at 11, she was given an additional 700 mg of Phenytoin IV at approximately 11 a.m. this morning. She has been hooked up to long-term video EEG monitoring and despite all the above treatments, she continues to have focal left-sided seizure activity, which corresponds with bursts of epileptiform activity arising from the right hemisphere. Neurology involvement was requested secondary to refractory status epilepticus. PAST MEDICAL HISTORY: Obtained primarily from the chart, but also discussion with the friend at the bedside, and includes: 1. Metastatic colon cancer. 2. Aortic dissection in 2014. 3. GERD. 4. Hypertension. 5. History of PE, not on anticoagulation. 6. Bunionectomy. HOME MEDICATIONS: 1. Tramadol 50 mg q.6 hours p.r.n. 2. Pred Forte drops. 3. Compazine 10 mg q.i.d. p.r.n. 4. MiraLAX as needed. 5. Zofran 4 mg q.4 hours p.r.n. 6. Ofloxacin drops to the right ear twice daily. 7. Multivitamins daily. 8. Labetalol 200 mg twice daily. 9. Ketorolac drops. 10. [place] q.6 hours as needed. 11. Fluorouracil every 14 days. 12. Cardizem 60 mg twice daily. 13. Vitamin B12 1000 mcg daily. 14. Vitamin D 400 units daily. 15. Vitamin C 500 mg daily. HOSPITAL MEDICATIONS: 1. Ceftriaxone 2 g q.12 hours. 2. Diltiazem 20 mg q.6 hours (this has been held secondary to hypotension). 3. Hydralazine 20 mg q.4 hours p.r.n., last given on 03/29/17. 4. Lactated Ringer's. 5. Levetiracetam 1000 mg q.12 hours. 6. Methylprednisolone 60 mg daily. 7. Midazolam 150 mg per hour. 8. Morphine 2 mg q.4 hours p.r.n. pain. 9. Propofol 40 mcg/kg/minute. ALLERGIES: AMOXICILLIN causes itching. FAMILY HISTORY: Noncontributory at this time. SOCIAL HISTORY: She is a former smoker, quit in 2014. No reported use of alcohol prior to admission. The records indicates she occasionally uses marijuana. REVIEW OF SYSTEMS: Could not be completed secondary to the patient's condition. PHYSICAL EXAMINATION: Vital Signs: Temperature 94.5 by Mcbride probe. Blood pressure is 94/59, on one pressor. Heart rate is 66, oxygen saturation is 99% on the ventilator. On general examination, she is intubated and unresponsive. Her skin is warm. Her heart is in regular rate and rhythm. She has coarse breath sounds. On neurologic examination, she is unresponsive to voice and pain. On cranial nerve examination, she has absent pupillary reflexes. Her eyes are midline, but VORs are negative. There is no corneal reflex. Nursing reports absence of gag or cough. There is no obvious facial asymmetry with her ET tube in place. On motor examination, she has reduced tone in all 4 extremities. She has intermittent head twitching to the left, left facial clonus, and left arm clonic activity which corresponds with epileptiform activity on the EEG. Otherwise, there is no movement and no withdrawal to noxious stimulation. Her toes are mute. DIAGNOSTIC STUDIES/LAB DATA: CBC today shows a white count of 30.5, hematocrit 21, hemoglobin 7.2, platelet count of 244. She has 92% neutrophils. On admission, she had 14% bands on 03/29/17. Her chemistry today is notable for doubling of her creatinine to 2.6 from 1.14 yesterday. Her glucose is 136. BUN to creatinine ratio 23.1. Total protein 8.4 yesterday. Albumin to globulin is 6.4. AST yesterday was 62, ALT 25, alkaline phosphatase 146. Her sodium is normal. Urinalysis showed no evidence for infection. Her lumbar puncture showed 434 white cells, 89% neutrophils, 305 rbc's. Total protein is very elevated at 1142 and glucose of less than 10. Her toxicology screen was negative. Her brain CT obtained on admission, which was done noncontrast, was personally reviewed and there is no obvious intraparenchymal abnormality. There are changes in the mastoid air cells bilaterally consistent with mastoiditis. Her continuous EEG was reviewed at the bedside and shows a burst suppression pattern. During bursts of activity, there is epileptiform activity primarily over the right parasagittal region, which corresponds with the focal left-sided clonic activity noted. She does not have any bursts of activity which do not include epileptiform activity. CSF Gram-stain showed 4+ neutrophils, 4+ gram negative cocci bacilli and 4+ gram positive cocci. This is growing out strep pneumoniae. Her blood cultures have all been positive for strep pneumoniae as well. 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 She continues to have evidence of electroclinical seizure activity despite being on 2 sedating drips and loaded with 3 antiseizure medications. At this point, she is experiencing acute renal failure as well as hypotension, which in part may be secondary to the medications she is being given for her seizures. It is possible that she could have an abscess or possibly a metastatic focus giving rise to these focal seizures in the right hemisphere. I spoke with Dr. Leal about the utility of further imaging and at this point it would not likely twisting frame changer to get additional imaging which might reveal either of these two things, because she is not necessarily stable enough to have any type of surgery. At this point, we will continue with the current doses of propofol and midazolam. I will follow up with another level of her fosphenytoin as well as valproic acid level now. Her renal function at this point dictates that we should probably go down on the dose of the levetiracetam by half, given that her creatinine clearance is about 10 at this point. I will discuss that with Dr. Leal. We discussed further escalating her sedating medications such as with phenobarbital in an attempt to completely suppress her EEG activity, but at this point, given her overall clinical picture, it is unlikely that this will change the ultimate outcome. We will start maintenance therapy for the fosphenytoin as well as the valproic acid, and we will continue to dose these based on levels. I understand that her son is coming in later today to further discuss goals of care in this extremely sick woman. Thank you for involving me in her care. [id number]/[facility] #: [id number] [facility] STANLEY CHILDREN'S HOSPITALRachid
[2017-03-31] MEDS: Norepinephrine 8 mg in 500 mL NS (Pharmacy Admixed Drip) IV SCH ×2 (21:38→22:24)
[2017-03-31] MEDS: Chlorhexidine MOUTHWASH 0.12%* 15 ML UDC TOPICAL SCH (23:42)
[2017-04-01] MEDS: Valproic Acid IV(*) 500 MG in NS 0.9% 100 ML* 100 ML IVPB SCH ×2 (00:17→08:19)
[2017-04-01] MEDS: cefTRIAXone(*) 2 GM in NS 0.9% 100 ML* 100 ML IVPB SCH (00:59)
[2017-04-01] MEDS: [UNRECOGNIZED DRUG - OTHER] IV SCH ×8 (01:48→15:08)
[2017-04-01] MEDS: MIDAZOLAM IV SCH ×8 (01:48→15:08)
[2017-04-01] MEDS: NS 0.9% IV SCH ×8 (01:48→15:08)
[2017-04-01] MEDS: Labetalol IV* 5 MG/ML 20 ML VIAL IVPB SCH ×2 (04:07→10:03)
[2017-04-01] MEDS: Chlorhexidine MOUTHWASH 0.12%* 15 ML UDC TOPICAL SCH ×3 (04:20→15:11)
[2017-04-01] MEDS: Diltiazem IV* 5 MG/ML 5 ML VIAL (for loading dose/IV Push) (25 MG) IV SLOW PU SCH ×2 (05:59→12:49)
[2017-04-01] MEDS ORDERED: Vancomycin Random Level* NOTE FOLLOW UP ONE (06:00)
[2017-04-01 06:43] LABS: EGFR Non-African American 15.2 (>60)
[2017-04-01] MEDS ORDERED: Calcium Gluconate INJ* 1 GM in NS 0.9% 50 ML* 50 ML IVPB ONE (06:54)
--- NOTE | 2017-04-01 09:15 | EEG ---
CARE HOME VIDEO/EEG MONITORING - Monitoring Monitoring Start Date: 03/31/17 Current Monitoring Session: 03/31/17 at 09:35 to 04/01/17 at 11:25 EEG Clinical Indication: Holli Johnston is a 71 year old woman with a history of stage 4 metastatic colon cancer on fluorouracil who presented to the ER on 03/28 after a friend found her down and unresponsive in her home. The friend began trying to get in touch with her around noon on 03/28 after last speaking with her the evening before and then stopped by her home after she got out of work at 8:30pm when there was no answer. She was brought to the ER and there was concern for meningitis given her unresponsiveness, high white count and new evidence of bilateral mastoiditis on CT scan. On 03/30 she began having seizures which were not controlled with levetiracetam and propofol as well as fosphenytoin and so LTM was requested to follow the course of treatment for refractory status epilepticus. Introduction: INTRODUCTION: The EEG was monitored from 21 scalp electrodes. Nineteen electrodes consisted of the standard parasagittal, temporal and midline leads of the International 10 -20 system. In addition, special electrodes T1 and T2 were placed. EEG data were recorded on an Betable system with simultaneous MPEG-4 digital video recording of patient behavior. EEG recording was in a monopolar montage with all electrodes referenced to FCz. Significant behavioral events were signaled by an event button, or putative electrical seizure events were detected by a computer program. All EEG data were reviewed in their entirety on a monitor with reconstruction of montages and adjustments of sensitivity and filtering. Simultaneous patient behavior was viewed on an adjacent monitor and correlated with the EEG. - Medications Active Medications: Albuterol (Ventolin 2.5 Mg/3 Ml Neb.Guera*) 2.5 mg INH [id number] AWAKE PRN PRN Reason: sob/wheezing Artificial Tears (Lacrilube Oint*) 1 applic BOTH EYES Q2H PRN PRN Reason: DRYNESS/INABILITY-PROTECT EYES Last Admin: 03/30/17 09:16 Dose: 1 applic Chlorhexidine Gluconate (Peridex Mouth Wash 0.12%*) 15 ml TOPICAL Q4H [facility] Last Admin: 04/01/17 04:20 Dose: 15 ml Diltiazem HCl (Diltiazem Iv*) 20 mg IV SLOW PU Q6HR [facility] Last Admin: 04/01/17 05:59 Dose: Not Given Fosphenytoin Sodium (Cerebyx(*)) 100 mg IV SLOW PU TID [facility] Last Admin: 03/31/17 21:09 Dose: 100 mg Hydralazine HCl (Apresoline Iv*) 20 mg IV SLOW PU Q4H PRN PRN Reason: SBP >180 Last Admin: 03/29/17 07:51 Dose: 20 mg Ceftriaxone Sodium 2 gm/ (Sodium Chloride) 100 mls @ 200 mls/hr IVPB Q12H [facility] Last Admin: 04/01/17 00:59 Dose: 200 mls/hr Lactated Ringer's (Lactated Ringers 1000 Ml Bag*) 1,000 mls @ 75 mls/hr IV PER RATE [facility] Last Admin: 04/01/17 08:11 Dose: 75 mls/hr Propofol (Diprivan*) 100 mls @ 9.12 mls/hr IV .(Initial Rate) SANDRA; 20 MCG/KG/ MIN PRN Reason: Protocol Last Admin: 03/31/17 23:05 Dose: 13.7 mls/hr Midazolam HCl 300 mg/ Sodium (Chloride) 300 mls @ 150 mls/hr IV Q2H SANDRA; 150 MG /HR PRN Reason: Protocol Last Admin: 04/01/17 08:25 Dose: 150 mls/hr Levetiracetam 1,000 mg/ Sodium (Chloride) 110 mls @ 440 mls/hr IVPB 0000,1200 [facility] Last Admin: 03/31/17 23:42 Dose: 440 mls/hr Norepinephrine Bitartrate 8 mg (/ Sodium Chloride) 500 mls @ 7.5 mls/hr IV .PER RATE SANDRA; 2 MCG/MIN PRN Reason: Protocol Last Admin: 03/31/17 22:24 Dose: 33.8 mls/hr Valproic Acid 500 mg/ Sodium (Chloride) 105 mls @ 210 mls/hr IVPB Q8H [facility] Last Admin: 04/01/17 08:19 Dose: 210 mls/hr Labetalol HCl (Trandate Iv*) 20 mg IVPB Q6H [facility] Last Admin: 04/01/17 04:07 Dose: Not Given Methylprednisolone Sodium Succinate (Solu-Medrol 125mg *) 60 mg IV DAILY [facility] Last Admin: 03/31/17 10:14 Dose: 60 mg Morphine Sulfate (Morphine Inj (Syringe)*) 2 mg IV Q4H PRN PRN Reason: PAIN Last Admin: 03/30/17 05:53 Dose: 2 mg Pharmacy Consult (Vancomycin Per Pharmacy*) 1 note FOLLOW UP . PRN PRN Reason: PER PROTOCOL - Description Background: The background lacked the organization expected of the typical waking or sleep background. Instead, there was a burst suppression with periods of profound suppression interrupted by bursts of epileptiform activity over the right parasagittal region, maximal at CZ and C4. The periods of suppression were variable throughout the recording, and depended greatly on the dose of propofol administered. At times, periods of diffuse suppression lasted as little as 2 seconds while at other times the EEG was characterized by profound suppression lasting many minutes with no bursts of cerebral activity evident. The latter was particularly true toward the end of the recording. Bursts of activity were generally characterized by low voltage, mixed frequency activity with superimposed epileptiform activity over the right parasagittal region. Bursts of activity lasted 4 seconds at most. Superimposed spindle-like waveforms were better seen over the left hemisphere at times. Frequently, bursts were seen asymmetrically over the right hemisphere only, with no clear cerebral activity underlying the motion artifact associated with head jerking, as described below. Intericatal Epileptiform Activity: During bursts of activity, epileptiform activity consisting of spike and sometimes polyspike waveforms was noted with maximal expression at C4 and CZ with a field to P4. Activity occurred sometimes as single discharges while at other times was seen to occur up to 5 Hz for several seconds. Increased doses of propofol abolished this activity but any attempts to titrate down on the dose resulted in reemergence of epileptiform activity. Ictal Activity: With the vast majority of epileptiform activity described above, there was corresponding clonic and myoclonic movements of the head to the left, left face and left arm which was time-locked to the epileptiform activity. - Impression Impression: This is a markedly abnormal long-term video EEG. The background demonstrates a burst-suppression pattern and bursts of activity were frequently asymmetrically seen over the right hemisphere, consisting of epileptiform activity with corresponding clinical behavior of clonic and myoclonic movements of the head to the left, left face and arm. This activity was suppressible with increased propofol. These findings are consistent with refractory status epilepticus and a severe, global encephalopathy with increased epileptic potential and electroclinical seizures arising from the right parasagittal region.
--- NOTE | 2017-04-01 09:43 | PN ---
Progress Note - Progress Note Date of Service: 04/01/17 Note: CRITICAL CARE MEDICINE Date: 04/01/2017 Time: 815 SUBJECTIVE: Patient seen and examined. PHYSICAL EXAM: Vital Signs: Reviewed. Neurologic: coma; held propofol and no pupillary response, dysconjugate, no gag , cough but able to trigger vent and having epileptiform discharges about every 10 seconds with associated brisk myoclonus on left face. HEENT: Sclera anicteric. Trachea midline. ett at 23cm. Cardiovascular: distant, jaz, S1 S2 Respiratory: coarse but clear bl Abdomen: Soft, obese, nt. Extremities: Warm. dep edema Access: port, piv LABS: Reviewed. IMAGING: Reviewed. MEDICATIONS: Reviewed. ASSESSMENT: 71 F with severe sepsis sec to pneumoncoccal meningitis with bactermia and refractory status epilepticus and now worsening anuric renal failure. Stage IV colon Ca PLAN: Neurologic: no ability it seems to alleviated high dose sedatives, aeds. following levels. cEEG. agree, prognosis is dismal and further attempts at imaging towards surgical needs not fruitful but may need for prognosis perhaps. continued burst suppression as able. appreciate neuro follow up. Cardiovascular: Perfusing and vol status holding for now however needs further central access and high chance for vasopressor needs although these again would be unfruitful if required given her condition. complication potentials, morbidity and mortality very high. Respiratory: mario vent. cmv. vent bundle. Gastrointestinal: place ogt. trophic tf. sup Renal/Metabolic: anuric failure ominous sign. maintain perfusion and avoid toxins. Infectious Disease: on C3 with susc cx. can likely dc vanco, certainly in light of renal failure. Hematology: hb consumption. plt holding. Endocrine: on steroids. glu ok. neuro glu ?? allow serum to stay up. Musculoskeletal: bedrest; skin precautions. Psych/Social: will d/w family. outcome grim. Supportive and preventative care as ordered. SUP: H2 VTE prophylaxis: heparin Mcbride catheter given critical illness, monitoring needs for accurate assessment of BARBARA and KDIGO criteria for critically ill patients and to avoid potential harms of urinary retention, skin breakdown/ulcers. Disposition: ICU Code Status: Full presently Critical Care Time: 45min FLaury Kerr DO
[2017-04-01] MEDS: methylPREDNISolone 125 MG* 2 ML VIAL IV SCH (09:53)
[2017-04-01] MEDS: Fosphenytoin(*) 100 MG/2 ML VIAL IV SLOW PU SCH (10:17)
[2017-04-01 10:51] LABS: EGFR Non-African American 15.1 (>60)
[2017-04-01 11:38] LABS: Mean Platelet Volume 8 um3 (7.4-10.4); Platelet Count 255 10^3/ul (150-450)
[2017-04-01 11:42] LABS: Hematocrit 23 % (35-47); Hemoglobin 7.5 g/dl (12.0-16.0); Mean Corpuscular HGB Conc 32 g/dl (31-36); Mean Corpuscular Hemoglobin 27 pg (27-31); Mean Corpuscular Volume 85 fL (80-97); Red Blood Count 2.75 10^6/ul (4.0-5.4); Red Cell Distribution Width 23 % (10.5-15); White Blood Count 20.7 10^3/ul (3.5-10.8)
[2017-04-01] MEDS: Propofol* 100 ML IV SCH (12:03)
[2017-04-01 12:10] LABS: ABS Neutrophils 18.8 10^3/ul (1.5-7.7)
[2017-04-01 12:11] LABS: ABS Lymphocytes 1.9 10^3/ul (1.0-4.8)
[2017-04-01] MEDS ORDERED: Heparin VIAL(*) 5000 UNITS/ML VIAL (FIVE THOUSAND) SUBCUT SCH (14:00)
[2017-04-01] MEDS ORDERED: Fosphenytoin(*) 100 MG/2 ML VIAL IV SLOW PU SCH (14:00)
[2017-04-01] MEDS ORDERED: Propofol* 100 ML IV SCH (15:53)
--- NOTE | 2017-04-01 15:55 | PN ---
Progress Note - Progress Note Date of Service: 04/01/17 Note: CRITICAL CARE MEDICINE Date: 04/01/2017 Time: 1500 Met with proxy/son and grandkids. He expressed understanding of what he has been told and understands withdrawal is in the best interest for the pt. We discussed pts dying process with MSOF and refractory SE. Questions asked and answered. They plan to withdrawal. Molst reflects conversation. Will start morphine gtt to ensure comfort but given her breakthrough seizures when off propofol, we will use propofol with increased dose up until extubation and only use if needed post terminal extubation if required to avoid seizures, but hopefully medications will be adequate otherwise. Disposition: ICU Code Status: comfort care Critical Care Time: 45min F. Emanuel Kerr,
--- NOTE | 2017-04-01 16:09 | DS ---
CRITICAL CARE MEDICINE DISCHARGE SUMMARY ADMISSION DATE: 03/28/2017 ICU ADMISSION DATE: 03/28/2017 ICU DISCHARGE DATE: 04/01/2017 PRIMARY CARE PROVIDER: Sandra. REFERRING PHYSICIAN: Flor. DIAGNOSIS: 1. Pneumoncoccal meningitis with bactermia. 2. Septic shock secondary to above. 3. Refractory status epilepticus. 4. Acute hypoxic respiratory failure. 5. Coma. 6. Multifactorial encephalopathy, including hypertensive and septic. 7. Bilateral mastoiditis. 6. Consumptive/inflammatory anemia. 7. Acute on chronic renal failure with component of acute tubular necrosis. 8. Stage IV colon cancer. ALLERGIES: Amoxicillin. HOSPITAL COURSE: 71 year old female admitted from home after being found poor responsive with altered mental status. Treatment for severe sepsis on admission and spinal fluid and blood cultures revealing pneumococcal infection. Patient developed refractory status epilepticus and required intubation for airway protection and aggressive treatment. She continued with refractory status and failing multisystem organ failures despite maximum support. Family discussions continued with decision for comfort care and terminal extubation 04/01/2017 with family at bedside. Patient with sine wave and asytole without heart tones at 4: 45pm, time of . DISPOSITION: . No autopsy. Teddy Kerr DO
[2017-04-01] MEDS: Morphine PCA ADULT* 5 MG/ML 30 ML PCA SCH ×2 (16:11→16:15)
--- NOTE | 2017-04-01 17:02 | PN ---
Correspondence/Letterhead Correspondence: 04/01/17 RE: HOLLI BEASLEY Work Note To whom it may concern, Holli Beasley has been under care in the intensive care unit at [facility] since March 28, 2017, and specifically under my care April 01, 2017 at the time of her passing. Patients condition had been critical throughout her stay and family presence was requested. Please allow this to document to serve as validation. Sincerely, Teddy Kerr DO Gyroscope Repairer ICU Sole Cementer Critical Care Medicine [address] [place] [address] Bert Kerr DO [id number]
--- NOTE | 2017-04-01 17:05 | PN ---
Correspondence/Letterhead Correspondence: 04/01/17 RE: HOLLI BEASLEY Work Note To whom it may concern, Holli Beasley has been under care in the intensive care unit at [facility] since March 28, 2017, and specifically under my care April 01, 2017 at the time of her passing. Patients condition had been critical throughout her stay and family presence was requested. Efren Carlisley presence was required. Please allow this to document to serve as validation. Sincerely, Teddy Kerr DO Sail Repair Person ICU Qm Nurse Critical Care Medicine [address] [place] [address] Bert Kerr DO [id number]
--- NOTE | 2017-04-01 17:06 | PN ---
Correspondence/Letterhead Correspondence: 04/01/17 RE: HOLLI BEASLEY Work Note To whom it may concern, Holli Beasley has been under care in the intensive care unit at [facility] since March 28, 2017, and specifically under my care April 01, 2017 at the time of her passing. Patients condition had been critical throughout her stay and family presence was requested. Efren Nj presence was required. Please allow this to document to serve as validation. Sincerely, Teddy Kerr DO Financial Retirement Plan Specialist ICU Research Nurse Critical Care Medicine [address] [place] [address] Bert Kerr DO [id number]
--- NOTE | 2017-04-01 17:07 | PN ---
Correspondence/Letterhead Correspondence: 04/01/17 RE: HOLLI BEASLEY Work Note To whom it may concern, Holli Beasley has been under care in the intensive care unit at [facility] since March 28, 2017, and specifically under my care April 01, 2017 at the time of her passing. Patients condition had been critical throughout her stay and family presence was requested. Martha Clark presence was required. Please allow this to document to serve as validation. Sincerely, Teddy Kerr DO Biometric Fingerprinting Technician ICU Auto Service Station Attendant Critical Care Medicine [address] [place] [address] Bert Kerr DO [id number]
[2017-04-01 17:18] VITALS: BP 52/37
--- NOTE | 2017-04-01 20:29 | PN ---
NEUROLOGY PROGRESS NOTE: DATE OF FOLLOWUP: 04/01/17 HISTORY: Overnight, unfortunately, Mrs. Johnston has continued to decline. She is become progressively more hypothermic and bradycardic. Around 5 p.m. last night, her propofol drip was titrated down secondary to bradycardia. She now has a Jessie Hugger on secondary to hypothermia to 32.2 degrees Celsius. She has continued on continuous EEG monitoring and occasionally has been breaking through with burst of epileptiform activity, which have a clinical correlate of left face, head, and arm chronic activity. MEDICATIONS: Hospital medications include: 1. Ceftriaxone 2 g q.12 hours. 2. Chlorhexidine. 3. Diltiazem 20 mg q.6 hours, but this has been held. 4. Fosphenytoin 100 mg 3 times daily. 5. Levetiracetam 1000 mg twice daily. 6. Methylprednisolone 60 mg daily. 7. Midazolam drip 150 mg per hour. 8. Propofol drip currently at 20 mcg/kg/min. 9. Valproic acid 500 mg q.8 hours. The patient was given an additional 1500 mg fosphenytoin load when her fosphenytoin level came back low at 9.9 yesterday. PHYSICAL EXAMINATION: Vital Signs: Temperature 92.3, blood pressure 88/55 on Levophed drip, heart rate 48, oxygen saturation 98% on the ventilator. On examination, she is intubated and unresponsive. There is no evident seizure activity when I am in the room on my evaluation today. Heart is bradycardic. Lungs show coarse breath sounds bilaterally. Her eyes are fixed in mid position. Pupils are approximately 3 mm and unreactive. DORs are absent. Corneal's are absent. There is no clear facial asymmetry. She is not gagging or coughing with suctioning. Dr. Kerr did report that when he briefly held her propofol drip this morning around 9 a.m., she did seem to be trying to trigger the ventilator. On motor examination, she has decreased tone in all 4 extremities with no withdrawal to noxious stimulation. DIAGNOSTIC STUDIES/LAB DATA: CBC has not been repeated this morning. Chemistry panel shows a potassium of 6.1, CO2 11, creatinine of 3.07, BUN of 75. Her lactate is 4.4. She has not been making any urine. Phenytoin level is 17.2 and valproic acid level yesterday was 98. Random vancomycin is 20.5. Her EEG overnight showed a burst suppression pattern, which was very low in terms of the depth of suppression. When propofol would be weaned, she would have recurrence of epileptiform activity over the right parasagittal region with a clinical correlate of chronic activity involving the head to the left, left face, and left arm. Bursts were often asymmetric, more prominent over the right hemisphere. At other times, her EEG was profoundly suppressed with no bursts for minutes at a time. IMPRESSION: A 71-year-old woman with metastatic colon cancer, admitted with Strep pneumoniae meningoencephalitis, and refractory status epilepticus. Unfortunately, her condition continues to decline and she has renal failure and evidence of hypoperfusion with dropping body temperature and increasing hypotension. Given her renal function at this point, I am going to stop her Keppra. I will increase her standing fosphenytoin dose to 150 mg q.8 hours. For now, we will continue the midazolam and propofol drips as well as the standing valproic acid dose and plan on further discussing goals of care with the son when he comes in later today. Her prognosis is extremely grim and given this, we will discontinue long-term video EEG monitoring since all of her seizure activity has been clinically observable. I will continue to follow the patient along with you. [id number]/[facility] #: [id number] GEORGINA
[2017-04-02] MEDS ORDERED: Vancomycin Random Level* NOTE FOLLOW UP ONE (05:30)
--- NOTE | 2017-04-02 10:41 | ED ---
Jos Estrada Abhishek, scribed for Chico Ray MD on 03/28/17 at 2251 . Altered Mental Status - HPI Summary HPI Summary: This patient is a 71 year old F BIBA with a chief complaint of altered mental status since 2044. The history was given by the EMS and the patients friend. The pt is responsive and alert. EMS reports that the patient was found on the ground, unresponsive, sugar level of 121, diaphoresis, tachycardia (148 bpm) and tachypneic as well as reports of prior dialysis hx. Pertinent PMHx includes several cancers and DM. The last reported time patient was responsive and seen was noted to be last night (2129) talking with her friend. Pt also does not withdraw from pain, and is capable of movement in her extremities (non- purposeful and random). Reports from the patients friend reveal that pt has had severe abd pain prior to todays event and pertinent PMHx of aortic dissection. - History Of Current Complaint Stated Complaint: DIFF BREATHING Hx Obtained From: EMS, Other: - Pt's friend Onset/Duration: Still Present Aggravating Factor(s): Nothing Alleviating Factor(s): Nothing - Allergies/Home Medications Allergies/Adverse Reactions: Allergies Allergy/AdvReac Type Severity Reaction Status Date / Time Amoxicillin Allergy Intermediate Itching Verified 03/22/17 16:43 PMH/Surg Hx/FS Hx/Imm Hx Endocrine/Hematology History: Reports: Hx Anemia Denies: Hx Anticoagulant Therapy, Hx Bone Marrow Disease, Hx Diabetes, Hx Sickle Cell Disease Cardiovascular History: Reports: Hx Aneurysm - Ascending Aortic Aneurysm, Hx Coronary Artery Disease - CAROTID DISEASE, Hx Embolism - PE, Hx Hypertension, Hx Peripheral Vascular Disease, Other Cardiovascular Problems/Disorders - DX THORACIC AORTIC ANEURYSM, DYSLIPIDEMIA Denies: Hx Cardiac Arrest Respiratory History: Reports: Hx Pulmonary Embolism - 12/2014, Other Respiratory Problems/Disorders - FREQUENT SOB GI History: Reports: Hx Gastroesophageal Reflux Disease, Other GI Disorders - DX 12/14 MALIGNANT NEOPLASM OF ASCENDING COLON History: Denies: Hx Renal Disease Musculoskeletal History: Reports: Other Musculoskeletal History - 1987 FX RIGHT ANKLE, LEFT BUNIONECTOMY 11/2014 Denies: Hx Arthritis, Hx Osteoporosis Sensory History: Reports: Hx Contacts or Glasses Denies: Hx Cataracts, Hx Glaucoma, Hx Hearing Aid Opthamlomology History: Reports: Hx Contacts or Glasses Denies: Hx Cataracts, Hx Glaucoma Neurological History: Reports: Hx Seizures - 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 [facility] [place] Anesthesia Reactions: No - Immunization History Date of Influenza Vaccine: 02/2017 Infectious Disease History: Unable to Obtain/Confirm Infectious Disease History: Reports: Hx Hepatitis - 2014 HEP C, TREATED, Hx of Known/Suspected MRSA - PREVIOUS HX IN WOUND Denies: Traveled Outside the [place] in Last 30 Days - Family History Known Family History: Positive: Other - aneurysm, and peripheral vascular disease Family History: No family history of breast cancer, malignant hyperthermia, or anesthesia reaction. - Social History Alcohol Use: None Alcohol Amount: Hx of heavy drinking Substance Use Type: Reports: None Substance Use Comment - Amount & Last Used: NOT RECENT Hx Tobacco Use: Yes Smoking Status (MU): Former Smoker Type: Cigarettes Amount Used/How Often: 5-6/DAY 25 YRS Length of Time of Smoking/Using Tobacco: 25 YRS Have You Smoked in the Last Year: No Review of Systems Positive: Skin Diaphoresis Eyes: Negative ENT: Negative Positive: Palpitations - tachycardia Respiratory: Other - tachypneic Positive: Abdominal Pain Genitourinary: Negative Musculoskeletal: Negative Skin: Negative Neurological: Other Positive: Syncope - unresponsive (found on the ground) Psychological: Other - altered mental status All Other Systems Reviewed And Are Negative: Yes Physical Exam - Summary Physical Exam Summary: Constitutional: Well-developed, Well-nourished, Alert. (-) Distressed Skin: Warm, Dry HENT: dry oral mucous membranes Eyes: Pupils are 2 mm, sluggish Neck: Musculoskeletal ROM normal neck. (-) JVD, (-) Stridor, (-) Tracheal deviation Cardio: Tachycardia Pulmonary/Chest wall: Tachypnea Abd: Soft, (-) Tenderness, (-) Distension, (-) Guarding, (-) Rebound Musculoskeletal: (-) Edema Lymph: (-) Cervical adenopathy Neuro: WITHDRAWS FROM PAIN, PROTECTING AIRWAY Psych: Mood and affect Normal Triage Information Reviewed: Yes Vital Signs On Initial Exam: Initial Vitals Temp Pulse Resp BP Pulse Ox 97.3 F 150 26 229/126 99 03/28/17 21:40 03/28/17 21:40 03/28/17 21:40 03/28/17 21:40 03/28/17 21:40 Vital Signs Reviewed: Yes Procedures - Lumbar Puncture Position: Lateral Decubitus - LEFT Aseptic Technique: Local Anesthesia Anesthesia Used: 1.0% Lido Spinal Needle Used: 22 Gauge - 3.5 INCH Lumbar Puncture Note: Multiple attempts at L3L4 and L4L5 interspaces, sterile technique followed. Significant scoliosis limited success of lumbar puncture. Unable to obtain CSF , only venous plexus blood. Dr. Nickerson notified of no success with LP. Diagnostics - Vital Signs Vital Signs Temp Pulse Resp BP Pulse Ox 03/28/17 22:11 99 03/28/17 22:03 26 03/28/17 21:58 26 03/28/17 21:40 97.3 F 150 26 229/126 99 - Laboratory Lab Results: Lab Results 03/28/17 03/28/17 03/28/17 Range/Units 21:40 21:40 21:40 WBC 26.5 H (3.5-10.8) 10^3/ul RBC 3.60 L (4.0-5.4) 10^6/ul Hgb 10.1 L (12.0-16.0) g/dl Hct 29 L (35-47) % MCV 81 (80-97) fL MCH 28 (27-31) pg MCHC 35 (31-36) g/dl RDW 20 H (10.5-15) % Plt Count 413 (150-450) 10^3/ul MPV 8 (7.4-10.4) um3 Neut % (Auto) 95.0 H (38-83) % Lymph % (Auto) 2.9 L (25-47) % Prentiss % (Auto) 1.8 (1-9) % Eos % (Auto) 0.1 (0-6) % Baso % (Auto) 0.2 (0-2) % Absolute Neuts (auto) 25.2 H (1.5-7.7) 10^3/ul Absolute Lymphs (auto) 0.8 L (1.0-4.8) 10^3/ul Absolute Monos (auto) 0.5 (0-0.8) 10^3/ul Absolute Eos (auto) 0 (0-0.6) 10^3/ul Absolute Basos (auto) 0.1 (0-0.2) 10^3/ul Absolute Nucleated RBC 0.02 10^3/ul Nucleated RBC % 0.1 ABG pH 7.53 H (7.35-7.45) ABG pCO2 26 L (35-45) mmHg ABG pO2 104 H (80-100) mmHg ABG HCO3 24.7 (19-31) mmol/L ABG O2 Saturation 99.1 H (95-98) % ABG Base Excess -0.3 (-2.0-2.0) Sodium 135 (133-145) mmol/L Potassium TNP Chloride 102 (101-111) mmol/L Carbon Dioxide 23 (22-32) mmol/L Anion Gap 10 (2-11) mmol/L BUN 21 (6-24) mg/dL Creatinine 1.24 H (0.51-0.95) mg/dL Est GFR ( Amer) 55.2 (>60) Est GFR (Non-Af Amer) 42.9 (>60) BUN/Creatinine Ratio 16.9 (8-20) Glucose 117 H (70-100) mg/dL Lactic Acid (0.5-2.0) mmol/L Calcium 9.5 (8.6-10.3) mg/dL Total Bilirubin 0.70 (0.2-1.0) mg/dL AST TNP ALT 22 (7-52) U/L Alkaline Phosphatase 167 H (34-104) U/L Total Creatine Kinase 102 (10-223) U/L Total Protein 9.8 H (6.4-8.9) g/dL Albumin 2.4 L (3.2-5.2) g/dL Globulin 7.4 H (2-4) g/dL Albumin/Globulin Ratio 0.3 L (1-3) Urine Color Urine Appearance Urine pH (5-9) Ur Specific Edwards (1.010-1.030) Urine Protein (Negative) Urine Ketones (Negative) Urine Blood (Negative) Urine Nitrate (Negative) Urine Bilirubin (Negative) Urine Urobilinogen (Negative) Ur Leukocyte Esterase (Negative) Urine WBC (Auto) (Absent) Urine RBC (Auto) (Absent) Urine Bacteria (Absent) Urine Glucose (Negative) Salicylates < 2.50 (<30) mg/dL Acetaminophen < 15 mcg/mL Serum Alcohol < 10 (<10) mg/dL Blood Type Antibody Screen 03/28/17 03/28/17 03/28/17 Range/Units 21:40 21:40 22:08 WBC (3.5-10.8) 10^3/ul RBC (4.0-5.4) 10^6/ul Hgb (12.0-16.0) g/dl Hct (35-47) % MCV (80-97) fL MCH (27-31) pg MCHC (31-36) g/dl RDW (10.5-15) % Plt Count (150-450) 10^3/ul MPV (7.4-10.4) um3 Neut % (Auto) (38-83) % Lymph % (Auto) (25-47) % Prentiss % (Auto) (1-9) % Eos % (Auto) (0-6) % Baso % (Auto) (0-2) % Absolute Neuts (auto) (1.5-7.7) 10^3/ul Absolute Lymphs (auto) (1.0-4.8) 10^3/ul Absolute Monos (auto) (0-0.8) 10^3/ul Absolute Eos (auto) (0-0.6) 10^3/ul Absolute Basos (auto) (0-0.2) 10^3/ul Absolute Nucleated RBC 10^3/ul Nucleated RBC % ABG pH (7.35-7.45) ABG pCO2 (35-45) mmHg ABG pO2 (80-100) mmHg ABG HCO3 (19-31) mmol/L ABG O2 Saturation (95-98) % ABG Base Excess (-2.0-2.0) Sodium (133-145) mmol/L Potassium Chloride (101-111) mmol/L Carbon Dioxide (22-32) mmol/L Anion Gap (2-11) mmol/L BUN (6-24) mg/dL Creatinine (0.51-0.95) mg/dL Est GFR ( Amer) (>60) Est GFR (Non-Af Amer) (>60) BUN/Creatinine Ratio (8-20) Glucose (70-100) mg/dL Lactic Acid 4.2 H* (0.5-2.0) mmol/L Calcium (8.6-10.3) mg/dL Total Bilirubin (0.2-1.0) mg/dL AST ALT (7-52) U/L Alkaline Phosphatase (34-104) U/L Total Creatine Kinase (10-223) U/L Total Protein (6.4-8.9) g/dL Albumin (3.2-5.2) g/dL Globulin (2-4) g/dL Albumin/Globulin Ratio (1-3) Urine Color Yellow Urine Appearance Clear Urine pH 6.0 (5-9) Ur Specific Edwards 1.013 (1.010-1.030) Urine Protein 1+(30 mg/dl) H (Negative) Urine Ketones Negative (Negative) Urine Blood 2+ H (Negative) Urine Nitrate Negative (Negative) Urine Bilirubin Negative (Negative) Urine Urobilinogen Negative (Negative) Ur Leukocyte Esterase Negative (Negative) Urine WBC (Auto) Trace(0-5/hpf) (Absent) Urine RBC (Auto) 3+(>10/hpf) H (Absent) Urine Bacteria Absent (Absent) Urine Glucose 2+(150 mg/dl) H (Negative) Salicylates (<30) mg/dL Acetaminophen mcg/mL Serum Alcohol (<10) mg/dL Blood Type O Positive Antibody Screen Negative Result Diagrams: 04/01/17 10:08 04/01/17 07:55 Lab Statement: Any lab studies that have been ordered have been reviewed, and results considered in the medical decision making process. - Radiology Chest X-ray Radiology Interpretation Completed By: Radiologist - CXR reveals, per radiologist, No radiographic evidence for acute cardiopulmonary abnormality on this portable chest x-ray. ED physician has reviewed this radiology report and agrees. - EKG 2147 Cardiac Rate: NL EKG Rhythm: Sinus Tachycardia - [address] Segment: Normal EKG Interpretation: An EKG at 2147 reveals 131 bpm sinus tachycardia, and negative STEMI Re-Evaluation - Re-Evaluation 2304 Re-Evaluation Time: 23:05 Comment: ReEval of pt at 2304 reveals bilateral ear exam normal, and No swelling over the mastoids 0 Re-Evaluation Time: 23:20 Comment: During a reevaluation at 2319 we called patient's friend Rashida and she gave CONSENT for lumbar puncture, with risks of bleeding, infection and headache discussed. We were unable to reach her son at the listed phone number ( Phone number was not receiving incoming calls). Altered Mental Statu Course/Dx - Course Course Of Treatment: This patient is a 71 year old F BIBA with a chief complaint of altered mental status since 2044. The history was given by the EMS and the patients friend. The pt is responsive and alert. EMS reports that the patient was found on the ground, unresponsive, sugar level of 121, diaphoresis, tachycardia (148 bpm) and tachypneic as well as reports of prior dialysis hx. Pertinent PMHx includes several cancers and DM. The last reported time patient was responsive and seen was noted to be last night (2129) talking with her friend. Pt also does not withdraw from pain, and is capable of movement in her extremities (non-purposeful and random). Reports from the patients friend reveal that pt has had severe abd pain prior to todays event and pertinent PMHx of aortic dissection. CXR reveals, per radiologist, No radiographic evidence for acute cardiopulmonary abnormality on this portable chest x-ray. ED physician has reviewed this radiology report and agrees. An EKG at 2147 reveals 131 bpm sinus tachycardia, and negative STEMI. We consulted Dr. Aldridge at 2310 and he recommend no emergent EEG and we decided we would do lumbar puncture given no obvious of infection. During a reevaluation at 2319 we called patient's friend Rashida and she gave permission for lumbar puncture. We were unable to reach her son at the listed phone number (Phone number was not receiving incoming calls). Etiologies including seizure, sepsis, meningitis, aortic dissection and CO2 narcosis were all investigated in the ED. Further workup and management by hospitalist service in ICU. - Diagnoses Discharge Diagnoses: Sepsis, Mastoiditis of both sides, Altered mental status, Unresponsive - Critical Care Time Critical Care Time: 75-104 min Discharge - Discharge Plan Condition: Critical Disposition: ADMITTED TO [facility] documentation as recorded by the Jos francois Abhishek accurately reflects the service I personally performed and the decisions made by , Chico Ray MD.
[2017-04-02] MEDS ORDERED: Vancomycin Trough Check NOTE FOLLOW UP ONE (16:00)
== END 2017-04-01 16:45 | disposition expired | DRG 871 ==
LOC: ED 21:34 → ICU 23:24
PROVIDERS: ADMIT Internal Medicine; ATTEND Internal Medicine Critical Care Medicine
PROC: 00JU3ZZ Inspection of Spinal Canal, Percutaneous Approach (ICD-10-PCS; principal; 2017-03-29)
PROC: 5A1945Z Respiratory Ventilation, 24-96 Consecutive Hours (ICD-10-PCS; 2017-03-30)
PROC: 0BH17EZ Insertion of Endotracheal Airway into Trachea, Via Natural or Artificial Opening (ICD-10-PCS; 2017-03-30)
PROC: 4A10X4Z Monitoring of Central Nervous Electrical Activity, External Approach (ICD-10-PCS; 2017-03-31)
DX: A41.9 Sepsis, unspecified organism (principal); G00.1 Pneumococcal meningitis; R40.20 Unspecified coma; J96.01 Acute respiratory failure with hypoxia; N17.0 Acute kidney failure with tubular necrosis; R65.21 Severe sepsis with septic shock; C79.9 Secondary malignant neoplasm of unspecified site; M41.9 Scoliosis, unspecified; G04.90 Encephalitis and encephalomyelitis, unspecified; G93.41 Metabolic encephalopathy; C18.2 Malignant neoplasm of ascending colon; I67.4 Hypertensive encephalopathy; G40.401 Other generalized epilepsy and epileptic syndromes, not intractable, with status epilepticus; H70.93 Unspecified mastoiditis, bilateral; K21.9 Gastro-esophageal reflux disease without esophagitis; Z88.0 Allergy status to penicillin; B19.20 Unspecified viral hepatitis C without hepatic coma; F41.9 Anxiety disorder, unspecified; I25.10 Atherosclerotic heart disease of native coronary artery without angina pectoris; Z86.718 Personal history of other venous thrombosis and embolism; Z86.14 Personal history of Methicillin resistant Staphylococcus aureus infection; Z87.891 Personal history of nicotine dependence; R00.0 Tachycardia, unspecified; Z80.3 Family history of malignant neoplasm of breast; R68.0 Hypothermia, not associated with low environmental temperature; R00.1 Bradycardia, unspecified; N18.9 Chronic kidney disease, unspecified; D64.89 Other specified anemias; I12.9 Hypertensive chronic kidney disease with stage 1 through stage 4 chronic kidney disease, or unspecified chronic kidney disease; E11.22 Type 2 diabetes mellitus with diabetic chronic kidney disease; E11.51 Type 2 diabetes mellitus with diabetic peripheral angiopathy without gangrene
CPT/HCPCS: 36415; 70450; 71010; 71275; 74174; 80048; 80053; 80164; 80185; 80186; 80202; 80307; 80320; 80329; 81003; 81015; 82140; 82550; 82803; 82945; 83605; 84157; 85025; 85027; 85610; 85730; 86850; 86900; 86901; 87040; 87070; 87077; 87184; 87186; 87205; 89051; 93005; 94002; 94003; 94760; 95951; 99285; A9270-GY; G0480; J0330; J0360; J0696; J1165; J1200; J1644; J2060; J2250; J2270; J2543; J2704; J2930; J3010; J3370; J3480; J3490; Q2009; Q9967